=== PATIENT | female | born 1960 | race African-American/Black ===

== ENCOUNTER 2016-11-04 11:56 | Emergency (ER) | payer OTHER ==
[2016-11-04 12:15] VITALS: BP 137/72; PULSE 64; TEMP 97.9; BMI 35.9
--- NOTE | 2016-11-04 12:32 | PDOC ---
History of Present Illness - General Chief Complaint: Pain Stated Complaint: SWOLLEN LT LEG Time Seen by Provider: 11/04/16 12:25 History Source: Patient Exam Limitations: No Limitations - History of Present Illness Initial Comments: CHIEF COMPLAINT: 55 y/o afebrile female with PMH RA, HTN, HLD, GA without stents c/o left lower leg pain for the past 2 days. 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 She is worried about a blood clot although she's never had one in the past. She denies f/c, n/v/d, cough, hemoptysis, CP, SOB, trauma to affected leg, redness/swelling to affected leg. Vital signs on arrival are within normal limits. REVIEW OF SYSTEMS: GENERAL/CONSTITUTIONAL: No fever/chills. No weakness. No weight change. CARDIOVASCULAR: No chest pain or shortness of breath. RESPIRATORY: No cough, wheezing, or hemoptysis. GENITOURINARY: No dysuria, frequency, or change in urination. MUSCULOSKELETAL: +left lower leg pain. No neck or back pain. SKIN: No rash or easy bruising. NEUROLOGIC: No headache, vertigo, loss of consciousness, or loss of sensation. PHYSICAL EXAM: VITAL_SIGNS: within normal limits GENERAL_APPEARANCE: alert, cooperative, no obvious discomfort. The patient ambulates without limp. MENTAL_STATUS: speech clear, oriented X 3, responds appropriately to questions. NEURO: motor intact and sensory intact in injured extremity. EXTREMITIES: good pulse in injured extremity. TTP of left anterior proximal lower extremity. +deann's sign left lower extremity. No tibial plateau TTP. Warmth to anterior lower extremity without erythema or edema. SKIN: warm, dry, good color. Past History - Past Medical History Allergies/Adverse Reactions: Allergies Allergy/AdvReac Type Severity Reaction Status Date / Time cephalexin monohydrate Allergy Rash Verified 11/04/16 12:12 [From [employer]] Home Medications: Ambulatory Orders Amlodipine Besylate [Norvasc -] 10 mg PO DAILY 10/10/13 Atorvastatin Ca [Lipitor] 40 mg PO HS 10/10/13 Folic Acid 0.8 mg PO DAILY 10/10/13 Methotrexate [Mexate -] 20 mg PO Q7D 10/10/13 Metoprolol Succinate 100 mg PO DAILY 10/10/13 Cardiac Disorders: Yes ([place]) Diabetes: Yes HTN: Yes Hypercholesterolemia: Yes Other medical history: RA. - Surgical History Gastric Stapling: No (GASTRIC SLEEVE) - Psycho/Social/Smoking Cessation Hx Anxiety: No Suicidal Ideation: No Smoking History: Never smoked If you are a former smoker, when did you quit?: 2007 Information on smoking cessation initiated: No Hx Alcohol Use: No Drug/Substance Use Hx: No Substance Use Type: None *Physical Exam - Vital Signs Last Vital Signs Temp Pulse Resp BP Pulse Ox 97.9 F 64 18 137/72 100 11/04/16 12:12 11/04/16 12:12 11/04/16 12:12 11/04/16 12:12 11/04/16 12:12 Medical Decision Making - Medical Decision Making A/P: 55 y/o afebrile female with left calf pain. Plan is as follows: 1. Doppler left LE Left lower extremity doppler IMPRESSION: There is no evidence of DVT in left lower extremity. Gave the results to the patient. Suggested she take her normal pain medication at home for her leg pain, elevate and ice the affected leg and f/u with her doctor if symptoms persist. The patient verbalizes understanding of all instructions, has no further questions and is awaiting discharge. *DC/Admit/Observation/Transfer Diagnosis at time of Disposition: Leg pain, left - Discharge Dispostion Disposition: HOME Condition at time of disposition: Good - Referrals Referrals: Mark Garner [Primary Care Provider] - Call tomorrow - Patient Instructions Printed Discharge Instructions: DI for Leg Pain Additional Instructions: Discharge Instructions: -Take OTC pain medications for your leg pain -Elevate and ice your leg to help with swelling/pain -Follow up with your doctor if symptoms persist
== END 2016-11-04 13:22 | disposition home or self-care (01) ==
LOC: JERFT 11:56
DX: M79.662 Pain in left lower leg (principal); I25.2 Old myocardial infarction; I11.9 Hypertensive heart disease without heart failure; E78.00 Pure hypercholesterolemia, unspecified; E11.9 Type 2 diabetes mellitus without complications; M06.9 Rheumatoid arthritis, unspecified
CPT/HCPCS: 93971-TC; 99281-25

== ENCOUNTER 2017-05-03 11:28 | Inpatient (IN) | payer OTHER ==
--- NOTE | 2017-05-03 11:40 | PDOC ---
History of Present Illness - General Stated Complaint: FEVER Past History - Past Medical History Allergies/Adverse Reactions: Allergies Allergy/AdvReac Type Severity Reaction Status Date / Time cephalexin monohydrate Allergy Rash Verified 11/04/16 12:12 [From [facility]] Home Medications: Ambulatory Orders Amlodipine Besylate [Norvasc -] 10 mg PO DAILY 10/10/13 Atorvastatin Ca [Lipitor] 40 mg PO HS 10/10/13 Folic Acid 0.8 mg PO DAILY 10/10/13 Methotrexate [Mexate -] 20 mg PO Q7D 10/10/13 Metoprolol Succinate 100 mg PO DAILY 10/10/13 Cardiac Disorders: Yes (ID) Diabetes: Yes HTN: Yes Hypercholesterolemia: Yes - Surgical History Gastric Stapling: No (GASTRIC SLEEVE) - Psycho/Social/Smoking Cessation Hx Anxiety: No Suicidal Ideation: No Smoking History: Never smoked If you are a former smoker, when did you quit?: 2007 Hx Alcohol Use: No Drug/Substance Use Hx: No Substance Use Type: None
--- NOTE | 2017-05-03 12:21 | PDOC ---
History of Present Illness - General History Source: Patient, Old Records Exam Limitations: No Limitations - History of Present Illness Initial Comments: 05/03/17 12:29 The patient is a 56-year-old woman, accompanied by her daughter, with a significant past medical history of hypertension, hypercholesterolemia, myocardial infarction (2004;no stents), diabetes mellitus (diet controlled) and rheumatoid arthrtitis who presents to the emergency department with a fever. Upon triage, vitals are significant for a temperature of 103.2 and a heartbeat of 98bpm. Patient states that her symptoms started approximately 4 days ago with a brief period of chest discomfort that spontaneously resolved. The next day, she developed an intermittent nonproductive cough, a sore throat, chills and generalized body aches. She reports compliance with Nyquil without much help. She ultimately developed a headache, for which she took both Excedrin and Tylenol this morning at 06:00 AM without relief. No lightheadedness, dizziness, nausea, vomiting. No urinary complaints. Allergies: Cephalexin Monohydrate Past Surgical History: Gastric Sleeve Social History: Former smoker. No EtOH and recreational drug use. Primary Care Physician: Located in [place], [place] <Manasa Lorenzo - Last Filed: 05/03/17 14:55> <Nichol Baron - Last Filed: 05/03/17 17:00> - General Chief Complaint: SIRS, Suspected/Possible Stated Complaint: FEVER Time Seen by Provider: 05/03/17 11:40 Past History <Manasa Lorenzo - Last Filed: 05/03/17 14:55> - Past Medical History Cardiac Disorders: Yes ([place]) Diabetes: Yes HTN: Yes Hypercholesterolemia: Yes - Surgical History Gastric Stapling: No (GASTRIC SLEEVE) - Psycho/Social/Smoking Cessation Hx Anxiety: No Suicidal Ideation: No Smoking History: Never smoked If you are a former smoker, when did you quit?: 2007 Hx Alcohol Use: No Drug/Substance Use Hx: No Substance Use Type: None <Nichol Baron - Last Filed: 05/03/17 17:00> - Past Medical History Allergies/Adverse Reactions: Allergies Allergy/AdvReac Type Severity Reaction Status Date / Time cephalexin monohydrate Allergy Rash Verified 05/03/17 12:11 [From [employer]] Home Medications: Ambulatory Orders Amlodipine Besylate [Norvasc -] 10 mg PO DAILY 10/10/13 Folic Acid 1 mg PO DAILY 10/10/13 Methotrexate [Mexate -] 25 mg PO Q7D 10/10/13 Metoprolol Succinate 100 mg PO DAILY 10/10/13 Prednisone 5 mg PO DAILY 05/03/17 Review of Systems - Review of Systems Able to Perform ROS?: Yes Comments:: 05/03/17 12:31 GENERAL/CONSTITUTIONAL: Yes: Fever. Chills. Body Aches. HEAD, EYES, EARS, NOSE AND THROAT: Yes: Sore throat. No change in vision. No ear pain or discharge. CARDIOVASCULAR: Yes: Chest discomfort. No shortness of breath. RESPIRATORY: Yes: Cough. No wheezing, or hemoptysis. GASTROINTESTINAL: No nausea, vomiting, diarrhea or constipation. GENITOURINARY: No dysuria, frequency, or change in urination. MUSCULOSKELETAL: No joint or muscle swelling or pain. No neck or back pain. SKIN: No rash NEUROLOGIC: Yes: Headache. No vertigo, loss of consciousness, or change in strength/sensation. ENDOCRINE: No increased thirst. No abnormal weight change. HEMATOLOGIC/LYMPHATIC: No anemia, easy bleeding, or history of blood clots. ALLERGIC/IMMUNOLOGIC: No hives or skin allergy. <Manasa Lorenzo - Last Filed: 05/03/17 14:55> *Physical Exam - Vital Signs Last Vital Signs Temp Pulse Resp BP Pulse Ox 103.2 F H 98 H 20 137/78 05/03/17 11:40 05/03/17 11:40 05/03/17 11:40 05/03/17 11:40 05/03/17 11:40 <Manasa Lorenzo - Last Filed: 05/03/17 14:55> - Vital Signs Last Vital Signs Temp Pulse Resp BP Pulse Ox 103.2 F H 98 H 20 137/78 05/03/17 11:40 05/03/17 11:40 05/03/17 11:40 05/03/17 11:40 05/03/17 11:40 - Physical Exam Comments: GENERAL: Awake, alert, and fully oriented, in no acute distress. Intermittent loose cough. HEAD: No signs of trauma EYES: PERRLA, EOMI, sclera anicteric, conjunctiva clear ENT: Auricles normal inspection, hearing grossly normal, nares patent, oropharynx erythematous without exudates. Moist mucosa NECK: Normal ROM, supple, no lymphadenopathy, JVD, or masses LUNGS: Breath sounds equal, clear to auscultation bilaterally. No wheezes, and no crackles HEART: Regular rate and rhythm, normal S1 and S2, no murmurs, rubs or gallops ABDOMEN: Soft, nontender, normoactive bowel sounds. No guarding, no rebound. No masses EXTREMITIES: Normal range of motion, no edema. No clubbing or cyanosis. No cords, erythema, or tenderness NEUROLOGICAL: Cranial nerves II through XII grossly intact. Normal speech, normal gait SKIN: Warm, Dry, normal turgor, no rashes or lesions noted. <Nichol Baron - Last Filed: 05/03/17 17:00> ED Treatment Course - LABORATORY CBC & Chemistry Diagram: 05/03/17 13:00 05/03/17 13:00 - RADIOLOGY Radiograph Interpretation: 05/03/17 14:55 EXAM RAD/CHEST X-RAY PORTABLE Interpreted by Dr. Zack Lopes IMPRESSION: Since 01/03/2011 again there is the prominent mediastinum but no sign of an acute process. The angles are sharp. The soft tissues are intact and there are some degenerative changes. <Manasa Lorenzo - Last Filed: 05/03/17 14:55> - LABORATORY CBC & Chemistry Diagram: 05/03/17 13:00 05/03/17 13:00 <Nichol Baron - Last Filed: 05/03/17 17:00> Medical Decision Making - Medical Decision Making 05/03/17 16:35 Patient initially significantly improved with IV fluids, IV tylenol. Now she has chills again, rigors. Initial lactate was elevated. Patient with leukocytosis. UA wnl. CXR no consolidation, however, I suspect the etiology is respiratory, as she has a hacking cough and initial O2Sat was 95%. 05/03/17 16:55 Pt developed itching with levaquin. Levaquin was stopped. Will change to azithro. <Nichol Baron - Last Filed: 05/03/17 17:00> *DC/Admit/Observation/Transfer - Attestations Scribe Attestion: 05/03/17 12:31 Documentation prepared by Manasa Lorenzo, acting as medical physicist for Nichol Baron MD. <Manasa Lorenzo - Last Filed: 05/03/17 14:55> - Discharge Dispostion Admit: Yes <Nichol Baron - Last Filed: 05/03/17 17:00> Diagnosis at time of Disposition: Elevated lactic acid level Pneumonia Qualifiers: Pneumonia type: due to unspecified organism Laterality: unspecified laterality Lung location: unspecified part of lung Qualified Code(s): J18.9 - Pneumonia, unspecified organism Fever Qualifiers: Fever type: unspecified Qualified Code(s): R50.9 - Fever, unspecified - Discharge Dispostion Condition at time of disposition: Stable
[2017-05-03] MEDS ORDERED: ACETAMINOPHEN 1000 MG/100 ML VIAL (NON FORMULARY) IVPB ONE (12:37)
[2017-05-03] MEDS ORDERED: SODIUM CHLORIDE 1,000 ML IV STA ×2 (12:37→13:51)
[2017-05-03] MEDS ORDERED: ACETAMINOPHEN INJECTION 100 ML IVPB ONE (12:51)
[2017-05-03 13:14] LABS: BASOPHIL 0.8 % (0-2.0); EOSINOPHIL 0.1 % (0-4.5); MCH 30.2 pg (25.7-33.7); MCHC 32.6 g/dl (32.0-36.0); MEAN CELL VOLUME 92.5 fl (80-96); MEAN PLT VOLUME 10.5 fl (7.5-11.1); NEUTROPHILS 77.7 % (42.8-82.8); PLATELET COUNT 178 K/MM3 (134-434); RDW 15.3 % (11.6-15.6); WHITE BLOOD COUNT 15.7 K/mm3 (4.0-10.0)
[2017-05-03 13:16] LABS: URINE APPEARANCE CLEAR; URINE BILIRUBIN NEGATIVE (NEGATIVE); URINE BLOOD NEGATIVE (NEGATIVE); URINE COLOR YELLOW; URINE GLUCOSE (UA) NEGATIVE (NEGATIVE); URINE KETONE NEGATIVE (NEGATIVE); URINE LEUK ESTERASE NEGATIVE (NEGATIVE); URINE NITRITE NEGATIVE (NEGATIVE); URINE PROTEIN NEGATIVE (NEGATIVE); URINE UROBILINOGEN 4.0 E.U/dl mg/dL (0.2-1.0)
[2017-05-03 13:31] LABS: ALBUMIN 3.3 g/dl (3.4-5.0); ALK PHOS 105 U/L (45-117); ANION GAP 10 (8-16); CALCIUM 8.9 mg/dL (8.5-10.1); CO2 28 mmol/L (21-32); CREATININE 1.1 mg/dL (0.55-1.02); GLUCOSE,RANDOM 116 mg/dL (74-106); SGOT/AST 14 U/L (15-37); SGPT/ALT 21 U/L (12-78); TOT PROT 7.9 g/dl (6.4-8.2)
[2017-05-03] MEDS ORDERED: PANTOPRAZOLE SODIUM 40 MG in SODIUM CHLORIDE 100 ML IVPB ONE (13:51)
[2017-05-03] MEDS ORDERED: PANTOPRAZOLE SODIUM 100 ML IVPB ONE (13:56)
[2017-05-03] MEDS ORDERED: IBUPROFEN 600 MG TABLET (FP) PO ONE ×2 (16:28→16:36)
[2017-05-03] MEDS ORDERED: LEVOFLOXACIN 750 MG IVPB 150 ML IVPB ONE (16:36)
[2017-05-03] MEDS: LEVOFLOXACIN 750 MG IVPB 150 ML IVPB ONE ×2 (16:51→16:57)
[2017-05-03] MEDS ORDERED: AZITHROMYCIN IVPB 500 MG in DEXTROSE 5%-WATER - 250 ML IVPB ONE (16:53)
[2017-05-03] MEDS ORDERED: AZITHROMYCIN IVPB 250 ML IVPB ONE ×2 (16:59→17:00)
--- NOTE | 2017-05-03 17:25 | HP ---
Admitting History and Physical - Primary Care Physician PCP: not on staff - Admission Chief Complaint: Fever History of Present Illness: 56F with history of HTN HLD DM (Diet controlled) CAD MT in the past no stents and rheumatoid arthritis on methotrexate and chronic prednisone presents to the ED with a 4 day history of fevers. She states 4 days ago she had some chest discomfort which went away and then the next day she had fevers chills and sore throat and she felt better that night. the third day she got much worse and had fevers measured as high as 103.5 chills rigors sore throat severe headaches and seeing yellow. She also states she had a dry cough. She denies diarrhea or sputum production. She denies urinary symptoms. In ED Tmax 103.2. 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 She is allergic to keflex. She was given levaquin in the ED and broke out in hives. levawuin stopped and treated with benadryl then given azithromycin. History Source: Patient Limitations to Obtaining History: Clinical Condition - Past Medical History Additional Past Medical History: PMH: HTN HLD (stopped lipitor due to muscle cramps) DM (Diet controlled), Rheumatoid arthritis on methotrexate and prednisone CAD s/p MT no stents PSH: Knee Surgery Heel surgery Gastric sleeve tubal ligation - Smoking History Smoking history: Former smoker If you are a former smoker, when did you quit?: 2007 - Alcohol/Substance Use Hx Alcohol Use: No History of Substance Use: reports: None Home Medications - Allergies Allergies/Adverse Reactions: Allergies Allergy/AdvReac Type Severity Reaction Status Date / Time cephalexin monohydrate Allergy Rash Verified 05/03/17 12:11 [From Keflex] levofloxacin [From Levaquin] Allergy Rash Verified 05/03/17 18:56 - Home Medications Home Medications: Ambulatory Orders Amlodipine Besylate [Norvasc -] 10 mg PO DAILY 10/10/13 Folic Acid 1 mg PO DAILY 10/10/13 Methotrexate [Mexate -] 25 mg PO Q7D 10/10/13 Metoprolol Succinate 100 mg PO DAILY 10/10/13 Aspirin [ASA -] 81 mg PO DAILY 05/03/17 Omeprazole 40 mg PO DAILY 05/03/17 Prednisone 5 mg PO DAILY 05/03/17 Review of Systems - Review of Systems Constitutional: reports: Chills, Fever, Loss of Appetite, Malaise Eyes: reports: Other (seeing yellow) HENT: reports: No Symptoms Neck: reports: No Symptoms Cardiovascular: reports: Chest Pain, Shortness of Breath Respiratory: reports: No Symptoms Gastrointestinal: reports: No Symptoms Genitourinary: reports: No Symptoms Breasts: reports: No Symptoms Reported Musculoskeletal: reports: No Symptoms Integumentary: reports: No Symptoms Neurological: reports: Headache Hematology/Lymphatic: reports: No Symptoms Psychiatric: reports: No Symptoms Physical Examination Vital Signs: Vital Signs Temperature 101.3 F H 05/03/17 17:07 Pulse Rate 92 H 05/03/17 17:07 Respiratory Rate 20 05/03/17 17:07 Blood Pressure 155/96 05/03/17 17:07 O2 Sat by Pulse Oximetry (%) 97 05/03/17 17:07 Constitutional: Yes: Well Nourished, No Distress, Calm Eyes: Yes: WNL, Conjunctiva Clear, EOM Intact HENT: Yes: Atraumatic, Normocephalic Neck: Yes: Supple, Trachea Midline Cardiovascular: Yes: Regular Rate and Rhythm Respiratory: Yes: Regular, CTA Bilaterally Gastrointestinal: Yes: Normal Bowel Sounds, Soft Musculoskeletal: Yes: WNL Extremities: Yes: WNL Edema: No Neurological: Yes: Alert, Oriented, Cran Nerves II-XII Intact, Other (no neck stiffness negative kernigs negative brudzinski) ...Motor Strength: WNL Psychiatric: Yes: Alert, Oriented Imaging - Results Chest X-ray: Report Reviewed, Image Reviewed Assessment/Plan 56F with multiple medical problems presents with severe sepsis Problem list: Severe sepsis possible pneumonia possible meningitis HTN HLD DM rheumatoid arthritis CAD s/p MT in the past Pln: Admit to med surg ID consult give Ampicillin Vancomycin and meropenem to cover the lungs and the brain in case of meningitis Neurology consult lumbar puncture hold methotrexate HIV testing restart norvasc at half the dose with hold parameters restart metoprolol f/u BCx f/u UCx CT chest CT head IVF ISS with BGM diabetic diet coags DVT/GI PPx PT consult Case discussed with attending and medical team full H&P to follow Visit type - Emergency Visit Emergency Visit: Yes ED Registration Date: 05/03/17 Care time: The patient presented to the Emergency Department on the above date and was hospitalized for further evaluation of their emergent condition. - New Patient This patient is new to me today: Yes Date on this admission: 05/03/17 - Critical Care Critical Care patient: No
--- NOTE | 2017-05-03 17:48 | HP ---
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 5 days ago the patient had nonspecific chest discomfort, no pain, no palpitations, no SOB. The next day the chest pain resolved, but the patient had a notable sore throat. On night, the patient felt very ill, having a with chills, rigors, myalgia of face, back, legs. She has a cough with minimal brown colored phlegm. She is also complaining of a severe headache which is new, associated with no neck stiffness. She had a recent history of vision changes, specifically yellow colored vision which resolved in one day (not on digoxin, no hx of high bilirubin, no hx of cataracts). The patient took Tylenol and Nyquil without relief. She denies lightheadedness, nausea, CP, shortness of breath, no diarrhea or constipation. No joint swelling, no skin breakdown, no urinary symptoms. She is unsure of sick contacts because she works at a [place] [employer] [place]. She endorses loss of appetite and increased urinary frequency but thinks that is due to her diabetes. ER course was notable for: (1) IVF x2 bolus (2) Antipyretics (3) Antibiotics In the ER the patient was given 2 fluid boluses and Acetaminophen/Ibuprofen antipyretics. The patient started to feel better but later spiked a fever, which prompted the call to the medical admitting team. The patient was also started on Levofloxacin which resulted in a rash and hives. The patient was given Benedryl with relief, and was changed to Azithromycin. Recent Travel: None PAST MEDICAL HISTORY: HTN, HLD, [place] hx (2004), NIDDM, RHeumatoid Arthritis PAST SURGICAL HISTORY: 1980 - Tubal ligation 2005 - Open reduction of the R ankle 2012 - Gastric Sleeve 2014 - R knee replacement Social History: Smoking: Pt had a 30-45 pack year smoking history Alcohol: No history Drugs: No history Family History: Allergies: - Cephalosporin: rash - Levofloxaxin: rash + hives HOME MEDICATIONS: Home Medications Medication Instructions Recorded Amlodipine Besylate [Norvasc -] 10 mg PO DAILY 10/10/13 Folic Acid 1 mg PO DAILY 10/10/13 Methotrexate [Mexate -] 25 mg PO Q7D 10/10/13 Metoprolol Succinate 100 mg PO DAILY 10/10/13 Prednisone 5 mg PO DAILY 05/03/17 REVIEW OF SYSTEMS CONSTITUTIONAL: Absent: diaphoresis, generalized weakness,loss of appetite, weight change Present: fever, chills, malaise, HEENT: Absent: rhinorrhea, nasal congestion, throat pain, throat swelling, difficulty swallowing, mouth swelling, ear pain, eye pain Present: visual changes, headache CARDIOVASCULAR: Absent: chest pain, syncope, palpitations, irregular heart rate, lightheadedness , peripheral edema RESPIRATORY: Absent: shortness of breath, orthopnea, wheezing, stridor, hemoptysis Present: cough, dyspnea with exertion GASTROINTESTINAL: Absent: abdominal pain, abdominal distension, nausea, vomiting, diarrhea, constipation, melena, hematochezia GENITOURINARY: Absent: dysuria, frequency, urgency, hesitancy, hematuria, flank pain, genital pain MUSCULOSKELETAL: Absent: arthralgia, joint swelling, neck pain Present: myalgia, back pain SKIN: Absent: rash, itching, pallor HEMATOLOGIC/IMMUNOLOGIC: Absent: easy bleeding, easy bruising, lymphadenopathy, frequent infections ENDOCRINE: Absent: unexplained weight gain, unexplained weight loss, heat intolerance, cold intolerance NEUROLOGIC: Absent: headache, focal weakness or paresthesias, dizziness, unsteady gait, seizure, mental status changes, bladder or bowel incontinence PSYCHIATRIC: Absent: anxiety, depression, suicidal or homicidal ideation, hallucinations. PHYSICAL EXAMINATION GENERAL: Awake, alert, and fully oriented, was sitting in bed looking ill, coughing. During the examination, the patient became very nauseous and almost vomitted in a container. HEENT: PERRLA, EOMi, No signs of pharyngeal erythema, exudate, lymphadenopathy, sores. +Dry mucous membranes NECK: Normal range of motion, no neck stiffness, supple without lymphadenopathy LUNGS: Breath sounds equal, clear to auscultation bilaterally. No wheezes, and no crackles. No accessory muscle use. HEART: Regular rate and rhythm, normal S1 and S2, with +2/6 systolic murmur ABDOMEN: Soft, nontender, not distended, hypoactive bowel sounds, no guarding, no rebound, no masses. MUSCULOSKELETAL: Normal range of motion at all joints. No bony deformities or tenderness. No CVA tenderness. UPPER EXTREMITIES: 2+ pulses, warm, well-perfused. No cyanosis. No clubbing. No peripheral edema. LOWER EXTREMITIES: 2+ pulses, warm, well-perfused. No calf tenderness. No peripheral edema. NEUROLOGICAL: Cranial nerves II-XII intact. Sensation was equal and intact in face and body bilaterally, muscle strength was 5/5 in all extremities, reflexes were 1+. Pt was oriented x3. Normal speech. Normal gait. PSYCHIATRIC: Cooperative. Good eye contact. Appropriate mood and affect. ASSESSMENT/PLAN: Patient is a 56yo F with a PMHx of HTN, HLD, [place] hx (2004), NIDDM, Rheumatoid Arthritis on shelter Prednisone who presented in severe sepsis. # Severe Sepsis - possible PNA or meningitis - Leukocytosis of 15.7, Tmax 103.2, Lactic Acid 3.1, could be viral or bacterial PNA or meningitis - R/o Meningitis: Head CT prior to lumbar puncture, and MRI with contrast pending, Lumbar spinal tap pending CT scan and correction of elevated INR - R/o PNA: CT chest to check for infiltrate - Blood cx and urine cx pending, flu antigen negative, HIV testing pending - Broad spectrum coverage with Ampicillin + Vancomycin + Meropenem (pt has cephalosporin allergy, also immunocompromised) - ID and Neuro consult # Hx of Rheumatoid Arthritis - Will hold Methotrexate in lieu of sepsis - Restart Prednisone 5mg PO QD # Hx of HTN - Started half home dose of Amlodipine (5mg QD), restart Metoprolol 100mg QD # Hx of HLD - Lipid Panel, patient was on statin but stopped taking due to myalgia # Hx of DM2 - A1C, pt not on home meds, will start Insulin Sliding Scale with BGM # FEN - Fluids: IV NS 125mL/hr - Electrolytes: Monitor - Nutrition: Diabetic diet # Prophylaxis - DVT: Heparin SQ and SCDs - GI: Protonix - Deconditioning: PT consult # Dispo - Admit to med-surg Visit type - Emergency Visit Emergency Visit: No - New Patient This patient is new to me today: No - Critical Care Critical Care patient: No
--- NOTE | 2017-05-03 18:17 | PN ---
Teaching Attending Note Name of Resident: Marty Ceja ATTENDING PHYSICIAN STATEMENT I saw and evaluated the patient. I reviewed the resident's note and discussed the case with the resident. I agree with the resident's findings and plan as documented. SUBJECTIVE: CC: fever and chills. HPI: 56 y/o lady with h/o DM ( diet controlled) , HTN, CAD, s/p IA, RA , gastric sleeve who presented to Hospital with fever x 4 days. sx started with fever , body aches, and chest discomfort ( described as sore x 1day ) , then she had a dry cough, with no sputum production. she continued to have fever 102-103 F, along with severe FRIAS, and visual changes " not blurry but funny vision " . she has no neck stiffness but back pain. she took tylenol and tylenol with caffeine . denies diarrhea , any sputum production, diarrhea or or abd pain. has no dysuria . she works at a [employer] and takes MTX for RA . OBJECTIVE: NAD , Awake alert and oriented x 3 . HEENT: no facial droop, round equal reactive pupils. EOMI, nl facial sensation , tongue and uvula at mid line , oropharynx with some erythema but no exudate . dry MM. no neck stiffness. CV: RRR. 2/6 SM at RUSB, LUSB . No JVD Lungs: CTAB Abd : obese , soft, NT, ND , nl BS Ext : no edema or edema , no rash Neuro : no facial droop, round equal reactive pupils. EOMI, nl facial sensation , tongue and uvula at mid line . strength 5/5 in upper and lower extremities proximally and distally . sensation to light touch nl. reflexes 2+ biceps and knee jerk b/l ASSESSMENT AND PLAN: 56 y/o lady with h/o DM ( diet controlled) , HTN, CAD, s/p IA, RA , gastric sleeve who presented to Hospital with FRIAS and fever x 4 days. She was found to have severe spesis . 1- severe sepsis: etiology still needs to be w/u. no diarrhea , or urinary sx , UA clean. cxray clear. of course , an infiltrate can't be r/o with only AP cxray and possibly when pt is dehydrated . flu swab neg fro A, B she has severe FRIAS , and visual changes, and inthe setting of high fever ,and sepsis in this immunocompromised patient on MTX, meningitis need to be considered and r/o - IVF for hydration - will need LP, spoke to Dr. Álvarez who will perform tonight - get stat CT head , before LP - MRI of brain , with gadolinium - start meropenem , ampicillin and vanco , as pt is immunocompromised and allergic to cephalosporin. those abx will cover any possible PNA - case was d/w Dr. Solis. - check CT of chest to r/o infiltrate - cx sent in ER 2- mild LEBRON : likely due to volume depletion and sepsis IVF 3- h/o HTN: reduce dose of norvasc with holding parameters 4- h/o DM , last A1c 5.2 . diabetic diet HLOC
[2017-05-03 18:55] VITALS: BMI 36.6
[2017-05-03] MEDS ORDERED: MEROPENEM 1 GM in DEXTROSE 5%-WATER - 100 ML IVPB SCH (19:00)
[2017-05-03] MEDS ORDERED: MEROPENEM 2 GM in DEXTROSE 5%-WATER - 100 ML IVPB SCH (19:15)
[2017-05-03] MEDS ORDERED: AMPICILLIN - 2 GM in SODIUM CHLORIDE 100 ML IVPB SCH (19:15)
[2017-05-03] MEDS ORDERED: SODIUM CHLORIDE 1,000 ML IV SCH (19:45)
[2017-05-03 19:52] LABS: INR 1.44 (0.82-1.09)
[2017-05-03 19:54] LABS: ACTIVATED PTT 32.8 SECONDS (26.9-34.4)
[2017-05-03] MEDS: AMPICILLIN - 2 GM in SODIUM CHLORIDE 100 ML IVPB SCH ×2 (20:40→21:47)
[2017-05-03] MEDS: HEPARIN NA (PORCINE) 5,000 UNITS/ML 1ML VIAL SQ SCH (21:48)
[2017-05-03] MEDS: INSULIN SLIDING SCALE (NOVOLOG) 1 VIAL SQ SCH (21:58)
--- NOTE | 2017-05-03 22:09 | CON.NEURO ---
Consult - History of Present Illness History of Present Illness: 56 year old female hsitory of DM, HTN, HLP, CAD AND RHEUMATOID ARTHRITIS, came with fever for three days and she has recorded 103 and here at hospital it was recorded 101. Patient also complain of severe hadache for one day, her headhace is much better after motrin. There is no neck stiffness or pain or mental status change. Patient denies any dysphagia, diplopia dysarthria. Edin has inr of 1.[address] scan not done . Hospitalist called to do spinal tap tonight. I was told that ct head is normal. - Alcohol/Substance Use Hx Alcohol Use: No History of Substance Use: reports: None - Smoking History Smoking history: Former smoker Have you smoked in the past 12 months: No Aproximately how many cigarettes per day: 30 If you are a former smoker, when did you quit?: 2007 Home Medications - Allergies Allergies/Adverse Reactions: Allergies Allergy/AdvReac Type Severity Reaction Status Date / Time cephalexin monohydrate Allergy Rash Verified 05/03/17 12:11 [From Keflex] levofloxacin [From Levaquin] Allergy Rash Verified 05/03/17 18:56 - Home Medications Home Medications: Ambulatory Orders Amlodipine Besylate [Norvasc -] 10 mg PO DAILY 10/10/13 Folic Acid 1 mg PO DAILY 10/10/13 Methotrexate [Mexate -] 25 mg PO Q7D 10/10/13 Metoprolol Succinate 100 mg PO DAILY 10/10/13 Aspirin [ASA -] 81 mg PO DAILY 05/03/17 Omeprazole 40 mg PO DAILY 05/03/17 Prednisone 5 mg PO DAILY 05/03/17 Physical Exam-Neuro Vital Signs: Vital Signs Temperature 99.2 F 05/03/17 18:50 Pulse Rate 86 05/03/17 18:50 Respiratory Rate 20 05/03/17 18:50 Blood Pressure 101/61 05/03/17 18:50 O2 Sat by Pulse Oximetry (%) 97 05/03/17 18:46 Labs: INR, PTT INR 1.44 (0.82-1.09) H 05/03/17 19:18 NIH Stroke Scale - Total Score NIH Stroke Scale Score: 0 Assessment/Plan CC fever and headache , rule out meningitis HPI 56 year old female hsitory of DM, HTN, HLP, CAD AND RHEUMATOID ARTHRITIS, came with fever for three days and she has recorded 103 and here at hospital it was recorded 101. Patient also complain of severe hadache for one day, her headhace is much better after motrin. There is no neck stiffness or pain or mental status change. Patient denies any dysphagia, diplopia dysarthria. Edin has inr of 1.[address] scan not done . Hospitalist called to do spinal tap tonight. I was told that ct head is normal. PAST MEDICAL HISTORY: HTN, HLD, [place] hx (2004), NIDDM, RHeumatoid Arthritis PAST SURGICAL HISTORY: 1980 - Tubal ligation 2005 - Open reduction of the R ankle 2012 - Gastric Sleeve 2014 - R knee replacement Social History: Smoking: Pt had a 30-45 pack year smoking history Alcohol: No history Drugs: No history Family History: Allergies: - Cephalosporin: rash - Levofloxaxin: rash + hives HOME MEDICATIONS: Home Medications Medication Instructions Recorded Amlodipine Besylate [Norvasc -] 10 mg PO DAILY 10/10/13 Folic Acid 1 mg PO DAILY 10/10/13 Methotrexate [Mexate -] 25 mg PO Q7D 10/10/13 Metoprolol Succinate 100 mg PO DAILY 10/10/13 Prednisone 5 mg PO DAILY 05/03/17 Ros reviwed in chart Neurological Examination Alert oriented x 3 cn all intact , eomi and no facial asymmetry motor normal strength senation is normal reflex are diminished but symmetrical absolutely no neck stiffness ct not done and inr 1.44 Assessment-- 56 year old female history of fever for three days and compalin of headhace , in absence of mental status change or neck stiffness , suspician for meningitis is low. Plan primary team wanted to do spinal tap. I came to evluate patient and spinal tap, and there was no ct head done and inr 1.44 ( discussed with hospitalist and felt inr has be below 1.2 to do spinal tap) Plan continue abx - ct head - suspician for meningitis is low , once ct head is normal and inr is normal, would do spinal tap. Please call us back again thank juliette pelaez md
[2017-05-03] MEDS: MEROPENEM 2 GM in SODIUM CHLORIDE 100 ML IVPB SCH (22:38)
[2017-05-04] MEDS: VANCOMYCIN 1,500 MG in DEXTROSE 5%-WATER - 500 ML IVPB SCH ×3 (00:07→22:19)
[2017-05-04] MEDS ORDERED: diphenhydrAMINE HCL 12.5 MG/5 ML UNIT-DOSE CUPS PO PRN (00:18)
[2017-05-04] MEDS: AMPICILLIN - 2 GM in SODIUM CHLORIDE 100 ML IVPB SCH ×3 (02:25→09:17)
[2017-05-04] MEDS: MEROPENEM 2 GM in SODIUM CHLORIDE 100 ML IVPB SCH ×3 (02:55→18:10)
[2017-05-04] MEDS: HEPARIN NA (PORCINE) 5,000 UNITS/ML 1ML VIAL SQ SCH ×3 (06:40→21:07)
[2017-05-04] MEDS: INSULIN SLIDING SCALE (NOVOLOG) 1 VIAL SQ SCH ×2 (06:40→12:44)
[2017-05-04] MEDS ORDERED: ACETAMINOPHEN 325 MG TABLET (FP) PO ONE (07:27)
[2017-05-04] MEDS ORDERED: guaiFENesin 200 MG/10 ML 10 ML UNIT-DOSE CUPS PO ONE (07:43)
[2017-05-04 08:02] LABS: EOSINOPHIL 0.7 % (0-4.5); MCH 30.9 pg (25.7-33.7); MCHC 33.3 g/dl (32.0-36.0); MEAN PLT VOLUME 10.4 fl (7.5-11.1); NEUTROPHILS 65.8 % (42.8-82.8); PLATELET COUNT 168 K/MM3 (134-434); RDW 14.9 % (11.6-15.6); WHITE BLOOD COUNT 9.8 K/mm3 (4.0-10.0)
[2017-05-04 08:25] LABS: ALBUMIN 2.7 g/dl (3.4-5.0); ANION GAP 9 (8-16); CO2 25 mmol/L (21-32); GLUCOSE,RANDOM 113 mg/dL (74-106); MAGNESIUM 2.2 mg/dL (1.8-2.4)
[2017-05-04] MEDS ORDERED: PT OWN MED DRAWER 7, Y5N ONE ×2 (08:28→17:32)
[2017-05-04 08:30] LABS: ALK PHOS 83 U/L (45-117); BILIRUBIN,TOTAL 0.8 mg/dL (0.2-1.0); CREATININE 0.8 mg/dL (0.55-1.02); SGOT/AST 13 U/L (15-37); SGPT/ALT 18 U/L (12-78); TOT PROT 6.6 g/dl (6.4-8.2)
[2017-05-04] MEDS: predniSONE 5 MG TABLET (UD) PO SCH (09:18)
[2017-05-04] MEDS: METOPROLOL SUCCINATE 100 MG TAB.SR.24H (FP) PO SCH (09:18)
[2017-05-04] MEDS: amLODIPine BESYLATE 5 MG TABLET (FP) PO SCH (09:18)
[2017-05-04] MEDS: FOLIC ACID 1 MG TABLET (FP) PO SCH (09:18)
[2017-05-04 09:27] LABS: INR 1.31 (0.82-1.09); PROTHROMBIN TIME (PATIENT) 14.5 SEC (9.98-11.88)
--- NOTE | 2017-05-04 11:41 | CONSULT ---
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 Patient took nyquil and tylenolol and then went to work next day.she for next few days continued to spike fevers and patient was off on so she stayed home. Her fever and chills continued with her taking medications Patient again went to work on friday but again spiked fever with weakness and she came back home finally she came to the hospital yesterday and her last fever spike was 101 this morning She did complain of headache but her headaches were mainly associated with fevers and when she spiked She denies any headaches otherwise and light does not bother her nor does movement of her neck one important thing is that during this time she was feeling a type of heaviness in her chest and then she always felt some type of discomfort in her chest. she mentions she has no dirrhoea or any other issues,but since yesterday has started coughing with no sputum production currently patient feels better. - History Source History Provided By: Patient Limitations to Obtaining History: No Limitations - Alcohol/Substance Use Hx Alcohol Use: No History of Substance Use: reports: None - Smoking History Smoking history: Former smoker Have you smoked in the past 12 months: No Aproximately how many cigarettes per day: 30 If you are a former smoker, when did you quit?: 2007 Home Medications - Allergies Allergies/Adverse Reactions: Allergies Allergy/AdvReac Type Severity Reaction Status Date / Time cephalexin monohydrate Allergy Rash Verified 05/03/17 12:11 [From Keflex] levofloxacin [From Levaquin] Allergy Rash Verified 05/03/17 18:56 - Home Medications Home Medications: Ambulatory Orders Amlodipine Besylate [Norvasc -] 10 mg PO DAILY 10/10/13 Folic Acid 1 mg PO DAILY 10/10/13 Methotrexate [Mexate -] 25 mg PO Q7D 10/10/13 Metoprolol Succinate 100 mg PO DAILY 10/10/13 Aspirin [ASA -] 81 mg PO DAILY 05/03/17 Omeprazole 40 mg PO DAILY 05/03/17 Prednisone 5 mg PO DAILY 05/03/17 Review of Systems - Review of Systems Constitutional: reports: Chills, Fever, Weakness Eyes: reports: No Symptoms HENT: reports: No Symptoms Neck: reports: No Symptoms Cardiovascular: reports: Other (chest heaviness) Respiratory: reports: Cough Gastrointestinal: reports: No Symptoms Genitourinary: reports: No Symptoms Integumentary: reports: No Symptoms Neurological: reports: No Symptoms Endocrine: reports: No Symptoms Hematology/Lymphatic: reports: No Symptoms Psychiatric: reports: No Symptoms Physical Exam Vital Signs: Vital Signs Temperature 101 F H 05/04/17 07:00 Pulse Rate 92 H 05/04/17 07:00 Respiratory Rate 18 05/04/17 07:00 Blood Pressure 129/68 05/04/17 07:00 O2 Sat by Pulse Oximetry (%) 97 05/03/17 21:00 Constitutional: Yes: Well Nourished, No Distress, Calm, Obese Eyes: Yes: Conjunctiva Clear HENT: Yes: Atraumatic, Normocephalic Neck: Yes: Supple, Trachea Midline, Other (all movements of the neck without any issues with no pain) Cardiovascular: Yes: Regular Rate and Rhythm Respiratory: Yes: Regular, Poor Air Entry (bases), Other (crackles present bilaterally) Gastrointestinal: Yes: Normal Bowel Sounds, Soft Musculoskeletal: Yes: WNL Extremities: Yes: WNL Neurological: Yes: Alert, Oriented Psychiatric: Yes: Alert, Oriented Labs: CBC, BMP 05/04/17 06:00 05/04/17 06:00 Imaging - Results Chest X-ray: Report Reviewed, Image Reviewed Cat Scan: Report Reviewed, Image Reviewed MRI: Image Reviewed Assessment/Plan 56yo F with a PMHx of HTN, HLD, [place] hx (2004), NIDDM, Rheumatoid Arthritis on senior care Prednisone and methotrexate after evaluating the patient i have a strong suspicion that her lungs might be the source of infection,but looking at her symptoms of chest heaviness i am also worried from cardiac point also there are finding on the lung ct which is worrisome and might need to be further worked up patient also immunocompromised she has been alf sepsis pneumonia Rheumatoid Arthritis HTn HLD DM fever plan stopped ampicillin will continue current abx will order an echo rest as per primary
--- NOTE | 2017-05-04 11:58 | PN ---
Progress Note (short form) - Note Progress Note: History of Present Illness: 56 year old female hsitory of DM, HTN, HLP, CAD AND RHEUMATOID ARTHRITIS, came with fever for three days and she has recorded 103 and here at hospital it was recorded 101. Patient also complain of severe hadache for one day, her headhace is much better after motrin. There is no neck stiffness or pain or mental status change. Patient denies any dysphagia, diplopia dysarthria. Edin has inr of 1.[address] scan not done . ct scan of brain i snormal, she has pnemonia on ct chest and no headhace now. - Alcohol/Substance Use Hx Alcohol Use: No History of Substance Use: reports: None - Smoking History Smoking history: Former smoker Have you smoked in the past 12 months: No Aproximately how many cigarettes per day: 30 If you are a former smoker, when did you quit?: 2007 Home Medications - Allergies Allergies/Adverse Reactions: Allergies Allergy/AdvReac Type Severity Reaction Status Date / Time cephalexin monohydrate Allergy Rash Verified 05/03/17 12:11 [From Keflex] levofloxacin [From Levaquin] Allergy Rash Verified 05/03/17 18:56 - Home Medications Home Medications: Ambulatory Orders Amlodipine Besylate [Norvasc -] 10 mg PO DAILY 10/10/13 Folic Acid 1 mg PO DAILY 10/10/13 Methotrexate [Mexate -] 25 mg PO Q7D 10/10/13 Metoprolol Succinate 100 mg PO DAILY 10/10/13 Aspirin [ASA -] 81 mg PO DAILY 05/03/17 Omeprazole 40 mg PO DAILY 05/03/17 Prednisone 5 mg PO DAILY 05/03/17 Physical Exam-Neuro Vital Signs: Vital Signs Temperature 99.2 F 05/03/17 18:50 Pulse Rate 86 05/03/17 18:50 Respiratory Rate 20 05/03/17 18:50 Blood Pressure 101/61 05/03/17 18:50 O2 Sat by Pulse Oximetry (%) 97 05/03/17 18:46 Labs: INR, PTT INR 1.44 (0.82-1.09) H 05/03/17 19:18 NIH Stroke Scale - Total Score NIH Stroke Scale Score: 0 Assessment/Plan CC fever and headache , rule out meningitis HPI 56 year old female hsitory of DM, HTN, HLP, CAD AND RHEUMATOID ARTHRITIS, came with fever for three days and she has recorded 103 and here at hospital it was recorded 101. Patient also complain of severe hadache for one day, her headhace is much better after motrin. There is no neck stiffness or pain or mental status change. Patient denies any dysphagia, diplopia dysarthria. Edin has inr of 1.[address] scan not done . Hospitalist called to do spinal tap tonight. I was told that ct head is normal. PAST MEDICAL HISTORY: HTN, HLD, [place] hx (2004), NIDDM, RHeumatoid Arthritis PAST SURGICAL HISTORY: 1980 - Tubal ligation 2005 - Open reduction of the R ankle 2012 - Gastric Sleeve 2014 - R knee replacement Social History: Smoking: Pt had a 30-45 pack year smoking history Alcohol: No history Drugs: No history Family History: Allergies: - Cephalosporin: rash - Levofloxaxin: rash + hives HOME MEDICATIONS: Home Medications Medication Instructions Recorded Amlodipine Besylate [Norvasc -] 10 mg PO DAILY 10/10/13 Folic Acid 1 mg PO DAILY 10/10/13 Methotrexate [Mexate -] 25 mg PO Q7D 10/10/13 Metoprolol Succinate 100 mg PO DAILY 10/10/13 Prednisone 5 mg PO DAILY 05/03/17 Ros reviwed in chart Neurological Examination Alert oriented x 3 cn all intact , eomi and no facial asymmetry motor normal strength senation is normal reflex are diminished but symmetrical absolutely no neck stiffness ct not done and inr 1.44 Assessment-- 56 year old female history of fever for three days and headhace, found to have pnemonia on ct chest, no headache and neck is soft. 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 Would hold spinal tap for now . call us if any question regards Clinton Álvarez MD Cell [phone]
[2017-05-04 12:36] LABS: HIV 1 & 2 AB NEGATIVE; HIV 1 AGp24 NEGATIVE
[2017-05-04] MEDS: SODIUM CHLORIDE 1,000 ML IV SCH (12:44)
--- NOTE | 2017-05-04 12:47 | PN ---
Progress Note (short form) - Note Progress Note: Subjective: feels much better, has no pain or FRIAS . no visual changes Objective: Vital Signs: Last Vital Signs Temp Pulse Resp BP Pulse Ox 101 F H 92 H 18 129/68 97 05/04/17 07:00 05/04/17 07:00 05/04/17 07:00 05/04/17 07:00 05/03/17 21:00 Laboratory Results - last 24 hr 05/03/17 05/03/17 05/03/17 13:00 13:00 13:00 WBC 15.7 H RBC 4.88 Hgb 14.7 Hct 45.1 MCV 92.5 MCH 30.2 MCHC 32.6 RDW 15.3 Plt Count 178 MPV 10.5 Neutrophils % 77.7 Lymphocytes % 9.0 Monocytes % 12.4 H Eosinophils % 0.1 Basophils % 0.8 INR PTT (Actin FS) Sodium 140 Potassium 3.8 Chloride 102 Carbon Dioxide 28 Anion Gap 10 BUN 12 Creatinine 1.1 H Creat Clearance w eGFR 51.20 POC Glucometer Random Glucose 116 H Lactic Acid Calcium 8.9 Phosphorus Magnesium Total Bilirubin 1.0 AST 14 L ALT 21 Alkaline Phosphatase 105 Total Protein 7.9 Albumin 3.3 L Urine Color Yellow Urine Appearance Clear Urine pH 5.0 Ur Specific [place] 1.025 Urine Protein Negative Urine Glucose (UA) Negative Urine Ketones Negative Urine Blood Negative Urine Nitrite Negative Urine Bilirubin Negative Urine Urobilinogen 4.0 e.u/dl H Ur Leukocyte Esterase Negative HIV 1&2 Antibody Screen HIV P24 Antigen Blood Type Antibody Screen 05/03/17 05/03/17 05/03/17 13:00 13:00 16:32 WBC RBC Hgb Hct MCV MCH MCHC RDW Plt Count MPV Neutrophils % Lymphocytes % Monocytes % Eosinophils % Basophils % INR PTT (Actin FS) Sodium Potassium Chloride Carbon Dioxide Anion Gap BUN Creatinine Creat Clearance w eGFR POC Glucometer Random Glucose Lactic Acid 3.1 H* 1.5 Calcium Phosphorus Magnesium Total Bilirubin AST ALT Alkaline Phosphatase Total Protein Albumin Urine Color Urine Appearance Urine pH Ur Specific [place] Urine Protein Urine Glucose (UA) Urine Ketones Urine Blood Urine Nitrite Urine Bilirubin Urine Urobilinogen Ur Leukocyte Esterase HIV 1&2 Antibody Screen HIV P24 Antigen Blood Type AB POSITIVE Antibody Screen Negative 05/03/17 05/03/17 05/04/17 19:18 21:57 06:00 WBC 9.8 D RBC 4.10 Hgb 12.7 D Hct 38.2 D MCV 93.0 MCH 30.9 MCHC 33.3 RDW 14.9 Plt Count 168 MPV 10.4 Neutrophils % 65.8 Lymphocytes % 14.5 D Monocytes % 18.0 H Eosinophils % 0.7 D Basophils % 1.0 INR 1.44 H PTT (Actin FS) 32.8 Sodium Potassium Chloride Carbon Dioxide Anion Gap BUN Creatinine Creat Clearance w eGFR POC Glucometer 141 Random Glucose Lactic Acid Calcium Phosphorus Magnesium Total Bilirubin AST ALT Alkaline Phosphatase Total Protein Albumin Urine Color Urine Appearance Urine pH Ur Specific [place] Urine Protein Urine Glucose (UA) Urine Ketones Urine Blood Urine Nitrite Urine Bilirubin Urine Urobilinogen Ur Leukocyte Esterase HIV 1&2 Antibody Screen HIV P24 Antigen Blood Type Antibody Screen 05/04/17 05/04/17 05/04/17 06:00 06:00 08:10 WBC RBC Hgb Hct MCV MCH MCHC RDW Plt Count MPV Neutrophils % Lymphocytes % Monocytes % Eosinophils % Basophils % INR 1.31 H PTT (Actin FS) Sodium 139 Potassium 3.7 Chloride 105 Carbon Dioxide 25 Anion Gap 9 BUN 9 D Creatinine 0.8 D Creat Clearance w eGFR > 60 POC Glucometer Random Glucose 113 H Lactic Acid Calcium 8.0 L Phosphorus 2.0 L Magnesium 2.2 Total Bilirubin 0.8 AST 13 L ALT 18 Alkaline Phosphatase 83 D Total Protein 6.6 Albumin 2.7 L Urine Color Urine Appearance Urine pH Ur Specific [place] Urine Protein Urine Glucose (UA) Urine Ketones Urine Blood Urine Nitrite Urine Bilirubin Urine Urobilinogen Ur Leukocyte Esterase HIV 1&2 Antibody Screen Negative HIV P24 Antigen Negative Blood Type Antibody Screen Physical Exam: NAD , AAOx3 HEENT: no neck stiffness. MMM CV: RRR. 2/6 SM at RUSB, LUSB . No JVD Lungs: R basilar crackles Ext : no edema or erythema Neuro : no facial droop, round equal reactive pupils. EOMI, nl facial sensation , tongue and uvula at mid line . strength 5/5 in upper and lower extremities proximally and distally . sensation to light touch nl. ASSESSMENT AND PLAN: 56 y/o lady with h/o DM ( diet controlled) , HTN, CAD, s/p MA, RA , gastric sleeve who presented to Hospital with FRIAS and fever x 4 days. She was found to have severe spesis . 1- Severe sepsis: Now after reviewing the CT scan of chest, PNA is the source of the sepsis . Given this, meningitis is not a concern now. FRIAS has resolved Will treat as HCAP as she is immunocompromised and works at [employer] and has severe sepsis - LP is not indicated. - cont meropenem and vanco for HCAP as allergic to cephalosporins and levaquin - check vanco level in am - follow cx - if spikes a fever again, will repeat cx - decrease rate of IVF - echo 2- R Lung mass, could be tumor or abscess - consult pulmonary - will d/w IR in am about best way to Bx - d/w patient 2- mild LEBRON : likely due to volume depletion and sepsis resolved 3- h/o HTN: Norvasc dose decreased due to sepsis - can nincrease to home dose if BP requires 4- h/o DM , last A1c 5.2 . diabetic diet dc BGMs as per pt wishes HLOC Visit type - Emergency Visit Emergency Visit: Yes ED Registration Date: 05/03/17 Care time: The patient presented to the Emergency Department on the above date and was hospitalized for further evaluation of their emergent condition. - New Patient This patient is new to me today: No - Critical Care Critical Care patient: No
[2017-05-04] MEDS ORDERED: NAPH,MB-DB/K PH,MBDB POWDER PACKET PO ONE (13:00)
--- NOTE | 2017-05-04 13:47 | EKG ---
Test Reason : Blood Pressure : / mmHG Vent. Rate : 088 BPM Atrial Rate : 088 BPM P-R Int : 142 ms QRS Dur : 082 ms QT Int : 366 ms P-R-T Axes : 033 -10 -09 degrees QTc Int : 442 ms NORMAL SINUS RHYTHM NORMAL ECG WHEN COMPARED WITH ECG OF 18-SEP-2011 17:56, NO SIGNIFICANT CHANGE WAS FOUND Confirmed by CORRIE GASTON MD ([id number]) on 05/04/2017 1:47:32 PM Referred By: Confirmed By:CORRIE GASTON MD
[2017-05-04] MEDS ORDERED: diphenhydrAMINE HCL 25 MG CAPSULE (FP) PO ONE (14:42)
[2017-05-05] MEDS ORDERED: diphenhydrAMINE HCL 25 MG CAPSULE (FP) PO PRN (01:43)
[2017-05-05] MEDS ORDERED: diphenhydrAMINE HCL 25 MG CAPSULE (FP) PO ONE ×2 (02:15→21:29)
[2017-05-05] MEDS: MEROPENEM 2 GM in SODIUM CHLORIDE 100 ML IVPB SCH ×3 (04:43→18:04)
[2017-05-05] MEDS: HEPARIN NA (PORCINE) 5,000 UNITS/ML 1ML VIAL SQ SCH ×3 (05:22→21:23)
[2017-05-05] MEDS: VANCOMYCIN 1,500 MG in DEXTROSE 5%-WATER - 500 ML IVPB SCH (08:01)
[2017-05-05 08:59] LABS: MAGNESIUM 2.1 mg/dL (1.8-2.4)
[2017-05-05 09:01] LABS: PHOSPHOROUS 2.6 mg/dL (2.5-4.9)
[2017-05-05] MEDS ORDERED: PT OWN MED DRAWER 7, Y5N ONE ×2 (10:14→17:13)
[2017-05-05] MEDS: METOPROLOL SUCCINATE 100 MG TAB.SR.24H (FP) PO SCH (10:22)
[2017-05-05] MEDS: predniSONE 5 MG TABLET (UD) PO SCH (10:22)
[2017-05-05] MEDS: amLODIPine BESYLATE 5 MG TABLET (FP) PO SCH (10:22)
[2017-05-05] MEDS: FOLIC ACID 1 MG TABLET (FP) PO SCH (10:22)
[2017-05-05] MEDS: ACETAMINOPHEN 325 MG TABLET (FP) PO PRN ×2 (10:28→21:35)
[2017-05-05] MEDS: SODIUM CHLORIDE 1,000 ML IV SCH ×2 (10:39→11:50)
--- NOTE | 2017-05-05 10:55 | CON.PULM ---
Consult Consult Specialty:: PULMONARY Referred by:: ROSHAN Reason for Consultation:: ABNORMAL CT CHEST - History of Present Illness Chief Complaint: COUGH/FEVER/PNEUMONIA History of Present Illness: 56-year-old woman with a significant past medical history of hypertension, hypercholesterolemia, myocardial infarction (2004;no stents), diabetes mellitus (diet controlled) and rheumatoid arthrtitis , OSAS, non-compliant with NPPV,who presents to the emergency department with a fever temperature of 103.2 noted. Patient states that her symptoms started approximately 4 days ago with a brief period of chest discomfort that spontaneously resolved. The next day, she developed an intermittent nonproductive cough, a sore throat, chills and generalized body aches. She reports taking with Nyquil without much help. She ultimately developed a headache, for which she took both Excedrin and Tylenol without relief. No lightheadedness, dizziness, nausea, vomiting. No urinary complaints. Denies hemoptysis. 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 No: AFIB Pulmonary: Yes: COPD, Sleep Apnea, Other (noncompliant with nippv) Gastrointestinal: No: Ascites Hepatobiliary: No: Cirrhosis Renal/: No: Renal Failure Reproductive: Yes: Postmenopausal ...: No Heme/Onc: No: Anemia Infectious Disease: No: AIDS Psych: No: Addictions Musculoskeletal: No: Bursitis Rheumatology: Yes: Rheumatoid Arthritis. No: Fibromyalgia ENT: No: Allergic Rhinitis Endocrine: Yes: Diabetes Mellitus - Past Surgical History Past Surgical History: Yes: Bariatric Surgery - Alcohol/Substance Use Hx Alcohol Use: No History of Substance Use: reports: None - Smoking History Smoking history: Former smoker Have you smoked in the past 12 months: No Aproximately how many cigarettes per day: 30 If you are a former smoker, when did you quit?: 2007 - Social History Place of : [facility] History of Recent Travel: No Home Medications - Allergies Allergies/Adverse Reactions: Allergies Allergy/AdvReac Type Severity Reaction Status Date / Time cephalexin monohydrate Allergy Rash Verified 05/03/17 12:11 [From Keflex] levofloxacin [From Levaquin] Allergy Rash Verified 05/03/17 18:56 - Home Medications Home Medications: Ambulatory Orders Amlodipine Besylate [Norvasc -] 10 mg PO DAILY 10/10/13 Folic Acid 1 mg PO DAILY 10/10/13 Methotrexate [Mexate -] 25 mg PO Q7D 10/10/13 Metoprolol Succinate 100 mg PO DAILY 10/10/13 Aspirin [ASA -] 81 mg PO DAILY 05/03/17 Omeprazole 40 mg PO DAILY 05/03/17 Prednisone 5 mg PO DAILY 05/03/17 Family Disease History - Family Disease History Family History: Unremarkable Review of Systems - Review of Systems Constitutional: reports: Chills, Fever, Lethargy, Malaise Eyes: reports: No Symptoms HENT: reports: Throat Pain Neck: reports: No Symptoms Cardiovascular: denies: Chest Pain Respiratory: reports: Cough, Snoring, SOB, SOB on Exertion. denies: Hemoptysis , Wheezing Gastrointestinal: denies: Abdominal Pain Genitourinary: denies: Burning Breasts: reports: No Symptoms Reported Musculoskeletal: reports: No Symptoms Integumentary: reports: No Symptoms Neurological: reports: Headache Endocrine: reports: No Symptoms Physical Exam Vital Sings: Vital Signs Temperature 98.8 F 05/05/17 06:00 Pulse Rate 72 05/05/17 06:00 Respiratory Rate 20 05/05/17 06:00 Blood Pressure 144/82 05/05/17 06:00 O2 Sat by Pulse Oximetry (%) 97 05/04/17 09:00 Constitutional: Yes: Calm Eyes: Yes: EOM Intact HENT: Yes: Normocephalic Neck: Yes: Trachea Midline Cardiovascular: Yes: Regular Rate and Rhythm Respiratory: Yes: Diminished Gastrointestinal: Yes: Normal Bowel Sounds, Abdomen, Obese Edema: No Labs: CBC, BMP 05/04/17 06:00 05/05/17 06:04 Imaging - Results Chest X-ray: Report Reviewed, Image Reviewed Cat Scan: Report Reviewed, Image Reviewed MRI: Report Reviewed, Image Reviewed Problem List - Problems (1) Elevated lactic acid level Code(s): R79.89 - OTHER SPECIFIED ABNORMAL FINDINGS OF BLOOD CHEMISTRY (2) Fever Code(s): R50.9 - FEVER, UNSPECIFIED Qualifiers: Fever type: unspecified Qualified Code(s): R50.9 - Fever, unspecified (3) Pneumonia Code(s): J18.9 - PNEUMONIA, UNSPECIFIED ORGANISM Qualifiers: Pneumonia type: due to unspecified organism Laterality: unspecified laterality Lung location: unspecified part of lung Qualified Code(s): J18.9 - Pneumonia, unspecified organism (4) Lung mass Code(s): R91.8 - OTHER NONSPECIFIC ABNORMAL FINDING OF LUNG FIELD (5) Acute rheumatoid arthritis Code(s): M06.9 - RHEUMATOID ARTHRITIS, UNSPECIFIED (6) ASHD (arteriosclerotic heart disease) Code(s): I25.10 - ATHSCL HEART DISEASE OF [place] CORONARY ARTERY W/O ANG PCTRS Assessment/Plan CABP BEING TREATED WITH ANTIBIOTICS WITH CLINICAL IMPROVEMENT ABNORMAL CT CHEST: PLEURAL BASED RIGHT LUNG BASE MASS NOTED RIGHT BASE INFILTRATE/COPD OSAS NON COMPLIANT WITH TREATMENT MULTIPLE CO-MORBIDITIES NOTED WOULD COMPLETE TREATMENT WITH ANTIBIOTICS/BRONCHODILATORS/SUPPLEMENTAL O2 I HAVE CALLED PATIENT'S PMD DR SEGURA ([phone]) FOR RESULTS OF OLD RADIOGRAPHS/CT'S, AWAITING RETURN CALL NEEDS FOLLOW UP CT CHEST WITHIN ONE MONTH OUTPATIENT TO DOCUMENT RESOLUTION MAY ULTIMATELY NEED PET SCAN AND DIAGNOSTIC PROCEDURE IF DENSITY REMAINS UNCHANGED. ENCOURAGE COMPLIANCE WITH NIPPV FOR HER OSAS THANK YOU FOR THIS CONSULT Randy JOHN MD
--- NOTE | 2017-05-05 15:42 | PN ---
Progress Note, Physician History of Present Illness: patient feeling much better no new issues no fever pul on case - Current Medication List Current Medications: Active Medications Acetaminophen (Tylenol -) 650 mg PO Q6H PRN PRN Reason: FEVER OR PAIN Last Admin: 05/05/17 10:28 Dose: 650 mg Amlodipine Besylate (Norvasc -) 5 mg PO DAILY [facility] Last Admin: 05/05/17 10:22 Dose: 5 mg Folic Acid (Folic Acid -) 1 mg PO DAILY [facility] Last Admin: 05/05/17 10:22 Dose: 1 mg Heparin Sodium (Porcine) (Heparin -) 5,000 unit SQ TID [facility] Last Admin: 05/05/17 13:05 Dose: Not Given Meropenem 2 gm/ Sodium (Chloride) 100 mls @ 100 mls/hr IVPB Q8H-IV VANESA PRN Reason: Protocol Last Admin: 05/05/17 10:22 Dose: 100 mls/hr Sodium Chloride (Normal Saline -) 1,000 mls @ 75 mls/hr IV ASDIR [facility] Last Admin: 05/05/17 11:50 Dose: 75 mls/hr Metoprolol Succinate (Toprol Xl -) 100 mg PO DAILY [facility] Last Admin: 05/05/17 10:22 Dose: 100 mg Prednisone (Deltasone -) 5 mg PO DAILY [facility] Last Admin: 05/05/17 10:22 Dose: 5 mg - Objective Vital Signs: Vital Signs Temperature 98.7 F 05/05/17 14:33 Pulse Rate 78 05/05/17 14:33 Respiratory Rate 16 05/05/17 14:33 Blood Pressure 139/90 05/05/17 14:33 O2 Sat by Pulse Oximetry (%) 99 05/05/17 09:00 Constitutional: Yes: No Distress, Calm Eyes: Yes: Conjunctiva Clear Neck: Yes: Supple Cardiovascular: Yes: Regular Rate and Rhythm Respiratory: Yes: Regular, Poor Air Entry, Rhonchi Gastrointestinal: Yes: Normal Bowel Sounds, Soft Musculoskeletal: Yes: WNL Extremities: Yes: WNL Neurological: Yes: Alert, Oriented Psychiatric: Yes: Alert, Oriented Labs: CBC, BMP 05/04/17 06:00 05/05/17 06:04 INR, PTT INR 1.31 (0.82-1.09) H 05/04/17 08:10 Assessment/Plan 56yo F with a PMHx of HTN, HLD, [place] hx (2004), NIDDM, Rheumatoid Arthritis on half-way Prednisone and methotrexate sepsis pneumonia Rheumatoid Arthritis HTn HLD DM fever plan continue current abx continue to monitor plan to be made about her ct scan finding pul on case
--- NOTE | 2017-05-05 17:34 | PN ---
Teaching Attending Note Name of Resident: Marty Ceja ATTENDING PHYSICIAN STATEMENT I saw and evaluated the patient. I reviewed the resident's note and discussed the case with the resident. I agree with the resident's findings and plan as documented. SUBJECTIVE: Patient feeling better and denies any SOB or fever. OBJECTIVE: Vital Signs Temperature 98.9 F 05/05/17 16:10 Pulse Rate 74 05/05/17 16:10 Respiratory Rate 20 05/05/17 16:10 Blood Pressure 124/76 05/05/17 16:10 O2 Sat by Pulse Oximetry (%) 99 05/05/17 09:00 GEN: A&Ox3 , afebrile, in NAD HEENT: PERRLA, EOMI, normal nasopharyngeal mucosa, MMM CVS: RRR, S1,S2 Lungs: RLQ slight crepitation otherwise no wheezing and BS clear Abd: Soft, NT, BS+ Ext: 2+ pulses, nl ROM Neuro: CN2-12 no focal deficit. ASSESSMENT AND PLAN: HAP [id number] Case discussed with ID and recommended that in light of possible masslike lung density to continue IV antibiotics for 3 days and re-evaluate possible mass. Nebulizations q6h prn
--- NOTE | 2017-05-05 18:24 | PN ---
Physical Exam: SUBJECTIVE: Patient seen and examined this AM. No CP, no SOB, no fevers, no chills OBJECTIVE: Vital Signs Period Temp Pulse Resp BP Sys/Coker Pulse Ox Last 24 Hr 98.7 F-98.9 F 72-78 16-20 124-144/76-90 99 GENERAL: Awake, alert, and fully oriented, looks better than admissino HEENT: PERRLA, EOMi, No signs of pharyngeal erythema, exudate, lymphadenopathy, sores. NECK: Normal range of motion, no neck stiffness, supple without lymphadenopathy LUNGS: Breath sounds equal, clear to auscultation bilaterally, bilateral basilar cracklse HEART: Regular rate and rhythm, normal S1 and S2, with +2/6 systolic murmur ABDOMEN: Soft, nontender, not distended, hypoactive bowel sounds, no guarding, no rebound, no masses. MUSCULOSKELETAL: Normal range of motion at all joints. No bony deformities or tenderness. No CVA tenderness. UPPER EXTREMITIES: 2+ pulses, warm, well-perfused. No cyanosis. No clubbing. No peripheral edema. LOWER EXTREMITIES: 2+ pulses, warm, well-perfused. No calf tenderness. No peripheral edema. NEUROLOGICAL: Cranial nerves II-XII intact. Sensation was equal and intact in face and body bilaterally, muscle strength was 5/5 in all extremities, reflexes were 1+. Pt was oriented x3. Normal speech. Normal gait. Laboratory Results - last 24 hr 05/05/17 05/05/17 06:04 07:30 Potassium 3.6 Phosphorus 2.6 D Magnesium 2.1 Vancomycin Pre-Dose 19.197 H* Active Medications Generic Name Dose Route Start Last Admin Trade Name Tina PRN Reason Stop Dose Admin Acetaminophen 650 mg 05/04/17 12:50 05/05/17 10:28 Tylenol - PO 650 mg Q6H PRN Administration FEVER OR PAIN Amlodipine Besylate 5 mg 05/04/17 10:00 05/05/17 10:22 Norvasc - PO 5 mg DAILY VANESA Administration Folic Acid 1 mg 05/04/17 10:00 05/05/17 10:22 Folic Acid - PO 1 mg DAILY VANESA Administration Heparin Sodium (Porcine) 5,000 unit 05/03/17 22:00 05/05/17 13:05 Heparin - SQ Not Given TID VNAESA Meropenem 2 gm/ Sodium 100 mls @ 100 mls/hr 05/03/17 19:45 05/05/17 18:04 Chloride IVPB 100 mls/hr Q8H-IV VANESA Administration Protocol Sodium Chloride 1,000 mls @ 75 mls/hr 05/04/17 07:57 05/05/17 11:50 Normal Saline - IV 75 mls/hr ASDIR VANESA Administration Metoprolol Succinate 100 mg 05/04/17 10:00 05/05/17 10:22 Toprol Xl - PO 100 mg DAILY VANESA Administration Prednisone 5 mg 05/04/17 10:00 05/05/17 10:22 Deltasone - PO 5 mg DAILY VANESA Administration ASSESSMENT/PLAN: Patient is a 56yo F with a PMHx of HTN, HLD, [place] hx (2004), NIDDM, Rheumatoid Arthritis on alf Prednisone who presented in severe sepsis likely from HCAP # Severe Sepsis - resolved - Unlikely from Meningitis no more headache, soft neck, pt refused spinal tap , CT neg, MRI no abscess - Likely from HCAP after CT chest shows infiltrative consolidation RLL > LLL - treat with Meropenem 2g IV Q8 + Vancomycin 1.5g IV Q12 to be dosed by pharmacy ( allergy to cephalosporin + levaquin) - d/c'd amp - Blood cx prelim shows no growth, urine cx contaminated, flu antigen negative, HIV neg - ID recommends 3 more days of antibiotics (until 05/07) in leiu of lung mass found on CT - Echo pending #R lung Mass - Detected on chest CT, with air pockets, suggestive of consolidation, less likely mass - Pulmonology is waiting to here from PMD about old radiographs, recommends f/u 1mo as outpatient, possible PET scan as o/p, biopsy only if not resolving or new mass or growing mass # Hx of Rheumatoid Arthritis - Will hold Methotrexate in lieu of sepsis - Continue Prednisone 5mg PO QD # Hx of HTN - Started half home dose of Amlodipine (5mg QD) in leiu of sepsis - Continue Metoprolol 100mg QD - Monitor BPs # Hx of HLD - Lipid Panel, patient was on statin but stopped taking due to myalgia # Hx of DM2 - A1C (prior 5.2, new pending), pt not on home meds - Patient refuses BGMs with SSI - Will continue to monitor glucose # FEN - Fluids: IV NS 125mL/hr ? IV NS 75mL/hr - Electrolytes: Monitor - Nutrition: Diabetic diet # Prophylaxis - DVT: Heparin SQ and SCDs - GI: Protonix - Deconditioning: PT consult Visit type - Emergency Visit Emergency Visit: No - New Patient This patient is new to me today: No - Critical Care Critical Care patient: No
[2017-05-06] MEDS ORDERED: PT OWN MED DRAWER 7, Y5N ONE (01:41)
[2017-05-06] MEDS: MEROPENEM 2 GM in SODIUM CHLORIDE 100 ML IVPB SCH ×3 (01:45→17:50)
[2017-05-06] MEDS: ACETAMINOPHEN 325 MG TABLET (FP) PO PRN ×2 (04:23→18:11)
[2017-05-06] MEDS: SODIUM CHLORIDE 1,000 ML IV SCH ×2 (04:26→10:48)
[2017-05-06] MEDS: HEPARIN NA (PORCINE) 5,000 UNITS/ML 1ML VIAL SQ SCH ×3 (06:31→21:28)
--- NOTE | 2017-05-06 08:03 | PN ---
Physical Exam: SUBJECTIVE: Patient seen and examined this AM. No CP, no SOB, no fevers, no chills. The patient states that she is coughing bringing up some sputum. OBJECTIVE: Vital Signs Period Temp Pulse Resp BP Sys/Coker Pulse Ox Last 24 Hr 98.7 F-98.9 F 74-78 16-20 104-139/53-90 99-100 GENERAL: Patient was comfortable, lying in bed. Awake, alert, and fully oriented , in no acute distress EYES: PERRLA, EOMi, Postsurgical changes noted in L eye. EARS, NOSE, THROAT: Ears normal, nares patent, oropharynx clear without exudates. Moist mucous membranes. NECK: Normal range of motion, supple without lymphadenopathy, JVD, or masses. LUNGS: Coarse breath sounds in lungs bilaterally HEART: Bradycardic, regular rhythm, normal S1 and S2, 2/6 stsolic murmur ABDOMEN: Soft, nontender, not distended, normoactive bowel sounds, no guarding, no rebound, no masses. MUSCULOSKELETAL: Normal range of motion at all joints. No bony deformities or tenderness. No CVA tenderness. UPPER EXTREMITIES: 2+ pulses, warm, well- perfused. No cyanosis. No clubbing. No peripheral edema. LOWER EXTREMITIES: 2+ pulses, warm, well- perfused. No calf tenderness. No peripheral edema. NEUROLOGICAL: Mostly uncooperative for the neurological exam. Grossly the cranial nerves are II-XII intact. Laboratory Results - last 24 hr 05/05/17 05/05/17 06:04 07:30 Potassium 3.6 Phosphorus 2.6 D Magnesium 2.1 Vancomycin Pre-Dose 19.197 H* Active Medications Generic Name Dose Route Start Last Admin Trade Name Freq PRN Reason Stop Dose Admin Acetaminophen 650 mg 05/04/17 12:50 05/06/17 04:23 Tylenol - PO 650 mg Q6H PRN Administration FEVER OR PAIN Amlodipine Besylate 5 mg 05/04/17 10:00 05/05/17 10:22 Norvasc - PO 5 mg DAILY VANESA Administration Folic Acid 1 mg 05/04/17 10:00 05/05/17 10:22 Folic Acid - PO 1 mg DAILY VANESA Administration Heparin Sodium (Porcine) 5,000 unit 05/03/17 22:00 05/06/17 06:31 Heparin - SQ Not Given TID VANESA Meropenem 2 gm/ Sodium 100 mls @ 100 mls/hr 05/03/17 19:45 05/06/17 01:45 Chloride IVPB 100 mls/hr Q8H-IV VANESA Administration Protocol Sodium Chloride 1,000 mls @ 75 mls/hr 05/04/17 07:57 05/06/17 04:26 Normal Saline - IV 75 mls/hr ASDIR VANESA Administration Metoprolol Succinate 100 mg 05/04/17 10:00 05/05/17 10:22 Toprol Xl - PO 100 mg DAILY VANESA Administration Prednisone 5 mg 05/04/17 10:00 05/05/17 10:22 Deltasone - PO 5 mg DAILY VANESA Administration ASSESSMENT/PLAN: Patient is a 56yo F with a PMHx of HTN, HLD, [place] hx (2004), NIDDM, Rheumatoid Arthritis on long-term Prednisone who presented in severe sepsis likely from HCAP # Severe Sepsis - resolved - Unlikely from Meningitis no more headache, soft neck, pt refused spinal tap , CT neg, MRI no abscess - Likely from HCAP after CT chest shows infiltrative consolidation RLL > LLL - treat with Meropenem 2g IV Q8 + Vancomycin 1.5g IV Q12 to be dosed by pharmacy ( allergy to cephalosporin + levaquin) - d/c'd amp - Blood cx prelim shows no growth, urine cx contaminated, flu antigen negative, HIV neg - ID recommends 1 more day of antibiotics (until 05/07), will f/u with Bobde about PO antibiotics at discharge - Echo normal #R lung Mass - Detected on chest CT, with air pockets, suggestive of consolidation, less likely mass - Pulmonology recommends outpt f/u of chest imaging to ensure resolution of lung infiltrates/mass, if remains after 6-8 weeks will need PET scan and CT guided needle biopsy # Hx of Rheumatoid Arthritis - Will hold Methotrexate in lieu of sepsis - Continue Prednisone 5mg PO QD # Hx of HTN - Started half home dose of Amlodipine (5mg QD) in leiu of sepsis - Continue Metoprolol 100mg QD - Monitor BPs # Hx of HLD - Lipid Panel shows high LDL, but patient historically did not tolerate statin due to myalgia # Hx of DM2 - Pt not on home meds - Patient refuses BGMs with SSI but glucose is low 100s - Will continue to monitor glucose # FEN - Fluids: IV NS 125mL/hr ? IV NS 75mL/hr - Electrolytes: Monitor - Nutrition: Diabetic diet # Prophylaxis - DVT: Heparin SQ and SCDs - GI: Protonix - Deconditioning: PT consult Visit type - Emergency Visit Emergency Visit: No - New Patient This patient is new to me today: No - Critical Care Critical Care patient: No - Discharge Referral Referred to [facility] Med P.C.: No
[2017-05-06 08:10] LABS: MCH 30.5 pg (25.7-33.7); MEAN CELL VOLUME 92.4 fl (80-96); MEAN PLT VOLUME 9.3 fl (7.5-11.1); PLATELET COUNT 233 K/MM3 (134-434); RDW 14.8 % (11.6-15.6); WHITE BLOOD COUNT 10.9 K/mm3 (4.0-10.0)
[2017-05-06 08:15] LABS: CHOLESTEROL 177 mg/dL (50-200); LDL CHOLESTEROL (ONLY SJRH) 116 mg/dL (5-100)
--- NOTE | 2017-05-06 10:06 | PN ---
Progress Note (short form) - Note Progress Note: PULMONARY Feels much improved. +cough clearing now with yellow sputum. No fevers or chills. Last Vital Signs Temp Pulse Resp BP Pulse Ox 98.8 F 78 20 104/53 100 05/06/17 06:00 05/06/17 06:00 05/06/17 06:00 05/06/17 06:00 05/05/17 21:00 Gen: NAD at rest Heart: RRR Lung: decreased breath sounds at the bases Abd: soft, nontender Ext: no edema CBC, BMP 05/06/17 06:55 05/05/17 06:04 Active Medications Acetaminophen (Tylenol -) 650 mg PO Q6H PRN PRN Reason: FEVER OR PAIN Last Admin: 05/06/17 04:23 Dose: 650 mg Amlodipine Besylate (Norvasc -) 5 mg PO DAILY [facility] Last Admin: 05/05/17 10:22 Dose: 5 mg Folic Acid (Folic Acid -) 1 mg PO DAILY [facility] Last Admin: 05/05/17 10:22 Dose: 1 mg Heparin Sodium (Porcine) (Heparin -) 5,000 unit SQ TID [facility] Last Admin: 05/06/17 06:31 Dose: Not Given Meropenem 2 gm/ Sodium (Chloride) 100 mls @ 100 mls/hr IVPB Q8H-IV VANESA PRN Reason: Protocol Last Admin: 05/06/17 01:45 Dose: 100 mls/hr Sodium Chloride (Normal Saline -) 1,000 mls @ 75 mls/hr IV ASDIR [facility] Last Admin: 05/06/17 04:26 Dose: 75 mls/hr Metoprolol Succinate (Toprol Xl -) 100 mg PO DAILY [facility] Last Admin: 05/05/17 10:22 Dose: 100 mg Prednisone (Deltasone -) 5 mg PO DAILY [facility] Last Admin: 05/05/17 10:22 Dose: 5 mg A/P Pneumonia r/o Lung Mass HTN DM Rheumatoid Arthritis - continue antibiotics - f/u cultures - will need outpt f/u of chest imaging to ensure resolution of lung infiltrates /mass, if remains after 6-8 weeks will need PET scan and CT guided needle biopsy - DVT prophylaxis
[2017-05-06] MEDS: predniSONE 5 MG TABLET (UD) PO SCH (10:47)
[2017-05-06] MEDS: amLODIPine BESYLATE 5 MG TABLET (FP) PO SCH (10:47)
[2017-05-06] MEDS: FOLIC ACID 1 MG TABLET (FP) PO SCH (10:47)
[2017-05-06] MEDS: METOPROLOL SUCCINATE 100 MG TAB.SR.24H (FP) PO SCH (10:47)
--- NOTE | 2017-05-06 14:53 | PN ---
Teaching Attending Note Name of Resident: Marty Ceja ATTENDING PHYSICIAN STATEMENT I saw and evaluated the patient. I reviewed the resident's note and discussed the case with the resident. I agree with the resident's findings and plan as documented. SUBJECTIVE:productive cough has improved. continues to have green sputum. denies CP, SOB,fever, chills, N/V/C/D OBJECTIVE: Last Vital Signs Temp Pulse Resp BP Pulse Ox 98.8 F 78 20 104/53 100 05/06/17 06:00 05/06/17 06:00 05/06/17 06:00 05/06/17 06:00 05/05/17 21:00 General NAD CV S1 S2 RRR no murmur/rub/gallop Lungs CTA B/L no wheezing. decreased breath sounds at bases. ASSESSMENT AND PLAN: 56 y/o lady with h/o DM ( diet controlled) , HTN, CAD, s/p [place], RA , gastric sleeve who presented to Hospital with FRIAS and fever x 4 days. She was found to have severe sepsis . 1. Severe sepsis due to HCAP- on meropenem day 4, plan to complete 5 day course of IV abx with transition to po after wards per ID. cont inhalers. pulmonary on board. 2. R Lung mass- will need repeat CT in 6-8 weeks to re-assess. may require bx. informed pt concern for malignancy if persists due to tobacco history. 3. LEBRON- likely due to volume depletion and sepsis- resolved 4. HTN- controlled. 5. d/c planning for the morning pending ID recommendations
[2017-05-06] MEDS ORDERED: diphenhydrAMINE HCL 25 MG CAPSULE (FP) PO ONE ×2 (16:53→22:30)
[2017-05-07] MEDS: SODIUM CHLORIDE 1,000 ML IV SCH ×2 (01:25→12:58)
[2017-05-07] MEDS: MEROPENEM 2 GM in SODIUM CHLORIDE 100 ML IVPB SCH ×2 (01:26→10:23)
[2017-05-07] MEDS: HEPARIN NA (PORCINE) 5,000 UNITS/ML 1ML VIAL SQ SCH (05:38)
[2017-05-07 08:17] LABS: MCH 30.3 pg (25.7-33.7); MCHC 32.7 g/dl (32.0-36.0); MEAN CELL VOLUME 92.8 fl (80-96); MEAN PLT VOLUME 9.3 fl (7.5-11.1); PLATELET COUNT 252 K/MM3 (134-434); RDW 15.3 % (11.6-15.6); WHITE BLOOD COUNT 10.8 K/mm3 (4.0-10.0)
--- NOTE | 2017-05-07 09:36 | PN ---
Teaching Attending Note Name of Resident: Marty Ceja ATTENDING PHYSICIAN STATEMENT I saw and evaluated the patient. I reviewed the resident's note and discussed the case with the resident. I agree with the resident's findings and plan as documented. SUBJECTIVE: Patient is comfortable with no acute distress. OBJECTIVE: Vital Signs Temperature 98.5 F 05/07/17 06:00 Pulse Rate 63 05/07/17 06:00 Respiratory Rate 20 05/07/17 06:00 Blood Pressure 134/69 05/07/17 06:00 O2 Sat by Pulse Oximetry (%) 100 05/05/17 21:00 CBCD WBC 10.8 K/mm3 (4.0-10.0) H 05/07/17 06:30 RBC 3.84 M/mm3 (3.60-5.2) 05/07/17 06:30 Hgb 11.6 GM/dL (10.7-15.3) 05/07/17 06:30 Hct 35.6 % (32.4-45.2) 05/07/17 06:30 MCV 92.8 fl (80-96) 05/07/17 06:30 MCHC 32.7 g/dl (32.0-36.0) 05/07/17 06:30 RDW 15.3 % (11.6-15.6) 05/07/17 06:30 Plt Count 252 K/MM3 (134-434) 05/07/17 06:30 MPV 9.3 fl (7.5-11.1) 05/07/17 06:30 CMP Sodium 139 mmol/L (136-145) 05/04/17 06:00 Potassium 3.6 mmol/L (3.5-5.1) 05/05/17 06:04 Chloride 105 mmol/L (98-107) 05/04/17 06:00 Carbon Dioxide 25 mmol/L (21-32) 05/04/17 06:00 Anion Gap 9 (8-16) 05/04/17 06:00 BUN 9 mg/dL (7-18) D 05/04/17 06:00 Creatinine 0.8 mg/dL (0.55-1.02) D 05/04/17 06:00 Creat Clearance w eGFR > 60 (>60) 05/04/17 06:00 Random Glucose 113 mg/dL (74-106) H 05/04/17 06:00 Calcium 8.0 mg/dL (8.5-10.1) L 05/04/17 06:00 Total Bilirubin 0.8 mg/dL (0.2-1.0) 05/04/17 06:00 AST 13 U/L (15-37) L 05/04/17 06:00 ALT 18 U/L (12-78) 05/04/17 06:00 Alkaline Phosphatase 83 U/L (45-117) D 05/04/17 06:00 Total Protein 6.6 g/dl (6.4-8.2) 05/04/17 06:00 Albumin 2.7 g/dl (3.4-5.0) L 05/04/17 06:00 Current Medications Generic Name Dose Route Start Last Admin Trade Name Freq PRN Reason Stop Dose Admin Acetaminophen 650 mg 05/04/17 12:50 05/06/17 18:11 Tylenol - PO 650 mg Q6H PRN Administration FEVER OR PAIN Amlodipine Besylate 5 mg 05/04/17 10:00 05/06/17 10:47 Norvasc - PO 5 mg DAILY VANESA Administration Folic Acid 1 mg 05/04/17 10:00 05/06/17 10:47 Folic Acid - PO 1 mg DAILY VANESA Administration Heparin Sodium (Porcine) 5,000 unit 05/03/17 22:00 05/07/17 05:38 Heparin - SQ Not Given TID VANESA Meropenem 2 gm/ Sodium 100 mls @ 100 mls/hr 05/03/17 19:45 05/07/17 01:26 Chloride IVPB 100 mls/hr Q8H-IV VANESA Administration Protocol Sodium Chloride 1,000 mls @ 75 mls/hr 05/04/17 07:57 05/07/17 01:25 Normal Saline - IV 75 mls/hr ASDIR VANESA Administration Metoprolol Succinate 100 mg 05/04/17 10:00 05/06/17 10:47 Toprol Xl - PO 100 mg DAILY VANESA Administration Prednisone 5 mg 05/04/17 10:00 05/06/17 10:47 Deltasone - PO 5 mg DAILY VANESA Administration Home Medications Medication Instructions Recorded Amlodipine Besylate [Norvasc -] 10 mg PO DAILY 10/10/13 Folic Acid 1 mg PO DAILY 10/10/13 Methotrexate [Mexate -] 25 mg PO Q7D 10/10/13 Metoprolol Succinate 100 mg PO DAILY 10/10/13 Aspirin [ASA -] 81 mg PO DAILY 05/03/17 Omeprazole 40 mg PO DAILY 05/03/17 Prednisone 5 mg PO DAILY 05/03/17 PE: as per resident's note ASSESSMENT AND PLAN: 56 y/o lady with h/o DM ( diet controlled) , HTN, CAD, s/p [place], RA , gastric sleeve who presented to Hospital with FRIAS and fever x 4 days. She was found to have severe sepsis . # s/p severe sepsis due to HCAP- on meropenem day 5, will discharge the patient home with oral clindamycin as per ID 5 more days. # Lung mass- will need repeat CT in 6-8 weeks to re-assess. may require bx. informed pt concern for malignancy if persists due to tobacco history. # LEBRON- improved # HTN- controlled. # RA hx continue meds as per Procurement Agent will discharge patient home.
--- NOTE | 2017-05-07 10:09 | PN ---
Progress Note, Physician History of Present Illness: patient doing much better 'no complaints - Current Medication List Current Medications: Active Medications Acetaminophen (Tylenol -) 650 mg PO Q6H PRN PRN Reason: FEVER OR PAIN Last Admin: 05/06/17 18:11 Dose: 650 mg Amlodipine Besylate (Norvasc -) 5 mg PO DAILY [facility] Last Admin: 05/06/17 10:47 Dose: 5 mg Folic Acid (Folic Acid -) 1 mg PO DAILY [facility] Last Admin: 05/06/17 10:47 Dose: 1 mg Heparin Sodium (Porcine) (Heparin -) 5,000 unit SQ TID [facility] Last Admin: 05/07/17 05:38 Dose: Not Given Meropenem 2 gm/ Sodium (Chloride) 100 mls @ 100 mls/hr IVPB Q8H-IV VANESA PRN Reason: Protocol Last Admin: 05/07/17 01:26 Dose: 100 mls/hr Sodium Chloride (Normal Saline -) 1,000 mls @ 75 mls/hr IV ASDIR [facility] Last Admin: 05/07/17 01:25 Dose: 75 mls/hr Metoprolol Succinate (Toprol Xl -) 100 mg PO DAILY [facility] Last Admin: 05/06/17 10:47 Dose: 100 mg Prednisone (Deltasone -) 5 mg PO DAILY [facility] Last Admin: 05/06/17 10:47 Dose: 5 mg - Objective Vital Signs: Vital Signs Temperature 98.5 F 05/07/17 06:00 Pulse Rate 63 05/07/17 06:00 Respiratory Rate 20 05/07/17 06:00 Blood Pressure 134/69 05/07/17 06:00 O2 Sat by Pulse Oximetry (%) 100 05/05/17 21:00 Constitutional: Yes: No Distress, Calm, Obese Cardiovascular: Yes: Regular Rate and Rhythm Respiratory: Yes: Regular, Poor Air Entry Gastrointestinal: Yes: Normal Bowel Sounds, Soft Musculoskeletal: Yes: WNL Extremities: Yes: WNL Neurological: Yes: Alert, Oriented Psychiatric: Yes: Alert, Oriented Labs: CBC, BMP 05/07/17 06:30 05/05/17 06:04 INR, PTT INR 1.31 (0.82-1.09) H 05/04/17 08:10 Assessment/Plan 56yo F with a PMHx of HTN, HLD, [place] hx (2004), NIDDM, Rheumatoid Arthritis on group home Prednisone and methotrexate sepsis pneumonia Rheumatoid Arthritis HTn HLD DM fever plan continue current abx continue to monitor will switch to oral abx after patient gets tomorrow morning dose will need abx for couple of day then she will need work up in 6 to 8 weeks
[2017-05-07] MEDS: METOPROLOL SUCCINATE 100 MG TAB.SR.24H (FP) PO SCH (10:23)
[2017-05-07] MEDS: FOLIC ACID 1 MG TABLET (FP) PO SCH (10:23)
[2017-05-07] MEDS: predniSONE 5 MG TABLET (UD) PO SCH (10:23)
[2017-05-07] MEDS: amLODIPine BESYLATE 5 MG TABLET (FP) PO SCH (10:23)
--- NOTE | 2017-05-07 11:23 | PN ---
Progress Note (short form) - Note Progress Note: PULMONARY VSS ANICTERIC CHEST CLEAR S1S2 BS+ OBESE LESS LOWER EXT EDEMA LABS/MEDS/NOTES/IMAGING REVIEWED CABP TREATED WITH ANTIBIOTICS WITH CLINICAL IMPROVEMENT ABNORMAL CT CHEST: PLEURAL BASED RIGHT LUNG BASE MASS NOTED RIGHT BASE INFILTRATE/COPD OSAS NON COMPLIANT WITH TREATMENT MULTIPLE CO-MORBIDITIES NOTED COMPLETED TREATMENT WITH ANTIBIOTICS/BRONCHODILATORS NEEDS FOLLOW UP CT CHEST WITHIN ONE MONTH OUTPATIENT TO DOCUMENT RESOLUTION MAY ULTIMATELY NEED PET SCAN AND DIAGNOSTIC PROCEDURE IF DENSITY REMAINS UNCHANGED. ENCOURAGE COMPLIANCE WITH NIPPV FOR HER OSAS Randy JOHN MD Problem List - Problems (1) Pneumonia Code(s): J18.9 - PNEUMONIA, UNSPECIFIED ORGANISM Qualifiers: Pneumonia type: due to unspecified organism Laterality: unspecified laterality Lung location: unspecified part of lung Qualified Code(s): J18.9 - Pneumonia, unspecified organism (2) Lung mass Code(s): R91.8 - OTHER NONSPECIFIC ABNORMAL FINDING OF LUNG FIELD (3) Acute rheumatoid arthritis Code(s): M06.9 - RHEUMATOID ARTHRITIS, UNSPECIFIED (4) ASHD (arteriosclerotic heart disease) Code(s): I25.10 - ATHSCL HEART DISEASE OF [place] CORONARY ARTERY W/O ANG PCTRS
[2017-05-07] MEDS: ACETAMINOPHEN 325 MG TABLET (FP) PO PRN (11:40)
[2017-05-07] MEDS ORDERED: CLINDAMYCIN HCL 150 MG CAPSULE (FP) PO SCH ×2 (11:45→14:00)
[2017-05-07 11:58] VITALS: BP 128/76; PULSE 76; TEMP 98.7
--- NOTE | 2017-05-07 16:00 | DS ---
Physical Exam: SUBJECTIVE: Patient seen and examined this AM. Without complaints, CP, SOB, fevers, chills. OBJECTIVE: Vital Signs Period Temp Pulse Resp BP Sys/Coker Pulse Ox Last 24 Hr 98.5 F-98.9 F 63-76 18-20 128-144/65-84 97 PHYSICAL EXAM GENERAL: Patient was comfortable, lying in bed. Awake, alert, and fully oriented , in no acute distress, still coughing. EYES: PERRLA, EOMi, Postsurgical changes noted in L eye. EARS, NOSE, THROAT: Ears normal, nares patent, oropharynx clear without exudates. Moist mucous membranes. NECK: Normal range of motion, supple without lymphadenopathy, JVD, or masses. LUNGS: Lung sounds are clear in upper and middle lung lópez, mild crackles bilaterally HEART: Bradycardic, regular rhythm, normal S1 and S2, 2/6 systolic murmur ABDOMEN: Soft, nontender, not distended, normoactive bowel sounds, no guarding, no rebound, no masses. MUSCULOSKELETAL: Normal range of motion at all joints. No bony deformities or tenderness. No CVA tenderness. UPPER EXTREMITIES: 2+ pulses, warm, well- perfused. No cyanosis. No clubbing. No peripheral edema. LOWER EXTREMITIES: 2+ pulses, warm, well- perfused. No calf tenderness. No peripheral edema. NEUROLOGICAL: Mostly uncooperative for the neurological exam. Grossly the cranial nerves are II-XII intact. LABS Laboratory Results - last 24 hr 05/07/17 06:30 WBC 10.8 H RBC 3.84 Hgb 11.6 Hct 35.6 MCV 92.8 MCH 30.3 MCHC 32.7 RDW 15.3 Plt Count 252 MPV 9.3 HOSPITAL COURSE: Date of Admission:05/03/17 Date of Discharge: 05/07/17 # Severe Sepsis - resolved - The patient first presented with signs of sepsis and a new onset cough. A chest CT was ordered which showed infiltrative consolidation RLL > LLL. 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 She was treated with Meropenem 2g IV Q8 for 5 days and 3 doses of Vancomycin. Blood cultures show no growth, flu antigen was negative, HIV was negative. The patient improved clinically throughout the hospitalization. Infectious Disease physicians (Dr. Solis) saw the patient this visit and recommended outpatient antibiotic Clindamycin 300mg Q8 x 5 more days, since the patient is allergic to cephalosporins and levofloxacin. # Right lung Mass - On the chest CT, there was a focal pleural-based mass-like density in the R lung base, medially with small air pockets suggestive of consolidation and less likely a mass. However, a follow-up CT scan of the chest is recommended to assess for change an to rule out any underlying mass/pathology. If it remains after 6=8 weeks, the patient will need a PET scan and possible CT guided needle biopsy. # Other - Hx of Rheumatoid Arthritis - we held Methotrexate in lieu of her sepsis, continue prednisone 5mg PO QD - Hx of HTN - we started the patient on half of her home dose of Amlodipine in lieu of sepsis, and we continued her metoprolol 100mg QD - Hx of HLD - the patient's lipid panel showed high LDL, but the patient historically does not tolerate statins due to her myalgia The patient was made aware of the hospital course and plan. Minutes to complete discharge: 55 <Marty Ceja - Last Filed: 05/07/17 16:18> Physical Exam: SUBJECTIVE: Patient seen and examined OBJECTIVE: PHYSICAL EXAM GENERAL: The patient is awake, alert, and fully oriented, in no acute distress. HEAD: Normal with no signs of trauma. EYES: PERRL, extraocular movements intact, sclera anicteric, conjunctiva clear. ENT: Ears normal, nares patent, oropharynx clear without exudates, moist mucous membranes. NECK: Trachea midline, full range of motion, supple. LUNGS: Breath sounds equal, clear to auscultation bilaterally, no wheezes, no crackles, no accessory muscle use. HEART: Regular rate and rhythm, S1, S2 without murmur, rub or gallop. ABDOMEN: Soft, nontender, nondistended, normoactive bowel sounds, no guarding, no rebound, no hepatosplenomegaly, no masses. EXTREMITIES: 2+ pulses, warm, well-perfused, no edema. NEUROLOGICAL: Cranial nerves II through XII grossly intact. Normal speech, gait not observed. PSYCH: Normal mood, normal affect. SKIN: Warm, dry, normal turgor, no rashes or lesions noted. LABS HOSPITAL COURSE: Date of Admission:05/03/17 Date of Discharge: 05/08/17 Patient does not tolerate Statins, further management will be assessed as an outpatient by her primary care doctor. <Tarsha Hernandez - Last Filed: 05/08/17 13:39> Discharge Summary Reason For Visit: PNUEMONIA,FEVER - Home Medications Comprehensive Discharge Medication List: Ambulatory Orders Amlodipine Besylate [Norvasc -] 10 mg PO DAILY 10/10/13 Folic Acid 1 mg PO DAILY 10/10/13 Methotrexate [Mexate -] 25 mg PO Q7D 10/10/13 Metoprolol Succinate 100 mg PO DAILY 10/10/13 Aspirin [ASA -] 81 mg PO DAILY 05/03/17 Omeprazole 40 mg PO DAILY 05/03/17 Prednisone 5 mg PO DAILY 05/03/17 Clindamycin [Cleocin -] 300 mg PO TID #15 tab 05/07/17 <Marty Ceja - Last Filed: 05/07/17 16:18> - Home Medications Comprehensive Discharge Medication List: Ambulatory Orders Amlodipine Besylate [Norvasc -] 10 mg PO DAILY 10/10/13 Folic Acid 1 mg PO DAILY 10/10/13 Methotrexate [Mexate -] 25 mg PO Q7D 10/10/13 Metoprolol Succinate 100 mg PO DAILY 10/10/13 Aspirin [ASA -] 81 mg PO DAILY 05/03/17 Omeprazole 40 mg PO DAILY 05/03/17 Prednisone 5 mg PO DAILY 05/03/17 Clindamycin [Cleocin -] 300 mg PO TID #15 tab 05/07/17 <Tarsha Hernandez - Last Filed: 05/08/17 13:39> Condition: Improved - Instructions Diet, Activity, Other Instructions: You were admitted because you had pneumonia in your lungs which was causing you to be sick. We treated you with IV antibiotics and you got a lot better. Please continue your antibiotics: Clindamycin 300mg every 8 hours for 5 days We also detected a mass in your lungs on Cat scan. You will need to followup with your pulmonary doctor: Dr. Joseph to followup on the mass. You will need repeat imaging to see if the mass will change. Also, please followup with your primary care doctor If you have any severe symptoms, please return to the Emergency Department. Referrals: Sarbjit Joseph MD [Staff Physician] - 2 Weeks Disposition: HOME This patient is new to me today: No Emergency Visit: No Critical Care patient: No - Discharge Referral Referred to [facility] No <Marty Ceja - Last Filed: 05/07/17 16:18>
== END 2017-05-07 13:04 | disposition home or self-care (01) | DRG 871 ==
LOC: JER 11:28 → JERBED 17:24 → J8W 18:40
PROVIDERS: ADMIT Internal Medicine; ATTEND Internal Medicine
DX: A41.9 Sepsis, unspecified organism (principal); J18.9 Pneumonia, unspecified organism; N17.9 Acute kidney failure, unspecified; R65.20 Severe sepsis without septic shock; I10 Essential (primary) hypertension; E78.5 Hyperlipidemia, unspecified; E11.9 Type 2 diabetes mellitus without complications; I25.10 Atherosclerotic heart disease of native coronary artery without angina pectoris; R91.8 Other nonspecific abnormal finding of lung field; M06.9 Rheumatoid arthritis, unspecified; E86.9 Volume depletion, unspecified; Z87.891 Personal history of nicotine dependence
CPT/HCPCS: 36415; 70450-TC; 70552-TC; 71010-TC; 71250-TC; 80053; 80061; 81003; 83605; 83721; 83735; 84100; 84132; 85025; 85027; 85610; 85730; 86850; 86900; 86901; 87040; 87086; 87254; 87389; 87804; 93005; 93010; 93306-TC; 97116-GP; 97161-GP; 99285-25; G0480

== ENCOUNTER 2018-11-17 05:04 | Emergency (ER) | payer OTHER ==
--- NOTE | 2018-11-17 05:23 | PDOC ---
History of Present Illness - General Chief Complaint: Shortness of Breath Stated Complaint: DIFFICULTY BREATHING Time Seen by Provider: 11/17/18 05:08 - History of Present Illness Initial Comments: 11/17/18 05:28 Ms. Granados is a 57 yo female w/ pmh of RA, HTN, HLD, IN w/ stents, COPD who presents for evaluation of shortness of breath earlier today. Patient reports she woke from sleep wheezing and took her rescue inhaler however denies any benefit from use. Reports she is feeling somewhat improved now. Had previously been in her usual state of health however reports she recently had a bilateral leg US (negative) for some leg swelling. Denies any other symptoms at this time. The patient denies chest pain, headache and dizziness. Denies fever, chills, nausea, vomit, diarrhea and constipation. Denies dysuria, frequency, urgency and hematuria. Past History - Past Medical History Allergies/Adverse Reactions: Allergies Allergy/AdvReac Type Severity Reaction Status Date / Time cephalexin monohydrate Allergy Rash Verified 11/17/18 05:28 [From Keflex] levofloxacin [From Levaquin] Allergy Rash Verified 11/17/18 05:28 Home Medications: Ambulatory Orders Amlodipine Besylate [Norvasc -] 10 mg PO DAILY 10/10/13 Folic Acid 1 mg PO DAILY 10/10/13 Methotrexate [Mexate -] 10 mg PO SA 10/10/13 Metoprolol Succinate 100 mg PO DAILY 10/10/13 Aspirin [ASA -] 81 mg PO DAILY 05/03/17 Omeprazole 40 mg PO DAILY 05/03/17 Cardiac Disorders: Yes (-2007) COPD: Yes Diabetes: Yes GI Disorders: Yes (chronic heartburn) HTN: Yes Hypercholesterolemia: Yes - Surgical History Abdominal Surgery: (GASTRIC SLEEVE) Gastric Stapling: No (GASTRIC SLEEVE) Orthopedic Surgery: Yes (RIGHT KNEE TOTAL KNEE REPLACEMENT) - Suicide/Smoking/Psychosocial Hx Smoking History: Former smoker Have you smoked in the past 12 months: No Number of Cigarettes Smoked Daily: 30 If you are a former smoker, when did you quit?: 2007 Hx Alcohol Use: No Drug/Substance Use Hx: No Substance Use Type: None Hx Substance Use Treatment: No Review of Systems - Review of Systems Comments:: 11/17/18 05:31 GENERAL/CONSTITUTIONAL: No fever or chills. No weakness. HEAD, EYES, EARS, NOSE AND THROAT: No change in vision. No ear pain or discharge. No sore throat. CARDIOVASCULAR: +Shortness of breath as described. No chest pain. RESPIRATORY: No cough, wheezing, or hemoptysis. GASTROINTESTINAL: No nausea, vomiting, diarrhea or constipation. GENITOURINARY: No dysuria, frequency, or change in urination. MUSCULOSKELETAL: No joint or muscle swelling or pain. No neck or back pain. SKIN: No rash NEUROLOGIC: No headache, vertigo, loss of consciousness, or change in strength/ sensation. ENDOCRINE: No increased thirst. No abnormal weight change HEMATOLOGIC/LYMPHATIC: No anemia, easy bleeding, or history of blood clots. ALLERGIC/IMMUNOLOGIC: No hives or skin allergy. *Physical Exam - Physical Exam Comments: 11/17/18 05:31 GENERAL: +Patient obese. Awake, alert, and fully oriented, in no acute distress HEAD: No signs of trauma, normocephalic, atraumatic EYES: PERRLA, EOMI, sclera anicteric, conjunctiva clear ENT: Auricles normal inspection, hearing grossly normal, nares patent, oropharynx clear without exudates. Moist mucosa NECK: Normal ROM, supple, no lymphadenopathy, JVD, or masses LUNGS: +SATYA expiratory wheezes appreciated. No distress, speaks full sentences HEART: Regular rate and rhythm, normal S1 and S2, no murmurs, rubs or gallops, peripheral pulses normal and equal bilaterally. ABDOMEN: Soft, nontender, normoactive bowel sounds. No guarding, no rebound. No masses EXTREMITIES: + 1+ pedal edema noted SATYA. Otherwise normal inspection, normal range of motion, no edema. No clubbing or cyanosis. NEUROLOGICAL: Cranial nerves II through XII grossly intact. Normal speech, normal gait, no focal sensorimotor deficits SKIN: Warm, Dry, normal turgor, no rashes or lesions noted. Heart Score/ECG Review - History History: Moderately suspicious - Electrocardiogram EKG: Non specific repolarization disturbance - Age Age: 45-65 - Risk Factors Risk Factors Heart Score: Yes Hx Hypercholesterolemia, Yes Hx Hypertension, Yes Smoking History, Yes Hx Obesity Based on the list above the patient has:: >/=3 risk factors or Hx atherosclerotic disease - Troponin Troponin: </= normal limit - Score Heart Score - Total: 5 ED Treatment Course - LABORATORY CBC & Chemistry Diagram: 11/17/18 05:30 11/17/18 05:30 Medical Decision Making - Medical Decision Making 11/17/18 06:07 Ms. Granados is a 57 yo female w/ pmh as described who presents for evaluation of shortness of breath x1 day. Patient well appearing however given leg swelling and sudden onset SOB with wheezes, decision made to include d-dimer in addition to CBC/CMP/CXR/EKG/BNP to r/o PE vs. viral illness vs. ACS vs. COPD exacerbation. Patient given duonebs and solumedrol for symptomatic relief from SOB symptoms. 11/17/18 06:10 EKG significant for bradycardia to 51 with PAC's. 11/17/18 06:48 Patient signed out to Dr. Lujan for further evaluation. *DC/Admit/Observation/Transfer Diagnosis at time of Disposition: Shortness of breath Hypervolemia Qualifiers: Hypervolemia type: unspecified Qualified Code(s): E87.70 - Fluid overload, unspecified - Discharge Dispostion Condition at time of disposition: Fair Decision to Admit order: Yes - Referrals Referrals: Mark Garner [Primary Care Provider] - - Patient Instructions - Post Discharge Activity
--- NOTE | 2018-11-17 05:25 | PDOC ---
Attending Attestation - Resident Resident Name: Mark Schwartzorn - ED Attending Attestation I have performed the following: I have examined & evaluated the patient, The case was reviewed & discussed with the resident, I agree w/resident's findings & plan - HPI HPI: 11/17/18 06:02 57-year-old female complaining of shortness of breath and wheezing that woke her from sleep just prior to arrival. She denies actual chest pain nausea vomiting diarrhea fever or associated trauma. She does have a history of COPD but states she quit smoking approximately 10 years ago. Her significant other who is at the bedside is an active smoker but states he does not smoke in the house. She is feeling better at this time. - Physicial Exam PE: 11/17/18 06:03 GENERAL: Awake, in no acute distress HEAD: No signs of trauma EYES: ENT:clear without exudates. Moist mucosa NECK: Normal ROM, LUNGS:. Normal work of breathing, expiratory wheezing bilaterally with decreased air entry HEART: Regular rate and rhythm, ABDOMEN: Soft, nondistended CHEST WALL: BACK: No midline tenderness. EXTREMITIES:. No erythema, or tenderness, 1+ pitting edema bilaterally NEUROLOGICAL: Alert, SKIN: Warm, Dry - Medical Decision Making 11/17/18 06:04 57-year-old female with sudden onset of shortness of breath Patient exhibited bronchospasm on exam DuoNeb as well as Solu-Medrol 125 mg given on arrival Chest x-ray labs and EKG pending Signed out to oncoming team for reevaluation and final disposition
[2018-11-17 05:28] VITALS: TEMP 98.4; BMI 38.0
[2018-11-17] MEDS ORDERED: methylPREDNISolone NA SUCC 125 MG/2 ML VIAL IVPUSH ONE (05:37)
[2018-11-17] MEDS ORDERED: methylPREDNISolone NA SUCC 125 MG/2 ML VIAL ONE (05:58)
[2018-11-17] MEDS ORDERED: ALBUTEROL SO4 2.5/IPRATROPIUM 0.5 INH SOL 3 ML VIAL.NEB. NEB ONE (06:00)
[2018-11-17] MEDS: ALBUTEROL SO4 2.5/IPRATROPIUM 0.5 INH SOL 3 ML VIAL.NEB. NEB SCH ×4 (06:05→06:50)
[2018-11-17 06:10] LABS: BASO % 0.9 % (0-2.0); EOS % 2.3 % (0-4.5); HEMATOCRIT 38.1 % (32.4-45.2); HEMOGLOBIN 12.8 GM/dL (10.7-15.3); LYMPH % 39.8 % (8-40); MCH 31.3 pg (25.7-33.7); MCHC 33.6 g/dl (32.0-36.0); MEAN CELL VOLUME 93.1 fl (80-96); MEAN PLT VOLUME 9.9 fl (7.5-11.1); MONO % 13.4 % (3.8-10.2); NEUT % 43.6 % (42.8-82.8); PLATELET COUNT 187 K/MM3 (134-434); RDW 15.6 % (11.6-15.6); WHITE BLOOD COUNT 6.2 K/mm3 (4.0-10.0)
[2018-11-17 06:54] LABS: ALBUMIN 3.6 g/dl (3.4-5.0); ALK PHOS 86 U/L (45-117); ANION GAP 8 MMOL/L (8-16); BILIRUBIN,TOTAL 0.7 mg/dL (0.2-1); BLOOD UREA NITROGEN 10 mg/dL (7-18); CHLORIDE 110 mmol/L (98-107); CO2 26 mmol/L (21-32); CREATININE 0.9 mg/dL (0.55-1.3); GLUCOSE,RANDOM 131 mg/dL (74-106); N-TERMINAL BNP 338.6 pg/ml (5-125); POTASSIUM 4.4 mmol/L (3.5-5.1); SGOT/AST 25 U/L (15-37); SGPT/ALT 24 U/L (13-61); SODIUM 143 mmol/L (136-145); TOT PROT 7.2 g/dl (6.4-8.2)
--- NOTE | 2018-11-17 08:37 | PDOC ---
*Physical Exam - Vital Signs Last Vital Signs Temp Pulse Resp BP Pulse Ox 98.4 F 51 L 19 114/79 96 11/17/18 05:04 11/17/18 05:04 11/17/18 05:04 11/17/18 05:04 11/17/18 06:38 - Physical Exam Comments: 11/17/18 08:37 Received sign out from Dr. Schwartz ED Treatment Course - LABORATORY CBC & Chemistry Diagram: 11/17/18 05:30 11/17/18 05:30 - ADDITIONAL ORDERS Additional order review: Laboratory Results 11/17/18 11/17/18 06:10 05:30 D-Dimer Cancelled Sodium 143 Potassium 4.4 Chloride 110 H Carbon Dioxide 26 Anion Gap 8 BUN 10 Creatinine 0.9 Creat Clearance w eGFR > 60 Random Glucose 131 H Calcium 9.0 Total Bilirubin 0.7 AST 25 ALT 24 Alkaline Phosphatase 86 Creatine Kinase 172 Creatine Kinase Index 0.5 CK-MB (CK-2) < 1.0 Troponin I < 0.02 B-Natriuretic Peptide 338.6 H Total Protein 7.2 Albumin 3.6 11/17/18 05:30 RBC 4.10 MCV 93.1 MCHC 33.6 RDW 15.6 MPV 9.9 Neutrophils % 43.6 D Lymphocytes % 39.8 D Monocytes % 13.4 H Eosinophils % 2.3 D Basophils % 0.9 - RADIOLOGY Radiology Studies Ordered: Category Date Time Status CHEST CTA [CT] Stat CT Scan 11/17/18 07:28 Ordered - Medications Given in the ED: ED Medications Discontinued Medications Generic Name Dose Route Start Last Admin Trade Name Freq PRN Reason Stop Dose Admin Albuterol/Ipratropium 1 amp 11/17/18 05:45 11/17/18 06:50 Duoneb - NEB 11/17/18 06:31 1 amp Q15M VANESA Administration Methylprednisolone Sodium Succinate 125 mg 11/17/18 05:37 11/17/18 06:22 Solu-Medrol - IVPUSH 11/17/18 05:38 125 mg ONCE ONE Administration Medical Decision Making - Medical Decision Making Negative CTA chest for PE, dissection, and aneuysm. patient had significant improvement in respiration after breathing treatment. the patient agreed to follow up with her PMD within 1 week after discharge. patient was given return precautions. Dispo: Discharge *DC/Admit/Observation/Transfer Diagnosis at time of Disposition: Shortness of breath Hypervolemia Qualifiers: Hypervolemia type: unspecified Qualified Code(s): E87.70 - Fluid overload, unspecified - Discharge Dispostion Disposition: HOME Condition at time of disposition: Improved - Prescriptions Prescriptions: Albuterol Sulfate Inhaler - [Ventolin HFA Inhaler -] 1 - 2 inh PO Q4H PRN #1 inhaler PRN Reason: Shortness Of Breath predniSONE [Deltasone -] 40 mg PO DAILY #4 tablet - Referrals Referrals: Mark Garner [Primary Care Provider] - - Patient Instructions Printed Discharge Instructions: DI for Asthma -- Adult Additional Instructions: please follow up with your primary medical doctor within 4 days after discharge for follow up care and management. please take the prescription you were prescribed as written. please return to the emergency department if you have worsening symptoms or new concerning symptoms such as inability to breathe, chest pain, and confusion. thank you. - Post Discharge Activity
[2018-11-17 10:41] VITALS: BP 144/79; PULSE 84
--- NOTE | 2018-11-17 12:16 | EKG ---
Test Reason : Blood Pressure : / mmHG Vent. Rate : 051 BPM Atrial Rate : 051 BPM P-R Int : 168 ms QRS Dur : 066 ms QT Int : 430 ms P-R-T Axes : 044 -08 -41 degrees QTc Int : 396 ms POOR DATA QUALITY, INTERPRETATION MAY BE ADVERSELY AFFECTED SINUS BRADYCARDIA WITH PREMATURE ATRIAL COMPLEXES NONSPECIFIC ST AND T WAVE ABNORMALITY ABNORMAL ECG Confirmed by MD COURTNEY, ABHAY ([id number]) on 11/17/2018 12:15:57 PM Referred By: Confirmed By:ABHAY VALDEZ MD
== END 2018-11-17 10:43 | disposition home or self-care (01) ==
LOC: JER 05:04
PROC: 3E0F7GC Introduction of Other Therapeutic Substance into Respiratory Tract, Via Natural or Artificial Opening (ICD-10-PCS; principal; 2018-11-17)
PROC: 3E0333Z Introduction of Anti-inflammatory into Peripheral Vein, Percutaneous Approach (ICD-10-PCS; 2018-11-17)
DX: J45.998 Other asthma (principal); E87.70 Fluid overload, unspecified; J44.9 Chronic obstructive pulmonary disease, unspecified; I25.10 Atherosclerotic heart disease of native coronary artery without angina pectoris; I10 Essential (primary) hypertension; Z95.5 Presence of coronary angioplasty implant and graft; I25.2 Old myocardial infarction; E78.5 Hyperlipidemia, unspecified; M06.9 Rheumatoid arthritis, unspecified
CPT/HCPCS: 36415; 71046-TC-FY; 71275-TC; 80053; 82550; 82553; 83880; 84484; 85025; 85379; 93005; 93010; 99284-25

== ENCOUNTER 2019-09-19 23:48 | Inpatient (IN) | payer OTHER ==
--- NOTE | 2019-09-20 00:20 | PDOC ---
History of Present Illness - General Stated Complaint: FLU SYX History Source: Patient Exam Limitations: No Limitations - History of Present Illness Initial Comments: 09/20/19 00:15 Caleb is a 58 year old female, HTN, RA on Xalcan, Metotrexate, hypercholesterolemia, myocardial infarction (2004;no stents), ORIF right ankle, right knee replacement, BTL, dissection of retroperitoneal lymph node, gastric sleeve, complaining of sudden onset of fever shaking chills, and generalized body pain which started about 9:30 PM. Patient states that she was in her usual state of health prior to symptoms. She denies any nausea, vomiting, cough , dysuria, SOB. Patient states that she took 2 Vicodin's at 9:30 PM. She has gotten the flu shot for this season as yet. PMD: Dr. Muniz PMHX: As above PSOCHX: neg etoh, drug, cig ALL: NKDA GENERAL/CONSTITUTIONAL: [(+) fever (+)chills. No weakness. No weight change.] HEAD, EYES, EARS, NOSE AND THROAT: [No change in vision. No ear pain or discharge. No sore throat.] CARDIOVASCULAR: [No chest pain or shortness of breath.] RESPIRATORY: [No cough, wheezing, or hemoptysis.] GASTROINTESTINAL: [No nausea, vomiting, diarrhea or constipation. No rectal bleeding.] GENITOURINARY: [No dysuria, frequency, or change in urination.] MUSCULOSKELETAL: [No joint or muscle swelling or pain. No neck or back pain.] SKIN AND BREASTS: [No rash or easy bruising.] NEUROLOGIC: [No headache, vertigo, loss of consciousness, or loss of sensation.] PSYCHIATRIC: [No depression or anxiety.] ENDOCRINE: [No increased thirst. No abnormal weight change.] HEMATOLOGIC/LYMPHATIC: [No anemia, easy bleeding, or history of blood clots.] ALLERGIC/IMMUNOLOGIC: [No hives or skin allergy. No latex allergy.] GENERAL: [The patient is awake, alert, and fully oriented, in acute distress, shaking.] HEAD: [Normal with no signs of trauma.] EYES: [Pupils equal, round and reactive to light, extraocular movements intact, sclera anicteric, conjunctiva clear.] ENT: [Ears normal, nares patent, oropharynx clear without exudates. Moist mucous membranes.] NECK: [Normal range of motion, supple without lymphadenopathy, JVD, or masses.] LUNGS: [Breath sounds equal, clear to auscultation bilaterally. No wheezes, and no crackles.] HEART: [Regular rate and rhythm, normal S1 and S2 without murmur, rub.] ABDOMEN: [Soft, nontender, normoactive bowel sounds. No guarding, no rebound. No masses.] EXTREMITIES: [Normal range of motion, no edema. No clubbing or cyanosis. No cords, erythema, or tenderness.] NEUROLOGICAL: [Cranial nerves II through XII grossly intact. Normal speech, normal gait.] PSYCH: [Normal mood, normal affect.] SKIN: [Warmth, Dry, normal turgor, no rashes or lesions noted.] Past History - Past Medical History Allergies/Adverse Reactions: Allergies Allergy/AdvReac Type Severity Reaction Status Date / Time cephalexin monohydrate Allergy Rash Verified 09/20/19 00:20 [From Keflex] levofloxacin [From Levaquin] Allergy Rash Verified 09/20/19 00:20 Home Medications: Ambulatory Orders Amlodipine Besylate [Norvasc -] 10 mg PO DAILY 10/10/13 Folic Acid 1 mg PO DAILY 10/10/13 Methotrexate [Mexate -] 10 mg PO SA 10/10/13 Metoprolol Succinate 100 mg PO DAILY 10/10/13 Aspirin [ASA -] 81 mg PO DAILY 05/03/17 Omeprazole 40 mg PO DAILY 05/03/17 Albuterol Sulfate Inhaler - [Ventolin HFA Inhaler -] 1 - 2 inh PO Q4H PRN #1 inhaler 11/17/18 predniSONE [Deltasone -] 40 mg PO DAILY #4 tablet 11/17/18 Cardiac Disorders: Yes (-2007) COPD: Yes Diabetes: Yes GI Disorders: Yes (chronic heartburn) HTN: Yes Hypercholesterolemia: Yes - Surgical History Abdominal Surgery: (GASTRIC SLEEVE) Gastric Stapling: No (GASTRIC SLEEVE) Orthopedic Surgery: Yes (RIGHT KNEE TOTAL KNEE REPLACEMENT) - Psycho Social/Smoking Cessation Hx Smoking History: Former smoker Have you smoked in the past 12 months: No Number of Cigarettes Smoked Daily: 30 If you are a former smoker, when did you quit?: 2007 Hx Alcohol Use: No Drug/Substance Use Hx: No Substance Use Type: None Hx Substance Use Treatment: No ED Treatment Course - LABORATORY CBC & Chemistry Diagram: 09/20/19 00:46 09/20/19 00:46 Medical Decision Making - Medical Decision Making 09/20/19 00:15 Caleb is a 58 year old female, HTN, RA on Xalcan, Metotrexate, ORIF right ankle, right knee replacement, BTL, dissection of retroperitoneal lymph node, gastric sleeve, complaining of sudden onset of fever shaking chills, and generalized body pain which started about 9:30 PM. Patient states that she was in her usual state of health prior to symptoms. She denies any nausea, vomiting , cough, dysuria. Patient states that she took 2 Vicodin's at 9:30 PM. She has gotten the flu shot for this season as yet. DDX: Sepsis bacterial versus viral. Sepsis work-up IV fluids Chest x-ray, labs Endorsed to overnight attending for continued evaluation and treatment.. Discharge - Discharge Information Problems reviewed: Yes Clinical Impression/Diagnosis: Fever Qualifiers: Fever type: unspecified Qualified Code(s): R50.9 - Fever, unspecified Condition: Fair - Follow up/Referral Referrals: Mark Garner [Primary Care Provider] - - Patient Discharge Instructions - Post Discharge Activity
[2019-09-20 01:20] LABS: BASO % 0.5 % (0-2.0); EOS % 1.3 % (0-4.5); HEMATOCRIT 39.9 % (32.4-45.2); HEMOGLOBIN 12.8 GM/dL (10.7-15.3); LYMPH % 20.7 % (8-40); MCH 31.1 pg (25.7-33.7); MEAN CELL VOLUME 97.3 fl (80-96); MEAN PLT VOLUME 10.6 fl (7.5-11.1); MONO % 7.9 % (3.8-10.2); NEUT % 69.6 % (42.8-82.8); PLATELET COUNT 198 K/MM3 (134-434); RDW 14.7 % (11.6-15.6)
[2019-09-20 01:28] LABS: INR 0.97 (0.83-1.09); PROTHROMBIN TIME (PATIENT) 11.4 SEC (9.7-13.0)
[2019-09-20 01:30] LABS: ACTIVATED PTT 29.7 SECONDS (25.2-36.5)
[2019-09-20 01:40] LABS: ALBUMIN 3.5 g/dl (3.4-5.0); ALK PHOS 113 U/L (45-117); ANION GAP 7 MMOL/L (8-16); BILIRUBIN,TOTAL 0.3 mg/dL (0.2-1); BLOOD UREA NITROGEN 11.3 mg/dL (7-18); CALCIUM 9.1 mg/dL (8.5-10.1); CHLORIDE 106 mmol/L (98-107); CO2 29 mmol/L (21-32); CREATININE 1.3 mg/dL (0.55-1.3); GLUCOSE,RANDOM 110 mg/dL (74-106); POTASSIUM 4.6 mmol/L (3.5-5.1); SGOT/AST 26 U/L (15-37); SGPT/ALT 22 U/L (13-61); SODIUM 142 mmol/L (136-145)
[2019-09-20] MEDS ORDERED: SODIUM CHLORIDE 0.9% 1000 ML INFUS.BAG IV STA (01:44)
--- NOTE | 2019-09-20 01:47 | PDOC ---
*Physical Exam - Vital Signs Last Vital Signs Temp Pulse Resp BP Pulse Ox 102.8 F H 112 H 20 195/88 H 97 09/20/19 00:17 09/20/19 00:17 09/20/19 00:17 09/20/19 00:17 09/20/19 00:17 ED Treatment Course - LABORATORY CBC & Chemistry Diagram: 09/20/19 07:07 09/20/19 07:07 - ADDITIONAL ORDERS Additional order review: Laboratory Results 09/20/19 09/20/19 09/20/19 00:48 00:46 00:46 PT with INR 11.40 INR 0.97 PTT (Actin FS) 29.7 Sodium 142 Potassium 4.6 Chloride 106 Carbon Dioxide 29 Anion Gap 7 L BUN 11.3 Creatinine 1.3 Est GFR (CKD-EPI)AfAm 52.00 Est GFR (CKD-EPI)NonAf 44.87 Random Glucose 110 H Lactic Acid 2.8 H* Calcium 9.1 Total Bilirubin 0.3 AST 26 ALT 22 Alkaline Phosphatase 113 Troponin I < 0.02 Total Protein 8.0 Albumin 3.5 09/20/19 00:46 RBC 4.10 MCV 97.3 H MCHC 32.0 RDW 14.7 MPV 10.6 Neutrophils % 69.6 D Lymphocytes % 20.7 D Monocytes % 7.9 Eosinophils % 1.3 Basophils % 0.5 Medical Decision Making - Medical Decision Making 09/20/19 01:45 This patient was initially seen by the nurse practitioner but because of the patient's comorbidities she was transferred to the main emergency department for evaluation of her fever Patient presented tachycardic, febrile and hypertensive and sepsis work-up was ordered Her body WEIGHT 118 kg and according to the sepsis worksheet she would require 3.5 L of fluid for resuscitation but there was concern we will put this patient into CHF Therefore she was given a reduced fluid bolus instead of the 30 mL's per KG sepsis order Discharge - Discharge Information Problems reviewed: Yes Clinical Impression/Diagnosis: Fever, Sepsis, UTI (urinary tract infection) Condition: Improved - Follow up/Referral - Patient Discharge Instructions - Post Discharge Activity
[2019-09-20] MEDS ORDERED: ACETAMINOPHEN 650 MG/20.3 ML ORAL SOLUTION (CUPS) PO STA (01:52)
[2019-09-20] MEDS ORDERED: ACETAMINOPHEN 325 MG TABLET (FP) ONE ×2 (02:21→14:30)
[2019-09-20 03:53] LABS: EPI CELLS 0.8 /HPF (0-5/HPF); HYALINE CASTS 6 /lpf (0-8); URINE APPEARANCE CLEAR; URINE BACTERIA 3201.4 /hpf (NEGATIVE); URINE BILIRUBIN NEGATIVE (NEGATIVE); URINE COLOR YELLOW; URINE GLUCOSE (UA) NEGATIVE (NEGATIVE); URINE KETONE NEGATIVE (NEGATIVE); URINE LEUK ESTERASE 2+ (NEGATIVE); URINE NITRITE POSITIVE (NEGATIVE); URINE PROTEIN NEGATIVE (NEGATIVE); URINE RBC 4 /hpf (0-4); URINE UROBILINOGEN 0.2 mg/dL (0.2-1.0); URINE WBC 72 /hpf (0-5)
--- NOTE | 2019-09-20 05:04 | PDOC ---
*Physical Exam - Vital Signs Last Vital Signs Temp Pulse Resp BP Pulse Ox 99.5 F 93 H 20 144/81 95 09/20/19 03:30 09/20/19 03:30 09/20/19 03:30 09/20/19 03:30 09/20/19 03:30 ED Treatment Course - LABORATORY CBC & Chemistry Diagram: 09/20/19 00:46 09/20/19 00:46 - ADDITIONAL ORDERS Additional order review: Laboratory Results 09/20/19 09/20/19 09/20/19 04:21 03:20 00:48 PT with INR INR PTT (Actin FS) Sodium Potassium Chloride Carbon Dioxide Anion Gap BUN Creatinine Est GFR (CKD-EPI)AfAm Est GFR (CKD-EPI)NonAf Random Glucose Lactic Acid 2.6 H* 2.8 H* Calcium Total Bilirubin AST ALT Alkaline Phosphatase Troponin I Total Protein Albumin Urine Color Yellow Urine Appearance Clear Urine pH 8.0 D Ur Specific [place] 1.015 Urine Protein Negative Urine Glucose (UA) Negative Urine Ketones Negative Urine Blood Negative Urine Nitrite Positive H Urine Bilirubin Negative Urine Urobilinogen 0.2 Ur Leukocyte Esterase 2+ H Urine WBC (Auto) 72 Urine RBC (Auto) 4 Urine Casts (Auto) 6 U Epithel Cells (Auto) 0.8 Urine Bacteria (Auto) 3201.4 09/20/19 09/20/19 00:46 00:46 PT with INR 11.40 INR 0.97 PTT (Actin FS) 29.7 Sodium 142 Potassium 4.6 Chloride 106 Carbon Dioxide 29 Anion Gap 7 L BUN 11.3 Creatinine 1.3 Est GFR (CKD-EPI)AfAm 52.00 Est GFR (CKD-EPI)NonAf 44.87 Random Glucose 110 H Lactic Acid Calcium 9.1 Total Bilirubin 0.3 AST 26 ALT 22 Alkaline Phosphatase 113 Troponin I < 0.02 Total Protein 8.0 Albumin 3.5 Urine Color Urine Appearance Urine pH Ur Specific [place] Urine Protein Urine Glucose (UA) Urine Ketones Urine Blood Urine Nitrite Urine Bilirubin Urine Urobilinogen Ur Leukocyte Esterase Urine WBC (Auto) Urine RBC (Auto) Urine Casts (Auto) U Epithel Cells (Auto) Urine Bacteria (Auto) 09/20/19 00:46 RBC 4.10 MCV 97.3 H MCHC 32.0 RDW 14.7 MPV 10.6 Neutrophils % 69.6 D Lymphocytes % 20.7 D Monocytes % 7.9 Eosinophils % 1.3 Basophils % 0.5 - Medications Given in the ED: ED Medications Discontinued Medications Generic Name Dose Route Start Last Admin Trade Name Tina PRN Reason Stop Dose Admin Acetaminophen 975 mg 09/20/19 01:52 09/20/19 02:23 Tylenol Oral Solution - PO 09/20/19 01:53 975 mg ONCE STA Administration Sodium Chloride 1,179 ml 09/20/19 01:44 09/20/19 02:31 Normal Saline - 10 ml/kg (1179 ml) 09/20/19 01:45 1,179 ml IV Administration ONCE STA Medical Decision Making - Medical Decision Making 09/20/19 05:04 58 year old female, HTN, RA on Xalcan, Metotrexate, hypercholesterolemia, myocardial infarction (2004;no stents), presenting with F/C, bodyaches. - Labs consistent with UTI - Pt with initial lactate of 2.8 - Lactate persistently elevated to 2.6 despite IVF bolus Pt admitted to hospitalist Discharge - Discharge Information Problems reviewed: Yes Clinical Impression/Diagnosis: Sepsis, UTI (urinary tract infection) Fever Qualifiers: Fever type: unspecified Qualified Code(s): R50.9 - Fever, unspecified Condition: Fair - Admission Yes - Additional Discharge Information Prescriptions: Sulfamethoxazole/Trimethoprim [Bactrim Ds -] 1 tab PO BID #14 tablet - Follow up/Referral Referrals: Mark Garenr [Primary Care Provider] - - Patient Discharge Instructions - Post Discharge Activity
[2019-09-20] MEDS ORDERED: PIPERACILLIN/TAZOB 4.5 GM 4.5 GM in DEXTROSE 5%-WATER 100 ML IVPB ONE (05:06)
[2019-09-20] MEDS ORDERED: SODIUM CHLORIDE 1,000 ML IV SCH (05:30)
[2019-09-20] MEDS ORDERED: PIPERACILLIN/TAZOB 4.5 GM 4.5 GM/100 ML BAG IVPB ONE (05:54)
--- NOTE | 2019-09-20 06:36 | PN ---
Teaching Attending Note Name of Resident: Nic Agarwal ATTENDING PHYSICIAN STATEMENT I saw and evaluated the patient. I reviewed the resident's note and discussed the case with the resident. I agree with the resident's findings and plan as documented. SUBJECTIVE: 58 year old female, HTN, RA on Xalcan, Metotrexate, hypercholesterolemia, myocardial infarction (2004;no stents), ORIF right ankle, right knee replacement , gastric sleeve, complaining of sudden onset of fever shaking chills, and generalized body pain which started about 9:30 PM On 08/20/2019. Patient states that she was in her usual state of health prior to symptoms. She denies any nausea, vomiting, cough, dysuria, SOB. OBJECTIVE: Last Vital Signs Temp Pulse Resp BP Pulse Ox 99.5 F 93 H 20 144/81 98 09/20/19 03:30 09/20/19 03:30 09/20/19 03:30 09/20/19 03:30 09/20/19 04:30 GENERAL: Well developed, well nourished. Awake and alert. No acute distress.Morbidly obese HEENT: Normocephalic, atraumatic. PERRLA, EOMI. No conjunctival pallor. Sclera are non- icteric. Moist mucous membranes. Oropharynx is clear. NECK: Supple. Full ROM. No JVD. Carotid pulses 2+ and symmetric, without bruits. No thyromegaly. No lymphadenopathy. CARDIOVASCULAR: Regular rate and rhythm. No murmurs, rubs, or gallops. Distal pulses are 2+ and symmetric. PULMONARY: No evidence of respiratory distress. Lungs clear to auscultation bilaterally. No wheezing, rales or rhonchi. ABDOMINAL: Soft. Non-tender. Non-distended. No rebound or guarding. No organomegaly. Normoactive bowel sounds. MUSCULOSKELETAL Normal range of motion at all joints. No bony deformities or tenderness. No CVA tenderness. EXTREMITIES: No cyanosis. No clubbing. No edema. No calf tenderness. SKIN: Warm and dry. Normal capillary refill. No rashes. No jaundice. PSYCHIATRIC: Cooperative. Good eye contact. Appropriate mood and affect. Abnormal Lab Results 09/20/19 09/20/19 09/20/19 00:46 00:46 00:48 WBC 11.0 H MCV 97.3 H Anion Gap 7 L Random Glucose 110 H Lactic Acid 2.8 H* Urine Nitrite Ur Leukocyte Esterase 09/20/19 09/20/19 03:20 04:21 WBC MCV Anion Gap Random Glucose Lactic Acid 2.6 H* Urine Nitrite Positive H Ur Leukocyte Esterase 2+ H Imaging reviewed ASSESSMENT AND PLAN: 58-year-old woman with generalized weakness, chills, high fever without other complaints suggestive of possible viral URI. Although her flu swab was negative it does not Definitively preclude possibility of influenza. Patient denied urinary symptoms other than polyuria which may be attributed to her hyperglycemia. Although UTIs not very convincing would treat with Macrobid for a short course for Possible cystitis as well as give a 5-day course of Tamiflu for possible influenza.
--- NOTE | 2019-09-20 06:51 | HP ---
CHIEF COMPLAINT: Fever/Chills/myalgia HISTORY OF PRESENT ILLNESS: This is a 58 y/o F with a PMHx of DM (on ozempic), HTN, RA (on xaltran), HLD, [place] (2004 without stent placement), who presents to the ED c/o fever, chills, myalgia since last night. Pt notes having to clear her throat occasionally for the past day and yellow phlegm comes up. Furthermore , pt endorsed to having increased urgency but denies any dysuria. She denies receiving the flu shot yet this yr but would like it. She denies any recent sick contacts, cp, sob, leg swelling, abd pain, nausea, vomiting, bowel complaints, cva tenderness, or hematuria. Pt admits to not taking her night time BP medication today. ER course was notable for: (1)CXR- hyperaerated lung lópez (2) UA- 2+ leuk est, positive nitrite, 3201.4 bacteria (3) Recent Travel: denies Social History: Smokin pack yr history of smoking Alcohol: denies Drugs: denies Allergies cephalexin monohydrate [From Keflex] Allergy (Verified 09/20/19 00:20) Rash levofloxacin [From Levaquin] Allergy (Verified 09/20/19 00:20) Rash STATED BY SIDDHARTHA RICHARD FROM ER HOME MEDICATIONS: Home Medications Medication Instructions Recorded Folic Acid 1 mg PO DAILY 10/10/13 Methotrexate [Mexate -] 10 mg PO SA 10/10/13 Metoprolol Succinate 100 mg PO DAILY 10/10/13 Aspirin [ASA -] 81 mg PO DAILY 05/03/17 Omeprazole 40 mg PO DAILY 05/03/17 Albuterol Sulfate Inhaler - 1 - 2 inh PO Q4H PRN #1 inhaler 11/17/18 [Ventolin HFA Inhaler -] Losartan Potassium 100 mg PO DAILY 09/20/19 Tofacitinib Citrate [Xeljanz Xr] 11 mg PO DAILY 09/20/19 REVIEW OF SYSTEMS negative except in HPI PHYSICAL EXAMINATION Vital Signs - 24 hr 09/20/19 09/20/19 09/20/19 00:17 03:30 04:30 Temperature 102.8 F H 99.5 F Pulse Rate 112 H Pulse Rate [ 93 H Left Radial] Respiratory 20 20 Rate Blood Pressure 195/88 H Blood Pressure 144/81 [Left Arm] O2 Sat by Pulse 97 95 98 Oximetry (%) GENERAL: Awake, alert, and fully oriented, in no acute distress. LUNGS: Breath sounds equal, clear to auscultation bilaterally. No wheezes, and no crackles. No accessory muscle use. HEART: Regular rate and rhythm, normal S1 and S2 without murmur, rub or gallop. ABDOMEN: Soft, nontender, not distended, normoactive bowel sounds, no guarding, no rebound, no masses. MUSCULOSKELETAL: No CVA tenderness. LOWER EXTREMITIES: 1+ pulses b/l, no foot ulcers present, warm, well-perfused. No calf tenderness. No peripheral edema. NEUROLOGICAL: Cranial nerves II-XII intact. Normal speech. Normal gait. PSYCHIATRIC: Cooperative. Good eye contact. Appropriate mood and affect. SKIN: Warm, dry skin. Laboratory Results - last 24 hr 09/20/19 09/20/19 09/20/19 00:46 00:46 00:46 WBC 11.0 H RBC 4.10 Hgb 12.8 Hct 39.9 MCV 97.3 H MCH 31.1 MCHC 32.0 RDW 14.7 Plt Count 198 MPV 10.6 Absolute Neuts (auto) 7.7 Neutrophils % 69.6 D Lymphocytes % 20.7 D Monocytes % 7.9 Eosinophils % 1.3 Basophils % 0.5 Nucleated RBC % 0 PT with INR 11.40 INR 0.97 PTT (Actin FS) 29.7 Sodium 142 Potassium 4.6 Chloride 106 Carbon Dioxide 29 Anion Gap 7 L BUN 11.3 Creatinine 1.3 Est GFR (CKD-EPI)AfAm 52.00 Est GFR (CKD-EPI)NonAf 44.87 Random Glucose 110 H Lactic Acid Calcium 9.1 Total Bilirubin 0.3 AST 26 ALT 22 Alkaline Phosphatase 113 Troponin I < 0.02 Total Protein 8.0 Albumin 3.5 Urine Color Urine Appearance Urine pH Ur Specific [place] Urine Protein Urine Glucose (UA) Urine Ketones Urine Blood Urine Nitrite Urine Bilirubin Urine Urobilinogen Ur Leukocyte Esterase Urine WBC (Auto) Urine RBC (Auto) Urine Casts (Auto) U Epithel Cells (Auto) Urine Bacteria (Auto) Influenza A (Rapid) Influenza B (Rapid) 09/20/19 09/20/19 09/20/19 00:48 01:20 03:20 WBC RBC Hgb Hct MCV MCH MCHC RDW Plt Count MPV Absolute Neuts (auto) Neutrophils % Lymphocytes % Monocytes % Eosinophils % Basophils % Nucleated RBC % PT with INR INR PTT (Actin FS) Sodium Potassium Chloride Carbon Dioxide Anion Gap BUN Creatinine Est GFR (CKD-EPI)AfAm Est GFR (CKD-EPI)NonAf Random Glucose Lactic Acid 2.8 H* Calcium Total Bilirubin AST ALT Alkaline Phosphatase Troponin I Total Protein Albumin Urine Color Yellow Urine Appearance Clear Urine pH 8.0 D Ur Specific [place] 1.015 Urine Protein Negative Urine Glucose (UA) Negative Urine Ketones Negative Urine Blood Negative Urine Nitrite Positive H Urine Bilirubin Negative Urine Urobilinogen 0.2 Ur Leukocyte Esterase 2+ H Urine WBC (Auto) 72 Urine RBC (Auto) 4 Urine Casts (Auto) 6 U Epithel Cells (Auto) 0.8 Urine Bacteria (Auto) 3201.4 Influenza A (Rapid) Negative Influenza B (Rapid) Negative 09/20/19 04:21 WBC RBC Hgb Hct MCV MCH MCHC RDW Plt Count MPV Absolute Neuts (auto) Neutrophils % Lymphocytes % Monocytes % Eosinophils % Basophils % Nucleated RBC % PT with INR INR PTT (Actin FS) Sodium Potassium Chloride Carbon Dioxide Anion Gap BUN Creatinine Est GFR (CKD-EPI)AfAm Est GFR (CKD-EPI)NonAf Random Glucose Lactic Acid 2.6 H* Calcium Total Bilirubin AST ALT Alkaline Phosphatase Troponin I Total Protein Albumin Urine Color Urine Appearance Urine pH Ur Specific [place] Urine Protein Urine Glucose (UA) Urine Ketones Urine Blood Urine Nitrite Urine Bilirubin Urine Urobilinogen Ur Leukocyte Esterase Urine WBC (Auto) Urine RBC (Auto) Urine Casts (Auto) U Epithel Cells (Auto) Urine Bacteria (Auto) Influenza A (Rapid) Influenza B (Rapid) ASSESSMENT/PLAN: This is a 58 y/o F with a PMHx of DM (on ozempic), HTN, RA (on xaltran), HLD, [place] (2004 without stent placement), who presents to the ED c/o fever, chills, myalgia since last night. #Viral URI - likely Influenza even though rapid flu negative - would need RT-PCR to confirm - tamiflu 75 BID X 5 days due to symptom onset being within 72 hr period. - will monitor vital signs - supportive therapy with IVF, tylenol prn for fever, rpt lactate to ensure it normalized with fluid resuscitation #Asymptomatic bacteriuria - pt does not fully require treatment but given immunosuppressive medication pt on for RA treatment will start Macrobid 100 BID - in chart pt labeled as allergic to levaquin, however upon pt interview she endorses to localized erythema at the IV site which does not suggest systemic allergic response and thus should be taken off her allergy list. #HTN - Pt should be med rec'd - if pt not on CARRIE inhibitor start lisinopril 10mg for adequate HTN management - low Na diet - continue home meds #CAD hx/HLD - pt rightfully so on a Beta david - pt should be on statin moderate to high intensity (crestor 20) given ASCVD risk >7.5% and diabetic - echo ordered to assess EF #DM - would assess A1C given pt has not checked it in several months - ISS TIDAC, holding at home antihyperglycemics Lovenox 40SQ daily Visit type - Emergency Visit Emergency Visit: Yes ED Registration Date: 09/20/19 Care time: The patient presented to the Emergency Department on the above date and was hospitalized for further evaluation of their emergent condition. - New Patient This patient is new to me today: Yes Date on this admission: 09/21/19 - Critical Care Critical Care patient: No ATTENDING PHYSICIAN STATEMENT I saw and evaluated the patient. I reviewed the resident's note and discussed the case with the resident. I agree with the resident's findings and plan as documented. SUBJECTIVE: OBJECTIVE: ASSESSMENT AND PLAN:
[2019-09-20 07:17] LABS: HEMATOCRIT 34.4 % (32.4-45.2); HEMOGLOBIN 11.3 GM/dL (10.7-15.3); MCH 31.1 pg (25.7-33.7); MCHC 32.8 g/dl (32.0-36.0); MEAN CELL VOLUME 94.7 fl (80-96); MEAN PLT VOLUME 9.7 fl (7.5-11.1); PLATELET COUNT 193 K/MM3 (134-434); RBC 3.63 M/mm3 (3.60-5.2); RDW 14.5 % (11.6-15.6); WHITE BLOOD COUNT 12.9 K/mm3 (4.0-10.0)
[2019-09-20 07:45] LABS: BLOOD UREA NITROGEN 11.9 mg/dL (7-18); CALCIUM 8.4 mg/dL (8.5-10.1); CREATININE 1.2 mg/dL (0.55-1.3); MAGNESIUM 2.1 mg/dL (1.8-2.4); PHOSPHOROUS 3.7 mg/dL (2.5-4.9); POTASSIUM 3.8 mmol/L (3.5-5.1)
[2019-09-20] MEDS: INSULIN SLIDING SCALE (NOVOLOG) 1 VIAL SQ SCH ×4 (08:39→22:43)
[2019-09-20] MEDS ORDERED: ACETAMINOPHEN 500 MG TABLET (FP) PO ONE (09:12)
[2019-09-20] MEDS: ENOXAPARIN NA (PORCINE) 40 MG/0.4 ML DISP.SYRIN SQ SCH (09:28)
[2019-09-20] MEDS: SODIUM CHLORIDE 1,000 ML IV SCH (09:36)
[2019-09-20] MEDS ORDERED: OSELTAMIVIR PHOSPHATE 75 MG CAPSULE PO SCH (10:00)
[2019-09-20] MEDS ORDERED: SULFAMETHOXAZOLE/TRIMETHOPRIM 400MG/80MG S.S. TABLET PO SCH ×2 (10:15→12:05)
[2019-09-20] MEDS ORDERED: SULFAMETHOXAZOLE/TRIMETHOPRIM 800MG/160MG D.S. TABLET ONE (10:20)
--- NOTE | 2019-09-20 10:37 | EKG ---
Test Reason : Blood Pressure : / mmHG Vent. Rate : 106 BPM Atrial Rate : 106 BPM P-R Int : 144 ms QRS Dur : 078 ms QT Int : 344 ms P-R-T Axes : 048 -18 015 degrees QTc Int : 456 ms SINUS TACHYCARDIA OTHERWISE NORMAL ECG WHEN COMPARED WITH ECG OF 17-NOV-2018 06:03, PREMATURE ATRIAL COMPLEXES ARE NO LONGER PRESENT VENT. RATE HAS INCREASED BY 55 BPM Confirmed by YOLIE GOODRICH, JAZIEL ([id number]) on 09/20/2019 10:37:25 AM Referred By: Confirmed By:JAZIEL URBANO MD
[2019-09-20] MEDS ORDERED: NITROFURANTOIN MACROCRYSTAL 50 MG CAPSULE (FP) PO SCH (12:00)
--- NOTE | 2019-09-20 13:20 | PN ---
Teaching Attending Note Name of Resident: Zack Mcgovern ATTENDING PHYSICIAN STATEMENT I saw and evaluated the patient. I reviewed the resident's note and discussed the case with the resident. I agree with the resident's findings and plan as documented. SUBJECTIVE: Feels chills. No cough/sputum/hemoptysis/SOB. No dysuria/hematuria. No diarrhea. No rash. OBJECTIVE: Febrile on presentation, Tmax 102.8. Hemodynamicaly Stable. Last Vital Signs Temp Pulse Resp BP Pulse Ox 98.2 F 86 18 159/85 99 09/20/19 09:29 09/20/19 09:29 09/20/19 09:29 09/20/19 09:29 09/20/19 09:29 HEENT - Atramatic, Normocephalic. Heart - S1, S2, RRR Lungs - clear to auscultation Abdomen - soft, non-tender. Bowel Sounds normal. Extremities - no calf tenderness. Neuro - AAO x 3. Tone/Power normal all 4 extremities. Laboratory Results - last 24 hr 09/20/19 09/20/19 09/20/19 00:46 00:46 00:46 WBC 11.0 H RBC 4.10 Hgb 12.8 Hct 39.9 MCV 97.3 H MCH 31.1 MCHC 32.0 RDW 14.7 Plt Count 198 MPV 10.6 Absolute Neuts (auto) 7.7 Neutrophils % 69.6 D Lymphocytes % 20.7 D Monocytes % 7.9 Eosinophils % 1.3 Basophils % 0.5 Nucleated RBC % 0 PT with INR 11.40 INR 0.97 PTT (Actin FS) 29.7 Sodium 142 Potassium 4.6 Chloride 106 Carbon Dioxide 29 Anion Gap 7 L BUN 11.3 Creatinine 1.3 Est GFR (CKD-EPI)AfAm 52.00 Est GFR (CKD-EPI)NonAf 44.87 POC Glucometer Random Glucose 110 H Lactic Acid Calcium 9.1 Phosphorus Magnesium Total Bilirubin 0.3 AST 26 ALT 22 Alkaline Phosphatase 113 Troponin I < 0.02 Total Protein 8.0 Albumin 3.5 Urine Color Urine Appearance Urine pH Ur Specific [place] Urine Protein Urine Glucose (UA) Urine Ketones Urine Blood Urine Nitrite Urine Bilirubin Urine Urobilinogen Ur Leukocyte Esterase Urine WBC (Auto) Urine RBC (Auto) Urine Casts (Auto) U Epithel Cells (Auto) Urine Bacteria (Auto) Influenza A (Rapid) Influenza B (Rapid) 12/02/19 12/02/19 12/02/19 00:48 01:20 03:20 WBC RBC Hgb Hct MCV MCH MCHC RDW Plt Count MPV Absolute Neuts (auto) Neutrophils % Lymphocytes % Monocytes % Eosinophils % Basophils % Nucleated RBC % PT with INR INR PTT (Actin FS) Sodium Potassium Chloride Carbon Dioxide Anion Gap BUN Creatinine Est GFR (CKD-EPI)AfAm Est GFR (CKD-EPI)NonAf POC Glucometer Random Glucose Lactic Acid 2.8 H* Calcium Phosphorus Magnesium Total Bilirubin AST ALT Alkaline Phosphatase Troponin I Total Protein Albumin Urine Color Yellow Urine Appearance Clear Urine pH 8.0 D Ur Specific [place] 1.015 Urine Protein Negative Urine Glucose (UA) Negative Urine Ketones Negative Urine Blood Negative Urine Nitrite Positive H Urine Bilirubin Negative Urine Urobilinogen 0.2 Ur Leukocyte Esterase 2+ H Urine WBC (Auto) 72 Urine RBC (Auto) 4 Urine Casts (Auto) 6 U Epithel Cells (Auto) 0.8 Urine Bacteria (Auto) 3201.4 Influenza A (Rapid) Negative Influenza B (Rapid) Negative 09/20/19 09/20/19 09/20/19 04:21 07:07 07:07 WBC 12.9 H RBC 3.63 Hgb 11.3 Hct 34.4 MCV 94.7 MCH 31.1 MCHC 32.8 RDW 14.5 Plt Count 193 MPV 9.7 Absolute Neuts (auto) Neutrophils % Lymphocytes % Monocytes % Eosinophils % Basophils % Nucleated RBC % PT with INR INR PTT (Actin FS) Sodium 141 Potassium 3.8 Chloride 108 H Carbon Dioxide 27 Anion Gap 6 L BUN 11.9 Creatinine 1.2 Est GFR (CKD-EPI)AfAm 57.29 Est GFR (CKD-EPI)NonAf 49.43 POC Glucometer Random Glucose 143 H Lactic Acid 2.6 H* Calcium 8.4 L Phosphorus 3.7 Magnesium 2.1 Total Bilirubin AST ALT Alkaline Phosphatase Troponin I Total Protein Albumin Urine Color Urine Appearance Urine pH Ur Specific [place] Urine Protein Urine Glucose (UA) Urine Ketones Urine Blood Urine Nitrite Urine Bilirubin Urine Urobilinogen Ur Leukocyte Esterase Urine WBC (Auto) Urine RBC (Auto) Urine Casts (Auto) U Epithel Cells (Auto) Urine Bacteria (Auto) Influenza A (Rapid) Influenza B (Rapid) 09/20/19 09/20/19 09/20/19 08:36 09:24 11:52 WBC RBC Hgb Hct MCV MCH MCHC RDW Plt Count MPV Absolute Neuts (auto) Neutrophils % Lymphocytes % Monocytes % Eosinophils % Basophils % Nucleated RBC % PT with INR INR PTT (Actin FS) Sodium Potassium Chloride Carbon Dioxide Anion Gap BUN Creatinine Est GFR (CKD-EPI)AfAm Est GFR (CKD-EPI)NonAf POC Glucometer 88 84 Random Glucose Lactic Acid 1.4 Calcium Phosphorus Magnesium Total Bilirubin AST ALT Alkaline Phosphatase Troponin I Total Protein Albumin Urine Color Urine Appearance Urine pH Ur Specific [place] Urine Protein Urine Glucose (UA) Urine Ketones Urine Blood Urine Nitrite Urine Bilirubin Urine Urobilinogen Ur Leukocyte Esterase Urine WBC (Auto) Urine RBC (Auto) Urine Casts (Auto) U Epithel Cells (Auto) Urine Bacteria (Auto) Influenza A (Rapid) Influenza B (Rapid) Current Medications Generic Name Dose Route Start Last Admin Trade Name Freq PRN Reason Stop Dose Admin Acetaminophen 650 mg 09/20/19 05:15 Tylenol - PO Q4H PRN FEVER Enoxaparin Sodium 40 mg 09/20/19 10:00 09/20/19 09:28 Lovenox - SQ Not Given DAILY [facility] Sodium Chloride 1,000 mls @ 100 mls/hr 09/20/19 09:34 09/20/19 09:36 Normal Saline - IV 100 mls/hr ASDIR VANESA Administration Insulin Aspart 1 vial 09/20/19 07:00 09/20/19 11:54 Novolog Vial Sliding Scale - SQ Not Given ACHS [facility] Protocol Home Medications Medication Instructions Recorded Folic Acid 1 mg PO DAILY 10/10/13 Methotrexate [Mexate -] 10 mg PO SA 10/10/13 Metoprolol Succinate 100 mg PO DAILY 10/10/13 Aspirin [ASA -] 81 mg PO DAILY 05/03/17 Omeprazole 40 mg PO DAILY 05/03/17 Albuterol Sulfate Inhaler - 1 - 2 inh PO Q4H PRN #1 inhaler 11/17/18 [Ventolin HFA Inhaler -] Losartan Potassium 100 mg PO DAILY 09/20/19 Tofacitinib Citrate [Xeljanz Xr] 11 mg PO DAILY 09/20/19 ASSESSMENT AND PLAN: 58 year old female with history of HTN, RA on Tofacitinib/MTX, HLD, CAD s/p [place] 2004, s/p gastric sleeve bariatric surgery, s/p ORIF R ankle, s/p R Knee replacement, presents with fever/chills/generalized myalgia. No cough/sputum/ dysuria/abdomienal pain/nausea/vomiting/diarrhea. 1. Sepsis due to Bacteremia (Gram negative bacilli), source unclear. Fever, tachycardia, leukocytosis in mmunocompromized patient due to immune modulators for RA Continue Zosyn given in ED, CXR - no infiltrate. Flu negative. UCx pending. Gentle IV fluids ID consult. 2. HTN - Continue BB. Additional agent Losartan held in setting of sepsis and bacteremia, may resume if BP climbs. 3. RA - Stable on Tofacitinib/MTX 4. CAD s/p [place] 2004 - continue ASA, BB 5. DM 2 - A1c requested. Maintain on Novolog sliding scale. DVT Px - Lovenox SQ
[2019-09-20] MEDS ORDERED: PIPERACILLIN/TAZOB 3.375 GM 3.375 GM/50 ML BAG IVPB ONE (13:59)
[2019-09-20] MEDS: ACETAMINOPHEN 325 MG TABLET (FP) PO PRN (14:32)
[2019-09-20] MEDS ORDERED: PIPERACILLIN/TAZOB 3.375 GM 3.375 GM in DEXTROSE 5%-WATER - 50 ML IVPB SCH ×2 (15:00→18:00)
[2019-09-20] MEDS ORDERED: PANTOPRAZOLE 40 MG TABLET (FP) PO ONE (15:07)
[2019-09-20] MEDS ORDERED: PANTOPRAZOLE 40 MG TABLET (FP) ONE (15:11)
--- NOTE | 2019-09-20 16:22 | PN ---
Progress Note (short form) - Note Progress Note: ID CONSULT DICTATED GRAM NEGATIVE SEPSIS ? SOURCE UTI LACTIC ACIDOSIS RA ON IMMUNOSUPPRESSIVE THERAPY CEPHALOSPORIN/ ?QUINOLONE ALLERGIES PENDING C/S EMPIRIC MEROPENEM (TOLERATED IN PAST)
--- NOTE | 2019-09-20 16:30 | ECHO ---
Name: SCOTT LUO ANN Exam:Adult Echocardiogram Study Date: 09/20/2019 12:17 PM Age: 58 yrs Reason For Study: Assess EF Height: 70 in Weight: 260 lb BSA: 2.3 m2 MMode/2D Measurements & Calculations IVSd: 1.1 cm Ao root diam: 2.5 cm LVIDd: 3.8 cm LA dimension: 3.3 cm LVIDs: 2.7 cm ACS: 1.9 cm LVPWd: 1.4 cm EDV(Teich): 62.5 ml LVOT diam: 1.9 cm ESV(Teich): 27.1 ml Doppler Measurements & Calculations MV E max dylan: 89.5 cm/sec Ao V2 max: 194.1 cm/sec MV A max dylan: 116.5 cm/sec Ao max P.1 mmHg MV E/A: 0.77 Ao V2 mean: 136.7 cm/sec MV dec time: 0.17 sec Ao mean P.3 mmHg Ao V2 VTI: 33.2 cm ALEJANDRO(I,D): 2.1 cm2 ALEJANDRO(V,D): 1.4 cm2 LV V1 max P.9 mmHg SV(LVOT): 69.5 ml LV V1 mean P.9 mmHg LV V1 max: 98.7 cm/sec LV V1 mean: 83.1 cm/sec LV V1 VTI: 24.6 cm TR max dylan: 174.6 cm/sec Med Peak E' Dylan: 10.6 cm/sec TR max P.4 mmHg Med E/e': 8.4 Lat Peak E' Dylan: 9.6 cm/sec Lat E/e': 9.3 Procedure A complete two-dimensional transthoracic echocardiogram was performed (2D, M-mode, Doppler and color flow Doppler). Technically limited study. Left Ventricle The left ventricle is normal in size. Left ventricular systolic function is normal. Ejection Fraction = 55- 60%. No regional wall motion abnormalities noted. Right Ventricle The right ventricle is not well visualized. Atria The left atrial size is normal. Right atrium not well visualized. Mitral Valve There is mild mitral annular calcification. There is mild mitral regurgitation. Tricuspid Valve The tricuspid valve is normal in structure and function. No tricuspid regurgitation. Aortic Valve There is mild aortic sclerosis.;. No aortic regurgitation is present. Pulmonic Valve The pulmonic valve is not well visualized. Great Vessels The aortic root is normal size. Pericardium/Pleura There is no pericardial effusion. Interpretation Summary Technically limited study The left ventricle is normal in size. Left ventricular systolic function is normal. No regional wall motion abnormalities noted. Ejection Fraction = 55-60%. The right ventricle is not well visualized. The left atrial size is normal. Right atrium not well visualized. There is mild mitral annular calcification. There is mild mitral regurgitation. There is mild aortic sclerosis. There is no pericardial effusion. Kris Freeman MD 09/20/2019 04:30 PM
--- NOTE | 2019-09-20 16:57 | PN ---
Physical Exam: SUBJECTIVE: Patient seen and examined at the bedside. Stated that she continues to feel chills but overall feels better. States her appetite is not at baseline. Denies dysuria, hematuria, urgency, frequency. Denies cp, sob, abd pain, n/v/c/d, numbness, tingling. OBJECTIVE: Vital Signs Period Temp Pulse Resp BP Sys/Coker Pulse Ox Last 24 Hr 98.2 F-102.8 F 86-112 18-20 144-195/70-88 95-99 GENERAL: The patient is awake, alert, and fully oriented, in mild distress. HEAD: Normal with no signs of trauma. EYES: PERRL, extraocular movements intact, sclera anicteric, conjunctiva clear. ENT: Oropharynx clear without exudates, moist mucous membranes. NECK: Trachea midline, full range of motion, supple. LUNGS: Breath sounds equal, clear to auscultation bilaterally, no wheezes, no crackles, no accessory muscle use. HEART: Regular rate and rhythm, S1, S2 without murmur, rub or gallop. ABDOMEN: Soft, nontender, nondistended, normoactive bowel sounds, no guarding, no rebound, no masses. EXTREMITIES: 2+ pulses, warm, well-perfused, no edema. NEUROLOGICAL: Cranial nerves II through XII grossly intact. 5/5 muscle strength upper and lower extremities bilaterally. PSYCH: Normal mood, normal affect. SKIN: Warm, dry, normal turgor, no rashes or lesions noted. Laboratory Results - last 24 hr 09/20/19 09/20/19 09/20/19 00:46 00:46 00:46 WBC 11.0 H RBC 4.10 Hgb 12.8 Hct 39.9 MCV 97.3 H MCH 31.1 MCHC 32.0 RDW 14.7 Plt Count 198 MPV 10.6 Absolute Neuts (auto) 7.7 Neutrophils % 69.6 D Lymphocytes % 20.7 D Monocytes % 7.9 Eosinophils % 1.3 Basophils % 0.5 Nucleated RBC % 0 PT with INR 11.40 INR 0.97 PTT (Actin FS) 29.7 Sodium 142 Potassium 4.6 Chloride 106 Carbon Dioxide 29 Anion Gap 7 L BUN 11.3 Creatinine 1.3 Est GFR (CKD-EPI)AfAm 52.00 Est GFR (CKD-EPI)NonAf 44.87 POC Glucometer Random Glucose 110 H Lactic Acid Calcium 9.1 Phosphorus Magnesium Total Bilirubin 0.3 AST 26 ALT 22 Alkaline Phosphatase 113 Troponin I < 0.02 Total Protein 8.0 Albumin 3.5 Urine Color Urine Appearance Urine pH Ur Specific [place] Urine Protein Urine Glucose (UA) Urine Ketones Urine Blood Urine Nitrite Urine Bilirubin Urine Urobilinogen Ur Leukocyte Esterase Urine WBC (Auto) Urine RBC (Auto) Urine Casts (Auto) U Epithel Cells (Auto) Urine Bacteria (Auto) Influenza A (Rapid) Influenza B (Rapid) 09/20/19 09/20/19 09/20/19 00:48 01:20 03:20 WBC RBC Hgb Hct MCV MCH MCHC RDW Plt Count MPV Absolute Neuts (auto) Neutrophils % Lymphocytes % Monocytes % Eosinophils % Basophils % Nucleated RBC % PT with INR INR PTT (Actin FS) Sodium Potassium Chloride Carbon Dioxide Anion Gap BUN Creatinine Est GFR (CKD-EPI)AfAm Est GFR (CKD-EPI)NonAf POC Glucometer Random Glucose Lactic Acid 2.8 H* Calcium Phosphorus Magnesium Total Bilirubin AST ALT Alkaline Phosphatase Troponin I Total Protein Albumin Urine Color Yellow Urine Appearance Clear Urine pH 8.0 D Ur Specific [place] 1.015 Urine Protein Negative Urine Glucose (UA) Negative Urine Ketones Negative Urine Blood Negative Urine Nitrite Positive H Urine Bilirubin Negative Urine Urobilinogen 0.2 Ur Leukocyte Esterase 2+ H Urine WBC (Auto) 72 Urine RBC (Auto) 4 Urine Casts (Auto) 6 U Epithel Cells (Auto) 0.8 Urine Bacteria (Auto) 3201.4 Influenza A (Rapid) Negative Influenza B (Rapid) Negative 09/20/19 09/20/19 09/20/19 04:21 07:07 07:07 WBC 12.9 H RBC 3.63 Hgb 11.3 Hct 34.4 MCV 94.7 MCH 31.1 MCHC 32.8 RDW 14.5 Plt Count 193 MPV 9.7 Absolute Neuts (auto) Neutrophils % Lymphocytes % Monocytes % Eosinophils % Basophils % Nucleated RBC % PT with INR INR PTT (Actin FS) Sodium 141 Potassium 3.8 Chloride 108 H Carbon Dioxide 27 Anion Gap 6 L BUN 11.9 Creatinine 1.2 Est GFR (CKD-EPI)AfAm 57.29 Est GFR (CKD-EPI)NonAf 49.43 POC Glucometer Random Glucose 143 H Lactic Acid 2.6 H* Calcium 8.4 L Phosphorus 3.7 Magnesium 2.1 Total Bilirubin AST ALT Alkaline Phosphatase Troponin I Total Protein Albumin Urine Color Urine Appearance Urine pH Ur Specific [place] Urine Protein Urine Glucose (UA) Urine Ketones Urine Blood Urine Nitrite Urine Bilirubin Urine Urobilinogen Ur Leukocyte Esterase Urine WBC (Auto) Urine RBC (Auto) Urine Casts (Auto) U Epithel Cells (Auto) Urine Bacteria (Auto) Influenza A (Rapid) Influenza B (Rapid) 09/20/19 09/20/19 09/20/19 08:36 09:24 11:52 WBC RBC Hgb Hct MCV MCH MCHC RDW Plt Count MPV Absolute Neuts (auto) Neutrophils % Lymphocytes % Monocytes % Eosinophils % Basophils % Nucleated RBC % PT with INR INR PTT (Actin FS) Sodium Potassium Chloride Carbon Dioxide Anion Gap BUN Creatinine Est GFR (CKD-EPI)AfAm Est GFR (CKD-EPI)NonAf POC Glucometer 88 84 Random Glucose Lactic Acid 1.4 Calcium Phosphorus Magnesium Total Bilirubin AST ALT Alkaline Phosphatase Troponin I Total Protein Albumin Urine Color Urine Appearance Urine pH Ur Specific [place] Urine Protein Urine Glucose (UA) Urine Ketones Urine Blood Urine Nitrite Urine Bilirubin Urine Urobilinogen Ur Leukocyte Esterase Urine WBC (Auto) Urine RBC (Auto) Urine Casts (Auto) U Epithel Cells (Auto) Urine Bacteria (Auto) Influenza A (Rapid) Influenza B (Rapid) Active Medications Generic Name Dose Route Start Last Admin Trade Name Freq PRN Reason Stop Dose Admin Acetaminophen 650 mg 09/20/19 05:15 09/20/19 14:32 Tylenol - PO 650 mg Q4H PRN Administration FEVER Enoxaparin Sodium 40 mg 09/20/19 10:00 09/20/19 09:28 Lovenox - SQ Not Given DAILY VANESA Sodium Chloride 1,000 mls @ 100 mls/hr 09/20/19 09:34 09/20/19 09:36 Normal Saline - IV 100 mls/hr ASDIR VANESA Administration Meropenem 1 gm/ Dextrose 100 mls @ 200 mls/hr 09/20/19 18:00 IVPB Q8H-IV VANESA Insulin Aspart 1 vial 09/20/19 07:00 09/20/19 11:54 Novolog Vial Sliding Scale - SQ Not Given ACHS VANESA Protocol ASSESSMENT/PLAN: Makenzie Granados is a 58 year old female with a past medical history of DM (on ozempic), HTN, RA (on xaltran), HLD, [place] (2004 without stent placement), who presents to the ED c/o fever, chills, myalgia admitted for bacteremia. Sepsis secondary to UTI - immunocompromised patient on methotrexate - WBC 12.9, febrile to 102.8 - likely source UTI - UA + nitrites, 2+ LE, 72 WBC, >3000 bacteria - Ucx pending - Bcx growing gram negative rods - ID consulted, recs appreciated - on ertapenem - continue IVF 100 cc/hr - lactic acidosis 2.8-->2.6-->1.4 HTN - continue home meds, Toprol - holding losartan in setting of sepsis and bacteremia CAD hx - continue home Toprol, aspirin - echo showing EF 55-60%, no wall abnormalities, noted mild mitral annular calcification, mild aortic sclerosis, mild mitral regurg - w/ hx of CAD and HLD, would likely benefit from statin, will recommend to follow up with outpatient provider DM - ISS - BGM - A1c - hold home meds DVT PPx - Lovenox 40SQ daily FEN - NS at 100cc/hr - continue to monitor electrolytes and replete as necessary - Sodium/Diabetic Diet Dispo - continue to monitor on Med-surg Visit type - Emergency Visit Emergency Visit: Yes ED Registration Date: 09/20/19 Care time: The patient presented to the Emergency Department on the above date and was hospitalized for further evaluation of their emergent condition. - New Patient This patient is new to me today: Yes Date on this admission: 09/20/19 - Critical Care Critical Care patient: No
[2019-09-20] MEDS ORDERED: ALBUTEROL SO4 8 GM HFA INHALER IH PRN ×2 (17:11→17:14)
--- NOTE | 2019-09-20 17:33 | CONS ---
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 History was obtained from the chart as well as the patient. She has a long history of rheumatoid arthritis and had been on prednisone for many years. Presently on methotrexate and most recently on Xeljanz. She takes that on a nightly basis. On September 19, 2019, she had an abrupt onset of shaking chills and fever to 103.7 associated with generalized weakness, general arthralgias, and myalgias. She presented to the emergency room where her temperature was 102.8. She was empirically treated with antibiotics. Blood cultures were now positive gram-negative rods in 1 anaerobic bottle. Patient denies any localizing signs or symptoms. She denies any dysuria, hematuria. She does have polyuria, which is chronic in nature and she attributes to prediabetes. She denies any chest pain, shortness of breath, cough, or sputum production. No vomiting or diarrhea. No skin infections. She denies any ill contacts. She has not been working for the past 2 weeks due to personal reasons. She lives at home with her who has been well. PAST MEDICAL HISTORY: Positive for longstanding rheumatoid arthritis, hypertension, hyperlipidemia, coronary artery disease, myocardial infarction. PAST SURGICAL HISTORY: Status post ORIF right ankle, right total knee replacement, gastric sleeve. ALLERGIES: CEPHALEXIN and LEVAQUIN. Patient developed a rash with CEPHALEXIN and localized erythema at the IV site when receiving LEVAQUIN. MEDICATIONS: Tylenol, Lovenox, Protonix. 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 Former smoker. SYSTEMS REVIEW: Neurologic: No loss of consciousness, seizure activity, focal weakness. Cardiac: Negative chest pain or palpitations. Respiratory: Negative cough or sputum production. Gastrointestinal: Negative vomiting or diarrhea. Genitourinary: Negative for urinary tract infection. LABORATORY DATA: White count 12.9, neutrophils 69%, lymphocytes 20, monocytes 7, hematocrit 34.4, platelets 193, BUN 11, creatinine 1.2, lactic acid 2.8. Urinalysis 72 white cells. Influenza swab negative. PHYSICAL EXAMINATION: General: She is awake and alert. Supine in bed on stretcher in the emergency room. Patient is obese. Vital Signs: Temperature 101.8, maximum temperature 102.8, blood pressure 154/70, pulse 93 regular, respirations 19 per minute. HEENT: Sclerae anicteric. Heart: Sounds S1, S2. Lungs: Scattered rhonchi and some crepitations at the bases bilaterally. Abdomen: Obese. Soft, nontender. No right upper quadrant or suprapubic tenderness elicited. Extremities: 1+ edema. IMPRESSION: 1. Gram-negative bacteremia/sepsis, unclear source. 2. Urinary tract infection, rule out sepsis secondary urinary tract infection. 3. Lactic acidosis. 4. Rheumatoid arthritis on immunosuppressive therapy. 5. CEPHALOSPORIN and possible QUINOLONE allergy. PLAN: Await culture results. Empiric antibiotic coverage with Meropenem pending final identification. Based on the identification of the isolet, may need to image the abdomen and pelvis to rule out an occult GI or focus. Thank you for the kind referral. MARINA JAIME M.D. LUIS [id number]
[2019-09-20] MEDS ORDERED: MEROPENEM 1 GM VIAL (RESTRICTED TO ID) IVPB ONE (18:09)
[2019-09-20] MEDS: MEROPENEM 1 GM in DEXTROSE 5%-WATER 100 ML IVPB SCH (18:15)
[2019-09-21] MEDS ORDERED: DEXTROSE 5%-WATER 100 ML IVPB ONE ×4 (01:33→17:08)
[2019-09-21] MEDS ORDERED: MEROPENEM 1 GM VIAL (RESTRICTED TO ID) IVPB ONE ×4 (01:33→17:07)
[2019-09-21] MEDS: MEROPENEM 1 GM in DEXTROSE 5%-WATER 100 ML IVPB SCH ×3 (02:09→17:05)
[2019-09-21] MEDS: ACETAMINOPHEN 325 MG TABLET (FP) PO PRN ×2 (02:10→10:39)
[2019-09-21] MEDS: INSULIN SLIDING SCALE (NOVOLOG) 1 VIAL SQ SCH ×4 (06:12→21:39)
[2019-09-21 08:30] LABS: HEMATOCRIT 34.8 % (32.4-45.2); HEMOGLOBIN 11.3 GM/dL (10.7-15.3); MCH 31.3 pg (25.7-33.7); MCHC 32.6 g/dl (32.0-36.0); MEAN CELL VOLUME 95.9 fl (80-96); MEAN PLT VOLUME 10.4 fl (7.5-11.1); PLATELET COUNT 171 K/MM3 (134-434); RBC 3.63 M/mm3 (3.60-5.2); RDW 14.6 % (11.6-15.6); WHITE BLOOD COUNT 14.1 K/mm3 (4.0-10.0)
[2019-09-21 08:55] LABS: BLOOD UREA NITROGEN 13.6 mg/dL (7-18); CALCIUM 8.3 mg/dL (8.5-10.1); CREATININE 1.2 mg/dL (0.55-1.3); POTASSIUM 3.6 mmol/L (3.5-5.1)
[2019-09-21] MEDS: SODIUM CHLORIDE 1,000 ML IV SCH (09:43)
[2019-09-21] MEDS: PANTOPRAZOLE 40 MG TABLET (FP) PO SCH (09:56)
[2019-09-21] MEDS: FOLIC ACID 1 MG TABLET (FP) PO SCH (09:56)
[2019-09-21] MEDS: ASPIRIN 81 MG CHEWABLE TABLETS PO SCH (09:57)
[2019-09-21] MEDS: ENOXAPARIN NA (PORCINE) 40 MG/0.4 ML DISP.SYRIN SQ SCH (09:57)
[2019-09-21] MEDS ORDERED: TOFACITINIB CITRATE 11 MG PO SCH (10:00)
[2019-09-21] MEDS ORDERED: LOSARTAN POTASSIUM 50 MG TABLET (FP) PO SCH (10:00)
[2019-09-21] MEDS ORDERED: FLU VACCINE QUAD 60 MCG/0.5 ML (MDV 19-20) IM ONE (10:00)
--- NOTE | 2019-09-21 13:26 | PN ---
Physical Exam: SUBJECTIVE: Patient seen and examined at the bedside. Patient stated that she is doing better. Endorsed some chills overnight. Denied chest pain, sob, abd pain, n/v/c/d, fevers, dysuria, hematuria. OBJECTIVE: Vital Signs Period Temp Pulse Resp BP Sys/Coker Pulse Ox Last 24 Hr 98.1 F-101.8 F 90-107 18-32 119-155/56-95 96-98 GENERAL: The patient is awake, alert, and fully oriented, in no acute distress. HEAD: Normal with no signs of trauma. EYES: PERRL, extraocular movements intact, sclera anicteric, conjunctiva clear. ENT: Oropharynx clear without exudates, moist mucous membranes. NECK: Trachea midline, full range of motion, supple. LUNGS: Breath sounds equal, clear to auscultation bilaterally, no wheezes, no crackles, no accessory muscle use. HEART: Regular rate and rhythm, S1, S2 without murmur, rub or gallop. ABDOMEN: Soft, nontender, nondistended, normoactive bowel sounds, no guarding, no rebound, no masses. EXTREMITIES: 2+ pulses, warm, well-perfused, no edema. NEUROLOGICAL: Cranial nerves II through XII grossly intact. 5/5 muscle strength upper and lower extremities bilaterally. PSYCH: Normal mood, normal affect. SKIN: Warm, dry, normal turgor, no rashes or lesions noted. Laboratory Results - last 24 hr 09/20/19 09/20/19 09/21/19 17:24 22:09 06:10 WBC RBC Hgb Hct MCV MCH MCHC RDW Plt Count MPV Sodium Potassium Chloride Carbon Dioxide Anion Gap BUN Creatinine Est GFR (CKD-EPI)AfAm Est GFR (CKD-EPI)NonAf POC Glucometer 178 107 185 Random Glucose Hemoglobin A1c % Calcium 09/21/19 09/21/19 09/21/19 07:40 07:40 07:40 WBC 14.1 H RBC 3.63 Hgb 11.3 Hct 34.8 MCV 95.9 MCH 31.3 MCHC 32.6 RDW 14.6 Plt Count 171 MPV 10.4 Sodium 143 Potassium 3.6 Chloride 110 H Carbon Dioxide 27 Anion Gap 6 L BUN 13.6 Creatinine 1.2 Est GFR (CKD-EPI)AfAm 57.29 Est GFR (CKD-EPI)NonAf 49.43 POC Glucometer Random Glucose 119 H Hemoglobin A1c % 5.6 Calcium 8.3 L 09/21/19 12:01 WBC RBC Hgb Hct MCV MCH MCHC RDW Plt Count MPV Sodium Potassium Chloride Carbon Dioxide Anion Gap BUN Creatinine Est GFR (CKD-EPI)AfAm Est GFR (CKD-EPI)NonAf POC Glucometer 130 Random Glucose Hemoglobin A1c % Calcium Active Medications Generic Name Dose Route Start Last Admin Trade Name Freq PRN Reason Stop Dose Admin Acetaminophen 650 mg 09/20/19 05:15 09/21/19 10:39 Tylenol - PO 650 mg Q4H PRN Administration FEVER Albuterol Sulfate 2 puff 09/20/19 17:11 Ventolin Hfa Inhaler - IH Q4H PRN SHORTNESS OF BREATH Albuterol Sulfate 1 puff 09/20/19 17:14 Ventolin Hfa Inhaler - IH Q4H PRN SHORTNESS OF BREATH Aspirin 81 mg 09/21/19 10:00 09/21/19 09:57 Asa - PO 81 mg DAILY VANESA Administration Enoxaparin Sodium 40 mg 09/20/19 10:00 09/21/19 09:57 Lovenox - SQ Not Given DAILY VANESA Folic Acid 1 mg 09/21/19 10:00 09/21/19 09:56 Folic Acid - PO 1 mg DAILY VANESA Administration Meropenem 1 gm/ Dextrose 100 mls @ 200 mls/hr 09/20/19 18:00 09/21/19 09:57 IVPB 200 mls/hr Q8H-IV VANESA Administration Insulin Aspart 1 vial 09/20/19 07:00 09/21/19 12:02 Novolog Vial Sliding Scale - SQ Not Given ACHS [facility] Protocol Losartan Potassium 100 mg 09/21/19 10:00 09/21/19 09:56 Cozaar - PO 100 mg DAILY VANESA Administration Methotrexate 10 mg 09/25/19 10:00 Mexate - PO Sa@1000 VANESA Metoprolol Succinate 100 mg 09/21/19 10:00 09/21/19 09:56 Toprol Xl - PO 100 mg DAILY VANESA Administration Non-Formulary Medication 11 mg 09/21/19 10:00 Tofacitinib Citrate [Xeljanz Xr] PO DAILY VANESA Pantoprazole Sodium 40 mg 09/21/19 10:00 09/21/19 09:56 Protonix - PO 40 mg DAILY VANESA Administration ASSESSMENT/PLAN: Makenzie Granados is a 58 year old female with a past medical history of DM (on ozempic), HTN, RA (on xaltran), HLD, [place] (2004 without stent placement), who presents to the ED c/o fever, chills, myalgia admitted for bacteremia. Sepsis secondary to UTI - immunocompromised patient on methotrexate - WBC 12.9, febrile to 102.8, continue to monitor - likely source UTI - UA + nitrites, 2+ LE, 72 WBC, >3000 bacteria - Ucx showing lactose fermenting GNB - Bcx growing lactose fermenting GNB - ID consulted, recs appreciated - on meropenem, pending speciation - lactic acidosis 2.8-->2.6-->1.4, resolved - abd/pelvis CT to examine for other source of infection HTN - continue home meds, Toprol - holding losartan in setting of sepsis and bacteremia CAD hx - continue home Toprol, aspirin - echo showing EF 55-60%, no wall abnormalities, noted mild mitral annular calcification, mild aortic sclerosis, mild mitral regurg - w/ hx of CAD and HLD, would likely benefit from statin, will recommend to follow up with outpatient provider DM - ISS - BGM - A1c 5.6 - hold home meds DVT PPx - Lovenox 40SQ daily FEN - NS at 100cc/hr - continue to monitor electrolytes and replete as necessary - Sodium/Diabetic Diet Dispo - continue to monitor on Med-surg Visit type - Emergency Visit Emergency Visit: Yes ED Registration Date: 09/20/19 Care time: The patient presented to the Emergency Department on the above date and was hospitalized for further evaluation of their emergent condition. - New Patient This patient is new to me today: No - Critical Care Critical Care patient: No
--- NOTE | 2019-09-21 14:08 | PN ---
Teaching Attending Note Name of Resident: Zack Mcgovern ATTENDING PHYSICIAN STATEMENT I saw and evaluated the patient. I reviewed the resident's note and discussed the case with the resident. I agree with the resident's findings and plan as documented. SUBJECTIVE: Patient has no complaints. OBJECTIVE: Vital Signs Period Temp Pulse Resp BP Sys/Coker Pulse Ox Last 24 Hr 98.1 F-101.8 F 90-107 18-32 119-155/56-95 96-98 HEART: S1S2, RRR LUNGS: Clear ABDOMEN: Obese, soft, non-tender, non-distended, normal BS EXTREMITIES: No edema Laboratory Results - last 24 hr 09/20/19 09/20/19 09/21/19 17:24 22:09 06:10 WBC RBC Hgb Hct MCV MCH MCHC RDW Plt Count MPV Sodium Potassium Chloride Carbon Dioxide Anion Gap BUN Creatinine Est GFR (CKD-EPI)AfAm Est GFR (CKD-EPI)NonAf POC Glucometer 178 107 185 Random Glucose Hemoglobin A1c % Calcium 09/21/19 09/21/19 09/21/19 07:40 07:40 07:40 WBC 14.1 H RBC 3.63 Hgb 11.3 Hct 34.8 MCV 95.9 MCH 31.3 MCHC 32.6 RDW 14.6 Plt Count 171 MPV 10.4 Sodium 143 Potassium 3.6 Chloride 110 H Carbon Dioxide 27 Anion Gap 6 L BUN 13.6 Creatinine 1.2 Est GFR (CKD-EPI)AfAm 57.29 Est GFR (CKD-EPI)NonAf 49.43 POC Glucometer Random Glucose 119 H Hemoglobin A1c % 5.6 Calcium 8.3 L 09/21/19 12:01 WBC RBC Hgb Hct MCV MCH MCHC RDW Plt Count MPV Sodium Potassium Chloride Carbon Dioxide Anion Gap BUN Creatinine Est GFR (CKD-EPI)AfAm Est GFR (CKD-EPI)NonAf POC Glucometer 130 Random Glucose Hemoglobin A1c % Calcium Current Medications Generic Name Dose Route Start Last Admin Trade Name Freq PRN Reason Stop Dose Admin Acetaminophen 650 mg 09/20/19 05:15 09/21/19 10:39 Tylenol - PO 650 mg Q4H PRN Administration FEVER Albuterol Sulfate 2 puff 09/20/19 17:11 Ventolin Hfa Inhaler - IH Q4H PRN SHORTNESS OF BREATH Albuterol Sulfate 1 puff 09/20/19 17:14 Ventolin Hfa Inhaler - IH Q4H PRN SHORTNESS OF BREATH Aspirin 81 mg 09/21/19 10:00 09/21/19 09:57 Asa - PO 81 mg DAILY VANESA Administration Enoxaparin Sodium 40 mg 09/20/19 10:00 09/21/19 09:57 Lovenox - SQ Not Given DAILY VANESA Folic Acid 1 mg 09/21/19 10:00 09/21/19 09:56 Folic Acid - PO 1 mg DAILY VANESA Administration Meropenem 1 gm/ Dextrose 100 mls @ 200 mls/hr 09/20/19 18:00 09/21/19 09:57 IVPB 200 mls/hr Q8H-IV VANESA Administration Insulin Aspart 1 vial 09/20/19 07:00 09/21/19 12:02 Novolog Vial Sliding Scale - SQ Not Given ACHS [facility] Protocol Losartan Potassium 100 mg 09/21/19 10:00 09/21/19 09:56 Cozaar - PO 100 mg DAILY VANESA Administration Methotrexate 10 mg 09/25/19 10:00 Mexate - PO Sa@1000 VANESA Metoprolol Succinate 100 mg 09/21/19 10:00 09/21/19 09:56 Toprol Xl - PO 100 mg DAILY VANESA Administration Non-Formulary Medication 11 mg 09/21/19 10:00 Tofacitinib Citrate [Xeljanz Xr] PO DAILY VANESA Pantoprazole Sodium 40 mg 09/21/19 10:00 09/21/19 09:56 Protonix - PO 40 mg DAILY VANESA Administration ASSESSMENT AND PLAN: 58 year old female with history of HTN, RA on Tofacitinib/MTX, HLD, CAD s/p RI 2004, s/p gastric sleeve bariatric surgery, s/p ORIF R ankle, s/p R Knee replacement, presents with fever/chills/generalized myalgia. No cough/sputum/ dysuria/abdominal pain/nausea/vomiting/diarrhea. 1. Sepsis (fever, leukocytosis, tachycardia) secondary to UTI with gram negative bacteremia - Lactose fermenting gram neg rods growing in urine culture, 1 of 2 blood cultures - Continue meropenem - Follow up cultures - CTAP ordered 2. HTN - Continue Cozaar, Toprol XL 3. RA - On Xeljanz, methotrexate 4. CAD, history of RI - Continue aspirin, Toprol XL 5. Type 2 DM - HbA1c 5.6 - Continue Novolog sliding scale. 6. Obesity with BMI 37.5
--- NOTE | 2019-09-21 16:14 | PN ---
Progress Note, Physician History of Present Illness: NO FOCAL COMPLAINT DENIES DYSURIA. NO C/O ABDOMINAL PAIN N/V FEBRILE 101.8 WBC INC 14.1 BC, URINE C/S LF POSSIBLE E COLI - Current Medication List Current Medications: Active Medications Acetaminophen (Tylenol -) 650 mg PO Q4H PRN PRN Reason: FEVER Last Admin: 09/21/19 10:39 Dose: 650 mg Albuterol Sulfate (Ventolin Hfa Inhaler -) 2 puff IH Q4H PRN PRN Reason: SHORTNESS OF BREATH Albuterol Sulfate (Ventolin Hfa Inhaler -) 1 puff IH Q4H PRN PRN Reason: SHORTNESS OF BREATH Aspirin (Asa -) 81 mg PO DAILY [facility] Last Admin: 09/21/19 09:57 Dose: 81 mg Enoxaparin Sodium (Lovenox -) 40 mg SQ DAILY [facility] Last Admin: 09/21/19 09:57 Dose: Not Given Folic Acid (Folic Acid -) 1 mg PO DAILY [facility] Last Admin: 09/21/19 09:56 Dose: 1 mg Meropenem 1 gm/ Dextrose 100 mls @ 200 mls/hr IVPB Q8H-IV [facility] Last Admin: 09/21/19 09:57 Dose: 200 mls/hr Insulin Aspart (Novolog Vial Sliding Scale -) 1 vial SQ ACHS [facility]; Protocol Last Admin: 09/21/19 12:02 Dose: Not Given Losartan Potassium (Cozaar -) 100 mg PO DAILY [facility] Last Admin: 09/21/19 09:56 Dose: 100 mg Methotrexate (Mexate -) 10 mg PO Sa@1000 [facility] Metoprolol Succinate (Toprol Xl -) 100 mg PO DAILY [facility] Last Admin: 09/21/19 09:56 Dose: 100 mg Non-Formulary Medication (Tofacitinib Citrate [Xeljanz Xr]) 11 mg PO DAILY [facility] Pantoprazole Sodium (Protonix -) 40 mg PO DAILY [facility] Last Admin: 09/21/19 09:56 Dose: 40 mg - Objective Vital Signs: Vital Signs Temperature 98.8 F 09/21/19 14:43 Pulse Rate 79 09/21/19 14:43 Respiratory Rate 20 09/21/19 14:43 Blood Pressure 110/66 09/21/19 14:43 O2 Sat by Pulse Oximetry (%) 96 09/20/19 21:39 Constitutional: Yes: No Distress Eyes: Yes: Conjunctiva Clear Cardiovascular: Yes: Regular Rate and Rhythm, S1, S2 Respiratory: Yes: CTA Bilaterally Gastrointestinal: Yes: Normal Bowel Sounds, Soft, Abdomen, Obese. No: Tenderness Edema: No Labs: CBC, BMP 09/21/19 07:40 09/21/19 07:40 INR, PTT INR 0.97 (0.83-1.09) 09/20/19 00:46 Assessment/Plan GRAM NEGATIVE BACTEREMIA/ SEPSIS ? SOURCE ? GI FEVER/ LEUKOCYTOSIS RA ON IMMUNOSUPPRESSIVE THERAPY LACTIC ACIDOSIS CEPHALOSPORIN ? QUINOLONE ALLERGIES AWAIT C/S CT ABDOMEN /PELVIS CONTINUE MEROPENEM
[2019-09-21] MEDS: ACETAMINOPHEN 500 MG TABLET (FP) PO PRN (18:35)
[2019-09-22] MEDS ORDERED: DEXTROSE 5%-WATER 100 ML IVPB ONE ×3 (02:25→17:30)
[2019-09-22] MEDS ORDERED: MEROPENEM 1 GM VIAL (RESTRICTED TO ID) IVPB ONE ×3 (02:25→17:30)
[2019-09-22] MEDS: MEROPENEM 1 GM in DEXTROSE 5%-WATER 100 ML IVPB SCH ×3 (02:33→18:02)
[2019-09-22] MEDS: ACETAMINOPHEN 500 MG TABLET (FP) PO PRN ×2 (02:39→10:51)
[2019-09-22] MEDS ORDERED: PT OWN MED DRAWER 7, Y5N ONE (05:54)
[2019-09-22] MEDS: INSULIN SLIDING SCALE (NOVOLOG) 1 VIAL SQ SCH ×4 (06:17→22:27)
[2019-09-22 07:46] LABS: HEMATOCRIT 32.2 % (32.4-45.2); HEMOGLOBIN 10.5 GM/dL (10.7-15.3); MCHC 32.6 g/dl (32.0-36.0); MEAN CELL VOLUME 95.2 fl (80-96); MEAN PLT VOLUME 10.2 fl (7.5-11.1); PLATELET COUNT 163 K/MM3 (134-434); RBC 3.38 M/mm3 (3.60-5.2); RDW 14.3 % (11.6-15.6); WHITE BLOOD COUNT 11.8 K/mm3 (4.0-10.0)
[2019-09-22 08:21] LABS: BLOOD UREA NITROGEN 14.6 mg/dL (7-18); CALCIUM 8.3 mg/dL (8.5-10.1); POTASSIUM 3.7 mmol/L (3.5-5.1)
[2019-09-22] MEDS: ASPIRIN 81 MG CHEWABLE TABLETS PO SCH (09:34)
[2019-09-22] MEDS: PANTOPRAZOLE 40 MG TABLET (FP) PO SCH (09:34)
[2019-09-22] MEDS: FOLIC ACID 1 MG TABLET (FP) PO SCH (09:34)
[2019-09-22] MEDS: ENOXAPARIN NA (PORCINE) 40 MG/0.4 ML DISP.SYRIN SQ SCH (09:34)
[2019-09-22] MEDS ORDERED: SUMAtriptan SUCCINATE 25 MG TABLET PO ONE (11:50)
--- NOTE | 2019-09-22 12:53 | CONSULT ---
Consult - text type - Consultation Consultation Note: ORTHOPEDIC SURGERY CONSULTATION NOTE Department of Orthopedic Surgery HISTORY OF PRESENT ILLNESS Ms. Granados is a 58 year old female who presents to [facility] with fevers and positive UTI with bacteremia. The orthopedic service was consulted for right knee pain. The patient denies any injury. The patient states that her right knee pain has resolved since yesterday and has no pain currently. Denies any other injuries. Denies numbness, tingling or other constitutional complaints. The patient states she "feels a lot better" since yesterday. Denies tobacco use, drug use, alcohol abuse. The patient lives with family and uses no assistive devices at baseline. FAMILY HISTORY non-contributory REVIEW OF SYMPTOMS A twelve-point review of systems was performed and was negative except as noted in HPI. PHYSICAL EXAM Constitutional: Alert and oriented to person, place, and time. Appears well- developed and well-nourished. No acute distress, appropriate mood and affect. Right Lower Extremity: Skin warm, dry, and intact; no lesions, rashes or ulcers noted. No erythema or warmth. There is a healed incision over the anterior portion of the knee sequela of total knee replacement with no signs of infection. Muscle mass equal and symmetric to contralateral side. No atrophy noted. No masses or effusions noted. No tenderness to palpation; nontender throughout rest of extremity. No cords or calf tenderness. No significant calf/ ankle edema. Full passive and active ROM, free from pain. Joints stable with no pathologic laxity. EHL/TA/GS motor intact; SILT distally; 2+ DP pulses; Cap refill brisk. Tone and reflexes normal. Left Lower Extremity: Skin warm, dry, and intact; no lesions, rashes or ulcers noted. Muscle mass equal and symmetric to contralateral side. No atrophy noted. No masses or effusions noted. No tenderness to palpation; nontender throughout rest of extremity. No cords or calf tenderness; No significant calf/ankle edema. Full passive and active ROM, free from pain. Joints stable with no pathologic laxity. EHL/TA/GS motor intact; SILT distally; 2+ DP pulses; Cap refill brisk. Tone and reflexes normal. Past Medical History Cardio/Vascular HTN,KS Pulmonary COPD,Sleep Apnea,Other Rheumatology Rheumatoid Arthritis Endocrine Diabetes Mellitus Past Surgical History Past Surgical History Bariatric Surgery Social History Smoking history Former smoker Aproximately how many 30 cigarettes per day If you are a former smoker, 2008 when did you quit? Hx Alcohol Use No History of Substance Use None History of Recent Travel No Allergies Allergy/AdvReac Type Severity Reaction Status Date / Time cephalexin monohydrate Allergy Rash Verified 09/20/19 00:20 [From Keflex] levofloxacin [From Levaquin] Allergy Rash Verified 09/20/19 00:20 Active Medications Generic Name Dose Route Start Last Admin Trade Name Freq PRN Reason Stop Dose Admin Acetaminophen 1,000 mg 09/21/19 16:36 09/22/19 10:51 Tylenol - PO 1,000 mg Q6H PRN Administration PAIN LEVEL 6-10 Albuterol Sulfate 2 puff 09/20/19 17:11 Ventolin Hfa Inhaler - IH Q4H PRN SHORTNESS OF BREATH Albuterol Sulfate 1 puff 09/20/19 17:14 Ventolin Hfa Inhaler - IH Q4H PRN SHORTNESS OF BREATH Aspirin 81 mg 09/21/19 10:00 09/22/19 09:34 Asa - PO 81 mg DAILY VANESA Administration Enoxaparin Sodium 40 mg 09/20/19 10:00 09/22/19 09:34 Lovenox - SQ Not Given DAILY VANESA Folic Acid 1 mg 09/21/19 10:00 09/22/19 09:34 Folic Acid - PO 1 mg DAILY VANESA Administration Meropenem 1 gm/ Dextrose 100 mls @ 200 mls/hr 09/20/19 18:00 09/22/19 10:46 IVPB 200 mls/hr Q8H-IV VANESA Administration Insulin Aspart 1 vial 09/20/19 07:00 09/22/19 06:17 Novolog Vial Sliding Scale - SQ Not Given ACHS [facility] Protocol Losartan Potassium 100 mg 09/21/19 10:00 09/21/19 09:56 Cozaar - PO 100 mg DAILY VANESA Administration Methotrexate 10 mg 09/25/19 10:00 Mexate - PO Sa@1000 VANESA Metoprolol Succinate 100 mg 09/21/19 10:00 09/22/19 09:34 Toprol Xl - PO 100 mg DAILY VANESA Administration Non-Formulary Medication 11 mg 09/21/19 10:00 Tofacitinib Citrate [Xeljanz Xr] PO DAILY [facility] Pantoprazole Sodium 40 mg 09/21/19 10:00 09/22/19 09:34 Protonix - PO 40 mg DAILY VANESA Administration Vital Signs (last) Temp Pulse Resp BP Pulse Ox 98.9 F 81 18 141/67 96 09/22/19 10:00 09/22/19 10:00 09/22/19 10:00 09/22/19 10:00 09/21/19 21:00 Intake and Output 09/20/19 09/21/19 09/22/19 23:59 23:59 23:59 Intake Total 2850 100 Balance 2850 100 Intake: IV 1400 Normal Saline - 1,000 ml 1400 @ 100 mls/hr IV ASDIR VANESA Rx#:[id number] IVPB 200 Oral 1250 100 Other: Voiding Method Toilet Toilet # Unmeasured Voids Void 1 Bowel Movement No Weight 260 lb 261 lb 6 oz Height 5 ft 10 in 5 ft 10 in Body Mass Index (BMI) 37.3 37.5 Weight Measurement Method Standing Scale Weight Measurement Method Est/Stated by Patient Laboratory 09/22/19 07:20 09/22/19 07:20 PT with INR 11.40 SEC (9.7-13.0) 09/20/19 00:46 PTT (Actin FS) 29.7 SECONDS (25.2-36.5) 09/20/19 00:46 ASSESSMENT AND PLAN Ms. Granados is a 58 year old female presenting with resolved knee pain. We have reviewed the imaging and clinical findings in detail, as well as their potential implications. After appropriate informed discussion, we agreed on the following plan: 1. Pain Control 2. DVT ppx 3. WBAT/ PT Daily 4. No signs of infection or septic joint 5. Continue medical management (iv abx etc) 6. No Further orthopedic intervention at this time All questions were answered. Thank you for involving our team in the care of this patient. Please have patient follow up with their primary orthopedic joint surgeon at [facility] after discharge.
--- NOTE | 2019-09-22 15:50 | PN ---
Physical Exam: SUBJECTIVE: Patient seen and examined at the bedside. Stated she is doing better , does not have any more rigors, fevers, or knee pain. States she is ambulating well, and endorses good appetite. States she continues to have some diarrhea after the contrast given yesterday but is resolving. Denies cp, sob, abd pain, back pain, n/v, fever, chills, numbness, tinging, dysuria, hematuria. OBJECTIVE: Vital Signs Period Temp Pulse Resp BP Sys/Coker Pulse Ox Last 24 Hr 98.4 F-101.5 F 66-87 18-20 106-145/65-85 96-97 GENERAL: The patient is awake, alert, and fully oriented, in no acute distress. HEAD: Normal with no signs of trauma. EYES: PERRL, extraocular movements intact, sclera anicteric, conjunctiva clear. ENT: Oropharynx clear without exudates, moist mucous membranes. NECK: Trachea midline, full range of motion, supple. LUNGS: Breath sounds equal, clear to auscultation bilaterally, no wheezes, no crackles, no accessory muscle use. HEART: Regular rate and rhythm, S1, S2 without murmur, rub or gallop. ABDOMEN: Soft, nontender, nondistended, normoactive bowel sounds, no guarding, no rebound, no masses. EXTREMITIES: 2+ pulses, warm, well-perfused, no edema. NEUROLOGICAL: Cranial nerves II through XII grossly intact. 5/5 muscle strength upper and lower extremities bilaterally. PSYCH: Normal mood, normal affect. SKIN: Warm, dry, normal turgor, no rashes or lesions noted. Laboratory Results - last 24 hr 09/21/19 09/21/19 09/22/19 17:23 21:29 06:14 WBC RBC Hgb Hct MCV MCH MCHC RDW Plt Count MPV Sodium Potassium Chloride Carbon Dioxide Anion Gap BUN Creatinine Est GFR (CKD-EPI)AfAm Est GFR (CKD-EPI)NonAf POC Glucometer 93 102 86 Random Glucose Calcium 09/22/19 09/22/19 09/22/19 07:20 07:20 11:20 WBC 11.8 H RBC 3.38 L Hgb 10.5 L Hct 32.2 L MCV 95.2 MCH 31.0 MCHC 32.6 RDW 14.3 Plt Count 163 MPV 10.2 Sodium 141 Potassium 3.7 Chloride 109 H Carbon Dioxide 26 Anion Gap 7 L BUN 14.6 Creatinine 1.0 Est GFR (CKD-EPI)AfAm 71.41 Est GFR (CKD-EPI)NonAf 61.62 POC Glucometer 92 Random Glucose 93 Calcium 8.3 L Active Medications Generic Name Dose Route Start Last Admin Trade Name Freq PRN Reason Stop Dose Admin Acetaminophen 1,000 mg 09/21/19 16:36 09/22/19 10:51 Tylenol - PO 1,000 mg Q6H PRN Administration PAIN LEVEL 6-10 Albuterol Sulfate 2 puff 09/20/19 17:11 Ventolin Hfa Inhaler - IH Q4H PRN SHORTNESS OF BREATH Albuterol Sulfate 1 puff 09/20/19 17:14 Ventolin Hfa Inhaler - IH Q4H PRN SHORTNESS OF BREATH Aspirin 81 mg 09/21/19 10:00 09/22/19 09:34 Asa - PO 81 mg DAILY VANESA Administration Enoxaparin Sodium 40 mg 09/20/19 10:00 09/22/19 09:34 Lovenox - SQ Not Given DAILY VANESA Folic Acid 1 mg 09/21/19 10:00 09/22/19 09:34 Folic Acid - PO 1 mg DAILY VANESA Administration Meropenem 1 gm/ Dextrose 100 mls @ 200 mls/hr 09/20/19 18:00 09/22/19 10:46 IVPB 200 mls/hr Q8H-IV VANESA Administration Insulin Aspart 1 vial 09/20/19 07:00 09/22/19 12:49 Novolog Vial Sliding Scale - SQ Not Given ACHS [facility] Protocol Losartan Potassium 100 mg 09/21/19 10:00 09/21/19 09:56 Cozaar - PO 100 mg DAILY VANESA Administration Methotrexate 10 mg 09/25/19 10:00 Mexate - PO Sa@1000 VANESA Metoprolol Succinate 100 mg 09/21/19 10:00 09/22/19 09:34 Toprol Xl - PO 100 mg DAILY VANESA Administration Non-Formulary Medication 11 mg 09/21/19 10:00 Tofacitinib Citrate [Xeljanz Xr] PO DAILY VANESA Pantoprazole Sodium 40 mg 09/21/19 10:00 09/22/19 09:34 Protonix - PO 40 mg DAILY VANESA Administration ASSESSMENT/PLAN: Makenzie Granados is a 58 year old female with a past medical history of DM (on ozempic), HTN, RA (on xaltran), HLD, [place] (2004 without stent placement), who presents to the ED c/o fever, chills, myalgia admitted for bacteremia. Sepsis secondary to UTI - immunocompromised patient on methotrexate - WBC 12.9, febrile to 102.8, continue to monitor - likely source UTI - UA + nitrites, 2+ LE, 72 WBC, >3000 bacteria - Ucx showing E. coli with some resistance - Bcx growing E. coli with some resistance - ID consulted, recs appreciated - on meropenem, pending ID recs, will need outpatient antibiotics for bacteremia - lactic acidosis 2.8-->2.6-->1.4, resolved - abd/pelvis CT showed small patchy LLL pulmonary infiltrates, mild soft tissues stranding along left anterior pararenal fascia ad along pancreatic tail with questionable pancreatitis/pyelonephritis, diffuse hepatic steatosis, punctate hepatic and splenic granulomas, colonic divertulosis without evidence of diverticuitis - no clinical signs of pancreatitis or pyelonephritis - seen by orthopedic surgery after patient had complained of knee pain, recs appreciated, no signs of septic joint, WBAT, continue abx, DVT ppx, pain control - leukocytosis improved, afebrile since 1999 last night - renal U/S showing hypertrophed column of [place] in left mid kidney, kidneys otherwise unremarkable HTN - continue home meds, Toprol - holding losartan in setting of sepsis and bacteremia CAD hx - continue home Toprol, aspirin - echo showing EF 55-60%, no wall abnormalities, noted mild mitral annular calcification, mild aortic sclerosis, mild mitral regurg - w/ hx of CAD and HLD, would likely benefit from statin, will recommend to follow up with outpatient provider DM - ISS - BGM - A1c 5.6 - hold home meds DVT PPx - Lovenox 40SQ daily FEN - no IVF, encourage PO intake - continue to monitor electrolytes and replete as necessary - Sodium/Diabetic Diet Dispo - continue to monitor on Med-surg Visit type - Emergency Visit Emergency Visit: Yes ED Registration Date: 09/20/19 Care time: The patient presented to the Emergency Department on the above date and was hospitalized for further evaluation of their emergent condition. - New Patient This patient is new to me today: No - Critical Care Critical Care patient: No
[2019-09-22 16:44] VITALS: BMI 37.4
--- NOTE | 2019-09-22 17:43 | PN ---
Teaching Attending Note Name of Resident: Zack Mcgovern ATTENDING PHYSICIAN STATEMENT I saw and evaluated the patient. I reviewed the resident's note and discussed the case with the resident. I agree with the resident's findings and plan as documented with exceptions below. SUBJECTIVE: Patient seen and examined. no urinary or flank symptoms, feeling well. Denies any knee pain currently. OBJECTIVE: Vital Signs Period Temp Pulse Resp BP Sys/Coker Pulse Ox Last 24 Hr 98.4 F-101.5 F 66-87 18-20 106-141/65-85 96-97 Intake & Output 09/19/19 09/20/19 09/21/19 09/22/19 23:59 23:59 23:59 23:59 Intake Total 2850 600 Balance 2850 600 Weight 260 lb 261 lb 6 oz 261 lb General: obese female sitting in bed, in no acute distress Neck: soft, supple Chest: CTAB, no rales or wheezing Abdomen:Soft, obese, no CVA or suprapubic tenderness Extremities: no edema Home Medications Medication Instructions Recorded Folic Acid 1 mg PO DAILY 10/10/13 Methotrexate [Mexate -] 10 mg PO SA 10/10/13 Metoprolol Succinate 100 mg PO DAILY 10/10/13 Aspirin [ASA -] 81 mg PO DAILY 05/03/17 Omeprazole 40 mg PO DAILY 05/03/17 Albuterol Sulfate Inhaler - 1 - 2 inh PO Q4H PRN #1 inhaler 11/17/18 [Ventolin HFA Inhaler -] Losartan Potassium 100 mg PO DAILY 09/20/19 Tofacitinib Citrate [Xeljanz Xr] 11 mg PO DAILY 09/20/19 Active Medications Acetaminophen (Tylenol -) 1,000 mg PO Q6H PRN PRN Reason: PAIN LEVEL 6-10 Last Admin: 09/22/19 10:51 Dose: 1,000 mg Albuterol Sulfate (Ventolin Hfa Inhaler -) 2 puff IH Q4H PRN PRN Reason: SHORTNESS OF BREATH Albuterol Sulfate (Ventolin Hfa Inhaler -) 1 puff IH Q4H PRN PRN Reason: SHORTNESS OF BREATH Aspirin (Asa -) 81 mg PO DAILY [facility] Last Admin: 09/22/19 09:34 Dose: 81 mg Enoxaparin Sodium (Lovenox -) 40 mg SQ DAILY [facility] Last Admin: 09/22/19 09:34 Dose: Not Given Folic Acid (Folic Acid -) 1 mg PO DAILY [facility] Last Admin: 09/22/19 09:34 Dose: 1 mg Meropenem 1 gm/ Dextrose 100 mls @ 200 mls/hr IVPB Q8H-IV [facility] Last Admin: 09/22/19 10:46 Dose: 200 mls/hr Insulin Aspart (Novolog Vial Sliding Scale -) 1 vial SQ ACHS [facility]; Protocol Last Admin: 09/22/19 16:50 Dose: Not Given Losartan Potassium (Cozaar -) 100 mg PO DAILY [facility] Last Admin: 09/21/19 09:56 Dose: 100 mg Methotrexate (Mexate -) 10 mg PO Sa@1000 [facility] Metoprolol Succinate (Toprol Xl -) 100 mg PO DAILY [facility] Last Admin: 09/22/19 09:34 Dose: 100 mg Non-Formulary Medication (Tofacitinib Citrate [Xeljanz Xr]) 11 mg PO DAILY [facility] Pantoprazole Sodium (Protonix -) 40 mg PO DAILY [facility] Last Admin: 09/22/19 09:34 Dose: 40 mg Laboratory Results - last 24 hr 09/21/19 09/22/19 09/22/19 21:29 06:14 07:20 WBC 11.8 H RBC 3.38 L Hgb 10.5 L Hct 32.2 L MCV 95.2 MCH 31.0 MCHC 32.6 RDW 14.3 Plt Count 163 MPV 10.2 Sodium Potassium Chloride Carbon Dioxide Anion Gap BUN Creatinine Est GFR (CKD-EPI)AfAm Est GFR (CKD-EPI)NonAf POC Glucometer 102 86 Random Glucose Calcium 09/22/19 09/22/19 09/22/19 07:20 11:20 16:47 WBC RBC Hgb Hct MCV MCH MCHC RDW Plt Count MPV Sodium 141 Potassium 3.7 Chloride 109 H Carbon Dioxide 26 Anion Gap 7 L BUN 14.6 Creatinine 1.0 Est GFR (CKD-EPI)AfAm 71.41 Est GFR (CKD-EPI)NonAf 61.62 POC Glucometer 92 136 Random Glucose 93 Calcium 8.3 L Microbiology 09/20/19 03:20 Urine - Urine Clean Catch Urine Culture - Final Escherichia Coli 09/20/19 01:00 Blood - Peripheral Venous Blood Culture - Final Escherichia Coli 09/20/19 00:48 Blood - Peripheral Venous Blood Culture - Preliminary NO GROWTH OBTAINED AFTER 48 HOURS, INCUBATION TO CONTINUE FOR 3 DAYS. ASSESSMENT AND PLAN: 58 year old female with history of HTN, RA on Tofacitinib/MTX, HLD, CAD s/p [place] 2004, s/p gastric sleeve bariatric surgery, s/p ORIF R ankle, s/p R Knee replacement, presents with fever/chills/generalized myalgia, found with E. Coli UTI/bacteremia. -Sepsis with E. Coli UTI/bacteremia -Suspected left pyelonephritis -Right knee pain, resolved -HTN -RA on Xeljanz/Methotrexate -CAD/h/o [place] -Type II DM -Obesity (BMI 37.5) Plan: Blood/urine cx noted, suspect urinary source. CT A/P with ?Left pyelonephritis, check renal US. No clinical concerns currently. No clinical suspicion for pancreatitis currently. Discuss with ID for abx taper repeat blood cx. No active knee symptoms, Orthopedic input noted. Unlikely source of sepsis, supportive tx. Hold Anti-rheumatic drugs given sepsis Continue ASA/toprol XL. ISS. DVTPPX Lovenox dispo dc home in 24-48 hours +/- PICC with IV abx pending ID input if clinically improved PT eval. Plan discussed with patient.
[2019-09-22] MEDS ORDERED: INSULIN (NOVOLOG) ASPART 100 UNITS/ML 10ML VIAL ONE (20:51)
[2019-09-23] MEDS ORDERED: MEROPENEM 1 GM VIAL (RESTRICTED TO ID) IVPB ONE ×3 (00:40→09:05)
[2019-09-23] MEDS ORDERED: DEXTROSE 5%-WATER 100 ML IVPB ONE ×3 (00:41→09:05)
[2019-09-23] MEDS: MEROPENEM 1 GM in DEXTROSE 5%-WATER 100 ML IVPB SCH ×3 (01:52→17:18)
[2019-09-23] MEDS: ACETAMINOPHEN 500 MG TABLET (FP) PO PRN (06:38)
[2019-09-23] MEDS: INSULIN SLIDING SCALE (NOVOLOG) 1 VIAL SQ SCH ×3 (06:41→17:22)
[2019-09-23 07:35] LABS: HEMATOCRIT 33.8 % (32.4-45.2); HEMOGLOBIN 11.1 GM/dL (10.7-15.3); MCH 31.1 pg (25.7-33.7); MCHC 32.8 g/dl (32.0-36.0); MEAN CELL VOLUME 94.9 fl (80-96); PLATELET COUNT 196 K/MM3 (134-434); RBC 3.56 M/mm3 (3.60-5.2); RDW 14.4 % (11.6-15.6); WHITE BLOOD COUNT 8.5 K/mm3 (4.0-10.0)
[2019-09-23 07:57] LABS: CALCIUM 8.6 mg/dL (8.5-10.1); CREATININE 0.8 mg/dL (0.55-1.3); POTASSIUM 3.9 mmol/L (3.5-5.1)
[2019-09-23] MEDS ORDERED: ACETAMINOPHEN/CAFFEINE/BUTALBITAL 1 TAB PO ONE (09:52)
[2019-09-23] MEDS: ASPIRIN 81 MG CHEWABLE TABLETS PO SCH (09:55)
[2019-09-23] MEDS: PANTOPRAZOLE 40 MG TABLET (FP) PO SCH (09:55)
[2019-09-23] MEDS: FOLIC ACID 1 MG TABLET (FP) PO SCH (09:55)
[2019-09-23] MEDS: ENOXAPARIN NA (PORCINE) 40 MG/0.4 ML DISP.SYRIN SQ SCH (09:56)
--- NOTE | 2019-09-23 11:43 | PN ---
Progress Note, Physician History of Present Illness: AWAKE, ALERT IN BED NO FOCAL COMPLAINT DENIES DYSURIA. NO C/O ABDOMINAL PAIN N/V TEMPS DOWN AFEBRILE WBC IMPROVED WNL BC, URINE C/S E COLI - Current Medication List Current Medications: Active Medications Acetaminophen (Tylenol -) 1,000 mg PO Q6H PRN PRN Reason: PAIN LEVEL 6-10 Last Admin: 09/23/19 06:38 Dose: 1,000 mg Albuterol Sulfate (Ventolin Hfa Inhaler -) 2 puff IH Q4H PRN PRN Reason: SHORTNESS OF BREATH Albuterol Sulfate (Ventolin Hfa Inhaler -) 1 puff IH Q4H PRN PRN Reason: SHORTNESS OF BREATH Aspirin (Asa -) 81 mg PO DAILY [facility] Last Admin: 09/23/19 09:55 Dose: 81 mg Enoxaparin Sodium (Lovenox -) 40 mg SQ DAILY [facility] Last Admin: 09/23/19 09:56 Dose: Not Given Folic Acid (Folic Acid -) 1 mg PO DAILY [facility] Last Admin: 09/23/19 09:55 Dose: 1 mg Meropenem 1 gm/ Dextrose 100 mls @ 200 mls/hr IVPB Q8H-IV [facility] Last Admin: 09/23/19 09:55 Dose: 200 mls/hr Insulin Aspart (Novolog Vial Sliding Scale -) 1 vial SQ ACHS [facility]; Protocol Last Admin: 09/23/19 06:41 Dose: Not Given Losartan Potassium (Cozaar -) 100 mg PO DAILY [facility] Last Admin: 09/21/19 09:56 Dose: 100 mg Metoprolol Succinate (Toprol Xl -) 100 mg PO DAILY [facility] Last Admin: 09/23/19 09:56 Dose: 100 mg Non-Formulary Medication (Tofacitinib Citrate [Xeljanz Xr]) 11 mg PO DAILY [facility] Pantoprazole Sodium (Protonix -) 40 mg PO DAILY [facility] Last Admin: 09/23/19 09:55 Dose: 40 mg - Objective Vital Signs: Vital Signs Temperature 97.9 F 09/23/19 10:00 Pulse Rate 68 09/23/19 10:00 Respiratory Rate 18 09/23/19 10:00 Blood Pressure 125/67 09/23/19 10:00 O2 Sat by Pulse Oximetry (%) 94 L 09/23/19 09:00 Constitutional: Yes: Well Nourished Cardiovascular: Yes: Regular Rate and Rhythm, S1, S2 Respiratory: Yes: CTA Bilaterally Gastrointestinal: Yes: Normal Bowel Sounds, Soft, Abdomen, Obese. No: Tenderness Edema: No Labs: CBC, BMP 09/23/19 07:05 09/23/19 07:05 INR, PTT INR 0.97 (0.83-1.09) 09/20/19 00:46 Assessment/Plan GRAM NEGATIVE BACTEREMIA/ SEPSIS PROBABLE PYELONEPHRITIS FEVER/ LEUKOCYTOSIS IMPROVED RA ON IMMUNOSUPPRESSIVE THERAPY LACTIC ACIDOSIS RESOLVED CEPHALOSPORIN ? QUINOLONE ALLERGIES DAY #5 ANTIBIOTICS AFTER +BC MAY SUBSTITUTE ERTAPENEM 1GM QD FOR ADDITIONAL 10D PICC FOR OUTPTIENT ANTIBIOTIC THERPAY
--- NOTE | 2019-09-23 13:28 | PN ---
Teaching Attending Note Name of Resident: Zack Mcgovern ATTENDING PHYSICIAN STATEMENT I saw and evaluated the patient. I reviewed the resident's note and discussed the case with the resident. I agree with the resident's findings and plan as documented with exceptions below. SUBJECTIVE: Patient seen and examined. no complaints, no urinary, abdominal or knee symptoms. OBJECTIVE: Vital Signs Period Temp Pulse Resp BP Sys/Coker Pulse Ox Last 24 Hr 97.9 F-99.5 F 66-74 17-20 124-149/67-73 94-95 Intake & Output 09/20/19 09/21/19 09/22/19 09/23/19 23:59 23:59 23:59 23:59 Intake Total 2850 850 Balance 2850 850 Weight 260 lb 261 lb 6 oz 261 lb General: sitting in bed, no acute distress Abdomen:Soft, obese, NT, no suprapubic or CVA tenderness Extremities: no edema Chest: CTAB, no rales or wheezing Home Medications Medication Instructions Recorded Folic Acid 1 mg PO DAILY 10/10/13 Methotrexate [Mexate -] 10 mg PO SA 10/10/13 Metoprolol Succinate 100 mg PO DAILY 10/10/13 Aspirin [ASA -] 81 mg PO DAILY 05/03/17 Omeprazole 40 mg PO DAILY 05/03/17 Albuterol Sulfate Inhaler - 1 - 2 inh PO Q4H PRN #1 inhaler 11/17/18 [Ventolin HFA Inhaler -] Losartan Potassium 100 mg PO DAILY 09/20/19 Tofacitinib Citrate [Xeljanz Xr] 11 mg PO DAILY 09/20/19 Ertapenem Sodium [Ertapenem] 1 gm IJ DAILY #10 vial 09/23/19 Active Medications Acetaminophen (Tylenol -) 1,000 mg PO Q6H PRN PRN Reason: PAIN LEVEL 6-10 Last Admin: 09/23/19 06:38 Dose: 1,000 mg Albuterol Sulfate (Ventolin Hfa Inhaler -) 2 puff IH Q4H PRN PRN Reason: SHORTNESS OF BREATH Albuterol Sulfate (Ventolin Hfa Inhaler -) 1 puff IH Q4H PRN PRN Reason: SHORTNESS OF BREATH Aspirin (Asa -) 81 mg PO DAILY [facility] Last Admin: 09/23/19 09:55 Dose: 81 mg Enoxaparin Sodium (Lovenox -) 40 mg SQ DAILY [facility] Last Admin: 09/23/19 09:56 Dose: Not Given Folic Acid (Folic Acid -) 1 mg PO DAILY [facility] Last Admin: 09/23/19 09:55 Dose: 1 mg Meropenem 1 gm/ Dextrose 100 mls @ 200 mls/hr IVPB Q8H-IV [facility] Last Admin: 09/23/19 09:55 Dose: 200 mls/hr Insulin Aspart (Novolog Vial Sliding Scale -) 1 vial SQ ACHS [facility]; Protocol Last Admin: 09/23/19 12:05 Dose: Not Given Losartan Potassium (Cozaar -) 100 mg PO DAILY [facility] Last Admin: 09/21/19 09:56 Dose: 100 mg Metoprolol Succinate (Toprol Xl -) 100 mg PO DAILY [facility] Last Admin: 09/23/19 09:56 Dose: 100 mg Non-Formulary Medication (Tofacitinib Citrate [Xeljanz Xr]) 11 mg PO DAILY [facility] Pantoprazole Sodium (Protonix -) 40 mg PO DAILY [facility] Last Admin: 09/23/19 09:55 Dose: 40 mg Laboratory Results - last 24 hr 09/22/19 09/23/19 09/23/19 16:47 06:28 07:05 WBC 8.5 RBC 3.56 L Hgb 11.1 Hct 33.8 MCV 94.9 MCH 31.1 MCHC 32.8 RDW 14.4 Plt Count 196 D MPV 10.0 Sodium Potassium Chloride Carbon Dioxide Anion Gap BUN Creatinine Est GFR (CKD-EPI)AfAm Est GFR (CKD-EPI)NonAf POC Glucometer 136 91 Random Glucose Calcium 09/23/19 09/23/19 07:05 11:56 WBC RBC Hgb Hct MCV MCH MCHC RDW Plt Count MPV Sodium 142 Potassium 3.9 Chloride 109 H Carbon Dioxide 28 Anion Gap 5 L BUN 10.0 Creatinine 0.8 Est GFR (CKD-EPI)AfAm 93.53 Est GFR (CKD-EPI)NonAf 80.70 POC Glucometer 104 Random Glucose 100 Calcium 8.6 Microbiology 09/22/19 11:40 Blood - Peripheral Venous Blood Culture - Preliminary NO GROWTH OBTAINED AFTER 24 HOURS, INCUBATION TO CONTINUE FOR 4 DAYS. 09/22/19 11:30 Blood - Peripheral Venous Blood Culture - Preliminary NO GROWTH OBTAINED AFTER 24 HOURS, INCUBATION TO CONTINUE FOR 4 DAYS. 09/20/19 00:48 Blood - Peripheral Venous Blood Culture - Preliminary NO GROWTH OBTAINED AFTER 72 HOURS, INCUBATION TO CONTINUE FOR 2 DAYS. 09/20/19 03:20 Urine - Urine Clean Catch Urine Culture - Final Escherichia Coli 09/20/19 01:00 Blood - Peripheral Venous Blood Culture - Final Escherichia Coli ASSESSMENT AND PLAN: 58 year old female with history of HTN, RA on Tofacitinib/MTX, HLD, CAD s/p [place] 2004, s/p gastric sleeve bariatric surgery, s/p ORIF R ankle, s/p R Knee replacement, presents with fever/chills/generalized myalgia, found with E. Coli UTI/bacteremia. -Sepsis with E. Coli UTI/bacteremia -Suspected left pyelonephritis -Right knee pain, resolved -HTN -RA on Xeljanz/Methotrexate -CAD/h/o [place] -Type II DM -Obesity (BMI 37.5) Plan: Repeat blood cx neg so far. Afebrile, normal WBC renal US with no concerns for pyelonephritis ID input noted, Ertapenem for additional 10 days. Recommend holding RA meds (Xeljanz/methotrexate) till antibiotic treatment completed. Discuss with patient to address with her kick press setter. resume other home meds PICC line dc home with IV ertapenem for additional 10 days and outpatient follow up Discussed with patient in detail, all questions answered.
[2019-09-23] MEDS ORDERED: SUMAtriptan SUCCINATE 25 MG TABLET PO PRN (13:31)
--- NOTE | 2019-09-23 16:16 | DS ---
Physical Exam: SUBJECTIVE: Patient seen and examined at the bedside. Stated she was doing well and was eager to go home. Received PICC line for IV antibiotics. Had some loose , non-smelling stools post contrast that were improving. Denied cp, sob, abd pain, n/v, fever, chills, numbness, tingling, dysuria, hematuria. OBJECTIVE: Vital Signs Period Temp Pulse Resp BP Sys/Coker Pulse Ox Last 24 Hr 97.9 F-99.5 F 65-74 17-20 111-149/67-73 94-95 PHYSICAL EXAM GENERAL: The patient is awake, alert, and fully oriented, in no acute distress. HEAD: Normal with no signs of trauma. EYES: PERRL, extraocular movements intact, sclera anicteric, conjunctiva clear. ENT: Oropharynx clear without exudates, moist mucous membranes. NECK: Trachea midline, full range of motion, supple. LUNGS: Breath sounds equal, clear to auscultation bilaterally, no wheezes, no crackles, no accessory muscle use. HEART: Regular rate and rhythm, S1, S2 without murmur, rub or gallop. ABDOMEN: Soft, nontender, nondistended, normoactive bowel sounds, no guarding, no rebound, no masses. EXTREMITIES: 2+ pulses, warm, well-perfused, no edema. NEUROLOGICAL: Cranial nerves II through XII grossly intact. 5/5 muscle strength upper and lower extremities bilaterally. PSYCH: Normal mood, normal affect. SKIN: Warm, dry, normal turgor, no rashes or lesions noted. LABS Laboratory Results - last 24 hr 09/22/19 09/23/19 09/23/19 16:47 06:28 07:05 WBC 8.5 RBC 3.56 L Hgb 11.1 Hct 33.8 MCV 94.9 MCH 31.1 MCHC 32.8 RDW 14.4 Plt Count 196 D MPV 10.0 Sodium Potassium Chloride Carbon Dioxide Anion Gap BUN Creatinine Est GFR (CKD-EPI)AfAm Est GFR (CKD-EPI)NonAf POC Glucometer 136 91 Random Glucose Calcium 09/23/19 09/23/19 07:05 11:56 WBC RBC Hgb Hct MCV MCH MCHC RDW Plt Count MPV Sodium 142 Potassium 3.9 Chloride 109 H Carbon Dioxide 28 Anion Gap 5 L BUN 10.0 Creatinine 0.8 Est GFR (CKD-EPI)AfAm 93.53 Est GFR (CKD-EPI)NonAf 80.70 POC Glucometer 104 Random Glucose 100 Calcium 8.6 HOSPITAL COURSE: Makenzie Granados is a 58 year old female with a past medical history of DM (on ozempic), HTN, RA (on xaltran), HLD, [place] (2004 without stent placement), who presents to the ED c/o fever, chills, myalgia admitted for bacteremia. Patient had elevated fevers to 102.8, elevated WBC and was deemed to be in sepsis secondary to UTI. Lactic acidosis present on admission resolved with fluid hydration. Urinalysis and urine culture were positive for E.coli with some resistance. Blood cultures positive for same E coli as urine. Patient received Zosyn and transitioned to meropenem. Septic symptoms resolved with antibiotic and fluid administration. Patient received PICC line and will complete 10 additional days of IV antibiotics on ertapenem. Abd/pelvis CT showed small patchy LLL pulmonary infiltrates, mild soft tissues stranding along left anterior pararenal fascia ad along pancreatic tail with questionable pancreatitis/pyelonephritis, diffuse hepatic steatosis, punctate hepatic and splenic granulomas, colonic divertulosis without evidence of diverticuitis. Patient was advised to follow up with gastroenterology for these findings. Renal U/S showed hypertrophed column of Ramone in left mid kidney, kidneys otherwise unremarkable. Patient had a history of CAD and echo showed EF 55-60%, no wall abnormalities, noted mild mitral annular calcification, mild aortic sclerosis, mild mitral regurg. Patient was advised to follow up with her primary care provider. Patient will complete an additional 10 days of ertapenem and follow up with infectious disease. While receiving antibiotics, patient should not take her medications for rheumatoid arthritis and follow up with her grey tender. Patient was spoken to about the plan, was in agreement, and reiterated it. Patient was discharged in stable medical condition. Date of Admission:09/20/19 Date of Discharge: 09/23/19 Minutes to complete discharge: 35 Discharge Summary Problems reviewed: Yes Reason For Visit: URINARY TRACT INFECTION Condition: Stable - Instructions Diet, Activity, Other Instructions: You were admitted after you had developed fevers, chills, body aches, weakness. You had a Flu test performed which was negative. You had a urinalysis performed which showed that you had a urinary tract infection and you were started on antibiotics which you will complete at home. Urine and blood cultures showed that you had an infection in your urine that was also in your blood. You will complete a total of 14 days of IV ertapenem. You were given intravenous fluids to help with your symptoms. A CT scan of your your abdomen and pelvis showed that you had some changes in your liver (diffuse hepatic steatosis and punctate hepatic and splenic granulomas) and diverticuli (outpouchings) of your colon for which you should follow up with a hackler doll wigs (stomach, liver, intestines doctor). MEDICATIONS You will need a PICC line to continue your IV antibiotics. Please take IV Ertapenem 1gm daily. You will need to complete an additional 10 days of antibiotics for a grand total of 14 days. Your last day of antibiotics will be on October 03. RECOMMEND HOLDING YOUR RHEUMTOID ARTHRITIS MEDICATION (METHOTREXATE AND XELJANZ ) while being treated for infection. You can discuss with your grey tender in this regard. Continue to take all of your other home medication as prescribed. INSTRUCTIONS: Routine PICC line care Blood work CBC, BMP, LFTs in 1 week with your doctor while on antibiotics. Recommend holding your rheumatoid arthritis medications while being treated for infection. You can discuss with your grey tender in this regard. REFERRALS Blood work in 1 week CBC, BMP, LFTs while on antibiotics, with your doctor. Please see your primary care doctor, Mark Garner, within 1 week. Please see the hackler doll wigs, Dr. Ryan Randolph, within 1 week. Please see the infectious disease doctor, Dr. Juan Coelho, after you complete the IV antibiotics. Please see your grey tender, Dr. Dax Lyon, within 1 week. If you have any further symptoms of weakness, trouble breathing, cough, muscle pains, or any other general feelings of unwellness, please call 911 or go to your nearest emergency room. Referrals: Juan Coelho MD [Staff Physician] - 2 Weeks Tavo Randolph DO [Staff Physician] - 1 Week Mrak Garner [Primary Care Provider] - 1 Week Disposition: [facility]/HOME HEALTH CARE - Home Medications Comprehensive Discharge Medication List: Ambulatory Orders Folic Acid 1 mg PO DAILY 10/10/13 Methotrexate [Mexate -] 10 mg PO SA 10/10/13 Metoprolol Succinate 100 mg PO DAILY 10/10/13 Aspirin [ASA -] 81 mg PO DAILY 05/03/17 Omeprazole 40 mg PO DAILY 05/03/17 Albuterol Sulfate Inhaler - [Ventolin HFA Inhaler -] 1 - 2 inh PO Q4H PRN #1 inhaler 11/17/18 Losartan Potassium 100 mg PO DAILY 09/20/19 Tofacitinib Citrate [Xeljanz Xr] 11 mg PO DAILY 09/20/19 Ertapenem Sodium [Ertapenem] 1 gm IJ DAILY #10 vial 09/23/19 Problem List - Problems (1) Fever Code(s): R50.9 - FEVER, UNSPECIFIED Qualifiers: Fever type: unspecified Qualified Code(s): R50.9 - Fever, unspecified (2) Sepsis Code(s): A41.9 - SEPSIS, UNSPECIFIED ORGANISM (3) UTI (urinary tract infection) Code(s): N39.0 - URINARY TRACT INFECTION, SITE NOT SPECIFIED This patient is new to me today: No Emergency Visit: Yes ED Registration Date: 09/20/19 Care time: The patient presented to the Emergency Department on the above date and was hospitalized for further evaluation of their emergent condition. Critical Care patient: No - Discharge Referral Referred to [facility] No
[2019-09-23 17:23] VITALS: BP 145/84; PULSE 72; TEMP 98
[2019-09-25] MEDS ORDERED: METHOTREXATE 2.5 MG TABLET PO SCH (10:00)
== END 2019-09-23 19:04 | disposition home health service (06) | DRG 872 ==
LOC: JER 23:48 → JERBED 09-20 05:11 → J7W 09-20 23:32
PROVIDERS: ADMIT Internal Medicine; ATTEND Hospitalist
PROC: 02HV33Z Insertion of Infusion Device into Superior Vena Cava, Percutaneous Approach (ICD-10-PCS; principal; 2019-09-23)
PROC: B518ZZA Fluoroscopy of Superior Vena Cava, Guidance (ICD-10-PCS; 2019-09-23)
DX: A41.9 Sepsis, unspecified organism (principal); N39.0 Urinary tract infection, site not specified; E87.2 Acidosis; J06.9 Acute upper respiratory infection, unspecified; I10 Essential (primary) hypertension; I25.10 Atherosclerotic heart disease of native coronary artery without angina pectoris; E78.5 Hyperlipidemia, unspecified; B96.20 Unspecified Escherichia coli [E. coli] as the cause of diseases classified elsewhere; E11.9 Type 2 diabetes mellitus without complications; Z68.37 Body mass index [BMI] 37.0-37.9, adult; M25.561 Pain in right knee; D72.829 Elevated white blood cell count, unspecified; R00.0 Tachycardia, unspecified; M06.9 Rheumatoid arthritis, unspecified; E66.01 Morbid (severe) obesity due to excess calories
CPT/HCPCS: 36415; 36569; 71045-TC-FY; 74176-TC; 76775-TC; 80048; 80053; 81003; 82962; 83036; 83605; 83735; 84100; 84484; 85025; 85027; 85610; 85730; 87040; 87086; 87186; 87804; 93005; 93010; 93306-TC; 97116-GP; 97161-GP; 99285-25; C1751; J7030

== ENCOUNTER 2019-10-12 14:49 | Emergency (ER) | payer OTHER ==
--- NOTE | 2019-10-12 14:51 | PDOC ---
Rapid Medical Evaluation Medical Evaluation: Allergies Allergy/AdvReac Type Severity Reaction Status Date / Time cephalexin monohydrate Allergy Rash Verified 09/20/19 00:20 [From Keflex] levofloxacin [From Levaquin] Allergy Rash Verified 09/20/19 00:20 I have performed a brief in-person evaluation of this patient. The patient presents with a chief complaint of: completed 14 days of abx via PICC line for sepsis 10/03; PICC was removed 10/08; c/o R arm pain since the PICC was removed from there; patient had RUE US done today which shows clot ( report is not yet in); PCP made aware of findings and advised to come to ER Pertinent physical exam findings: +R upper arm swelling; no change in skin color I have ordered the following: Labs The patient will proceed to the ED for further evaluation. 10/12/19 14:50
[2019-10-12 15:00] VITALS: BP 169/89; PULSE 65; TEMP 97.9; BMI 38.0
--- NOTE | 2019-10-12 15:20 | PDOC ---
History of Present Illness - General Chief Complaint: Revisit,Radiology Variance Stated Complaint: RT HAND PAIN Time Seen by Provider: 10/12/19 14:50 - History of Present Illness Initial Comments: The pt is a 58F w/ a history of HTN, RA, recent bacteremia s/p PICC placement and removal (3d ago) who presents for evaluation of acute RUE DVT demonstrated on US today. The pt reports RUE swelling and tenderness. She denies changes in sensation, weakness, tingling, SOB, CP. She denies history of previous DVT/PE. She denies fevers/chills. PICC was removed 3 days ago. ID: Dr. Coelho 10/12/19 15:57 Past History - Past Medical History Allergies/Adverse Reactions: Allergies Allergy/AdvReac Type Severity Reaction Status Date / Time cephalexin monohydrate Allergy Rash Verified 10/12/19 15:00 [From Keflex] levofloxacin [From Levaquin] Allergy Rash Verified 10/12/19 15:00 Home Medications: Ambulatory Orders Folic Acid 1 mg PO DAILY 10/10/13 Methotrexate [Mexate -] 10 mg PO SA 10/10/13 Metoprolol Succinate 100 mg PO DAILY 10/10/13 Aspirin [ASA -] 81 mg PO DAILY 05/03/17 Omeprazole 40 mg PO DAILY 05/03/17 Albuterol Sulfate Inhaler - [Ventolin HFA Inhaler -] 1 - 2 inh PO Q4H PRN #1 inhaler 11/17/18 Losartan Potassium 100 mg PO DAILY 09/20/19 Tofacitinib Citrate [Xeljanz Xr] 11 mg PO DAILY 09/20/19 Ertapenem Sodium [Ertapenem] 1 gm IJ DAILY #10 vial 09/23/19 Apixaban [Eliquis -] 5 mg PO BID #70 tablet 10/12/19 Apixaban [Eliquis -] 5 mg PO BID #70 tablet 10/12/19 Cardiac Disorders: Yes (-2007) COPD: Yes Diabetes: Yes GI Disorders: Yes (chronic heartburn) HTN: Yes Hypercholesterolemia: Yes - Surgical History Abdominal Surgery: (GASTRIC SLEEVE) Gastric Stapling: No (GASTRIC SLEEVE) Orthopedic Surgery: Yes (RIGHT KNEE TOTAL KNEE REPLACEMENT) - Psycho Social/Smoking Cessation Hx Smoking History: Never smoked Have you smoked in the past 12 months: No Number of Cigarettes Smoked Daily: 30 If you are a former smoker, when did you quit?: 2007 Information on smoking cessation initiated: No Hx Alcohol Use: No Drug/Substance Use Hx: No Substance Use Type: None Hx Substance Use Treatment: No Review of Systems - Review of Systems Able to Perform ROS?: Yes Comments:: GENERAL/CONSTITUTIONAL: No fever or chills. No weakness HEAD, EYES, EARS, NOSE AND THROAT: No change in vision. No change in hearing. No sore throat CARDIOVASCULAR: No chest pain or shortness of breath RESPIRATORY: Denies cough, hemoptysis GASTROINTESTINAL: No nausea, vomiting, diarrhea or constipation GENITOURINARY: No dysuria, frequency, or change in urination MUSCULOSKELETAL: No joint or muscle swelling or pain. No neck or back pain SKIN: No rash NEUROLOGIC: No headache, vertigo, loss of consciousness, or change in strength/ sensation ENDOCRINE: No increased thirst. No abnormal weight change HEMATOLOGIC/LYMPHATIC: Denies previous history of DVT ALLERGIC/IMMUNOLOGIC: No hives or skin allergy 10/12/19 15:19 Is the patient limited Luxem[place]ish proficient: No *Physical Exam - Vital Signs Last Vital Signs Temp Pulse Resp BP Pulse Ox 97.9 F 65 16 169/89 100 10/12/19 14:50 10/12/19 14:50 10/12/19 14:50 10/12/19 14:50 10/12/19 14:50 - Physical Exam GENERAL: Awake, alert, and oriented to person/place/time, in no acute distress HEAD: No signs of trauma, normocephalic, atraumatic EYES: PERRLA, EOMI, sclera anicteric, conjunctiva clear ENT: Hearing grossly normal, nares patent, oropharynx clear without exudates. Moist mucosa LUNGS: No distress, speaks in full sentences, clear to auscultation bilaterally HEART: Regular rate and rhythm, normal S1 and S2, no murmurs appreciated, peripheral pulses normal and equal bilaterally ABDOMEN: Soft, protuberant, nontender, normoactive bowel sounds. No guarding, no rebound EXTREMITIES: RUE swelling from brachium to mid forearm, no swelling of R hand/ wrist NEUROLOGICAL: Cranial nerves II through XII grossly intact. Normal speech, normal gait, no focal sensorimotor deficits SKIN: Warm, Dry 10/12/19 15:19 ED Treatment Course - LABORATORY CBC & Chemistry Diagram: 10/12/19 16:03 10/12/19 16:03 - RADIOLOGY Radiograph Interpretation: US/DUPLEX VASCUL US-1 ARM HISTORY PROVIDED: Pain and swelling right upper extremity. Real time and doppler evaluation of the right upper extremity demonstrates the following: Occlusive thrombus is identified within the proximal brachial vein. A small amount of flow is noted within the more distal brachial vein. The internal jugular, subclavian, axillary, radial and ulnar veins are patent with normal venous flow documented within these vessels. Thrombus is also noted within the basilic and median cubital veins. The cephalic vein is patent. IMPRESSION: 1. Extensive DVT within the brachial vein. 2. Superficial thrombosis involving the basilic and median cubital veins. Please see above discussion. 10/12/19 15:21 Medical Decision Making - Medical Decision Making The pt is a 58F w/ a history of HTN, RA, recent bacteremia s/p PICC placement and removal (3d ago) who presents for evaluation of acute RUE DVT demonstrated on US today. ED Course CMP, CBC, Coags Case discussed with Dr. Florian, if renal and liver function stable, will give Eliquis 10mg PO BID for 1 week then 5mg PO BID after. Will f/u in office 10/12/19 16:26 No LEBRON LFTs wnl No leukocytosis No anemia Plan for DC on Eliquis Rx sent to pt's pharmacy Plan for D/C w/ PCP f/u Discharge instructions and return precautions given Patient in agreement and verbalized understanding Dispo: Home 10/12/19 16:54 Discharge - Discharge Information Problems reviewed: Yes Clinical Impression/Diagnosis: Deep vein thrombosis (DVT) of brachial vein of right upper extremity Qualifiers: Chronicity: acute Qualified Code(s): I82.621 - Acute embolism and thrombosis of deep veins of right upper extremity Condition: Stable Disposition: HOME - Admission No - Additional Discharge Information Prescriptions: Apixaban [Eliquis -] 5 mg PO BID #70 tablet - Follow up/Referral Referrals: Mark Garner [Primary Care Provider] - Chiqui Cheney MD [Staff Physician] - - Patient Discharge Instructions Patient Printed Discharge Instructions: DI for Deep Vein Thrombosis Additional Instructions: You were seen in the Emergency Department for evaluation of a right arm thrombus. You were prescribed Eliquis for this. For the first 7 days take 2 tablets (10mg) twice a day. Then reduce the dose to 1 tablet (5mg) twice a day thereafter. Follow up with your primary care provider within a week. A prescription was sent to your pharmacy, take as directed. Return to the Emergency Department if you develop fevers, trouble breathing, chest pain, worsening swelling, - Post Discharge Activity
--- NOTE | 2019-10-12 16:14 | PDOC ---
Attending Attestation - Resident Resident Name: ArmidacindyJohnny - ED Attending Attestation I have performed the following: I have examined & evaluated the patient, The case was reviewed & discussed with the resident, I agree w/resident's findings & plan, Exceptions are as noted - HPI HPI: 10/12/19 15:39 58yo female with recent PICC line to RUE for iv abx for ecoli bacteremia and uti presents for eval of R arm swelling and pain. Pt had the picc removed. States still with pain, sent from outpt ultrasound for eval of a clot in the RUE. Pt denies cp/sob. Denies paresthesias, denies f/c. Denies rashes. Denies n/ v/d. Denies weakness. - Physicial Exam PE: 10/12/19 16:14 Gen: aaox3, nad heart: +S1s2 reg lungs: cta b/l abd: soft, nt/nd +bs ext: RUE with picc site with scab in place, mild swelling, pulses intact, no erythema, sensation intact, ttp upper extremity neuro: no focal deficits, pulses intact, muscle strength intact, no focal deficits, sensation intact - Medical Decision Making 10/12/19 16:16 a/p: 58yo female with RUE dvt s/p picc line being removed -will send labs and start noac -will monitor and reassess -most likely dc to home 10/12/19 16:43 resident discussed the case with Dr. Florian no elevated wbc 10/12/19 17:00 labs reviewed normal cr will start eliquis stable for dc to home and follow up with PMD
[2019-10-12 16:20] LABS: BASO % 0.6 % (0-2.0); HEMATOCRIT 35.2 % (32.4-45.2); HEMOGLOBIN 11.4 GM/dL (10.7-15.3); LYMPH % 31.9 % (8-40); MCH 30.2 pg (25.7-33.7); MCHC 32.3 g/dl (32.0-36.0); MEAN CELL VOLUME 93.4 fl (80-96); MONO % 9.6 % (3.8-10.2); NEUT % 55.9 % (42.8-82.8); PLATELET COUNT 214 K/MM3 (134-434); RBC 3.77 M/mm3 (3.60-5.2); RDW 14.4 % (11.6-15.6)
[2019-10-12 16:41] LABS: INR 1.13 (0.83-1.09); PROTHROMBIN TIME (PATIENT) 13.3 SEC (9.7-13.0)
[2019-10-12 16:44] LABS: ACTIVATED PTT 33.1 SECONDS (25.2-36.5)
[2019-10-12 16:46] LABS: ALBUMIN 3.1 g/dl (3.4-5.0); BILIRUBIN,TOTAL 0.4 mg/dL (0.2-1); BLOOD UREA NITROGEN 8.9 mg/dL (7-18); CALCIUM 8.9 mg/dL (8.5-10.1); CREATININE 0.9 mg/dL (0.55-1.3); POTASSIUM 3.9 mmol/L (3.5-5.1); TOT PROT 7.8 g/dl (6.4-8.2)
[2019-10-12] MEDS ORDERED: APIXABAN 5 MG TABLET PO ONE (16:59)
[2019-10-12] MEDS ORDERED: APIXABAN 5 MG TABLET ONE (17:09)
== END 2019-10-12 17:30 | disposition home or self-care (01) ==
LOC: JER 14:49
DX: I82.621 Acute embolism and thrombosis of deep veins of right upper extremity (principal); I82.611 Acute embolism and thrombosis of superficial veins of right upper extremity; Z86.19 Personal history of other infectious and parasitic diseases; I25.10 Atherosclerotic heart disease of native coronary artery without angina pectoris; I25.2 Old myocardial infarction; I10 Essential (primary) hypertension; M06.9 Rheumatoid arthritis, unspecified; E11.9 Type 2 diabetes mellitus without complications; E78.00 Pure hypercholesterolemia, unspecified; Z88.1 Allergy status to other antibiotic agents
CPT/HCPCS: 36415; 80053; 85025; 85610; 85730; 99282-25